=== PATIENT | male | born 1980 | race Caucasian/White ===

== ENCOUNTER 2021-06-01 09:41 | Emergency (ER) | payer OTHER, SELFPAY ==
--- NOTE | ~2021-06-01 | CT_ITS ---
EXAMINATION: CT ABDOMEN AND PELVIS WITH CONTRAST CLINICAL INFORMATION: Right lower quadrant and periumbilical pain. Umbilical hernia. COMPARISON: Previous CT of the abdomen and pelvis September 2011 TECHNIQUE: Multidetector volumetric images were obtained from the superior aspect of the liver through the pubic symphysis following administration 85 mL of Omnipaque 350 intravenous contrast. Sagittal and coronal reformatted images were obtained on the technologist's workstation. Oral contrast: Yes This CT examination was performed using dose optimization techniques as appropriate, variously including the following: *Automated exposure control *Adjustment of mA and/or kV according to patient size (this includes techniques or standardized protocols for targeted exams where dose is matched to indication/reason for exam; i.e. extremities or head) *Use of iterative reconstruction technique DLP: 973 mGy-cm FINDINGS: LUNG BASES: Limited due to artifact from respiratory motion. There are innumerable semisolid nodules seen at both lung bases. Largest measures 1 cm. LIVER, GALLBLADDER, AND BILIARY TREE: The liver is low in attenuation suggestive of fatty infiltration. There is a 5 mm low-attenuation lesion in the medial segment of the right lobe of the liver series 3. This is new from previous exam. Liver is otherwise unremarkable. The gallbladder is unremarkable. PANCREAS: Unremarkable. SPLEEN: Unremarkable. ADRENAL GLANDS: Unremarkable. KIDNEYS AND URETERS: There is abnormal orientation of the right kidney with anteriorly oriented renal pelvis. There is a 5 mm low-attenuation lesion in the right kidney axial image 38 series 3 that is new. The left kidney is unremarkable. BLADDER: Unremarkable. GASTROINTESTINAL TRACT: The small and large bowel are unremarkable. The appendix is is not seen and appears to have been removed. ABDOMINAL WALL: There is a 3.5 x 4 x 6 cm supraumbilical hernia containing fat. There is a smaller 2 x 3 cm umbilical hernia containing fat. There is some stranding of the fat sat this appears increased from September 2011 exam. There is fat in the right inguinal canal. LYMPH NODES: Normal. VASCULAR: Unremarkable. PELVIC VISCERA: Unremarkable. OSSEOUS STRUCTURES: Unremarkable. CT/CT abdomen pelvis w con IMPRESSION: Supra umbilical and umbilical hernias containing fat. These appear increased from September 2011 exam. Fatty liver. New 5 mm low-attenuation lesion in the medial segment of the left lobe of the liver and right kidney. Innumerable small semisolid nodules at both lung bases. Fleischner guidelines were followed.
[2021-06-01 09:48] VITALS: BP 115/80; PULSE 96; RESP 18; TEMP 37.1; O2SAT 96; BMI 41.0
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
[2021-06-01 11:20] LABS: MANUAL DIFF FLAG NO
[2021-06-01 11:23] LABS: Basophils Percent Auto 0.2 % (0-2); Hematocrit 41.7 % (42.0-52.0); Hemoglobin 13.4 g/dl (14.0-18.0); Imm Gran Abs Auto 0.02 X10*3/uL (0.00-0.03); Imm Gran Pct Auto 0.4 % (0.0-0.4); Lymphocytes Absolute Auto 1.2 X10*3/uL (1.2-4.9); Lymphocytes Percent Auto 23.8 % (20-40); Mean Corpuscular HGB Conc 32.1 g/dl (31.0-36.0); Mean Corpuscular Hemoglobin 26.8 pg (27.0-33.0); Mean Corpuscular Volume 83.4 fL (80.0-98.0); Monocytes Absolute Auto 0.4 X10*3/uL (0.1-1.2); Monocytes Percent Auto 7.3 % (2-11); Neutrophils Absolute Auto 3.4 x10*3/uL (2.0-8.3); Neutrophils Percent Auto 68.3 % (45-73); Platelet Count 236 X10*3/uL (160-400); Red Cell Distribution Width 12.7 % (11.0-16.0); White Blood Count 4.9 X10*3/uL (4.8-10.8)
[2021-06-01] MEDS: ondansetron HCL 4 MG/2 ML VIAL IVPUSH (11:32)
[2021-06-01] MEDS: 0.9 % Sodium Chloride 1,000 ML 999 ML IV (11:33)
[2021-06-01 11:39] LABS: Alanine Aminotransferase 35 U/L (0-40); Albumin Level 4.1 g/dL (3.5-5.0); Alkaline Phosphatase 49 U/L (39-117); Anion Gap 13 (12-20); Aspartate Amino Transferase 45 U/L (5-37); Bilirubin Total 0.3 mg/dL (0.0-1.0); Blood Urea Nitrogen 9 mg/dL (9-16); Carbon Dioxide 26 mmol/L (22-29); Chloride 103 mmol/L (96-108); Creatinine Clr Calc Pharmacy 111.2; Estimated Glomerular Filt Rate > 60; Glucose Random 118 mg/dL (60-115); Lipase 11 U/L (8-78); Sodium 138 mmol/L (135-145); Total Protein 7.5 g/dL (6.5-8.0)
[2021-06-01 11:47] LABS: Appearance Urine CLEAR; Color Urine YELLOW; Glucose Urine UA NEG (NEG); Leukocyte Esterase Urine NEG (NEG); Nitrite Urine NEG (NEG); Specific Gravity - Urine >= 1.030 (1.005-1.025); UACC Culture Trigger NO; Urine Blood 2+ (NEG); Urine Ketones NEG (NEG); Urine Protein 2+ MG/DL (NEG-TRACE)
[2021-06-01 12:00] LABS: RBC Urine 0-2 /HPF (0); WBC Urine 0-2 /HPF (0-4)
[2021-06-01 12:01] LABS: Amorphous Sediment Urine TRACE /LPF; Mucus Urine 1+ /LPF
[2021-06-01] MEDS: iohexoL 350 MG/ML 100 ML INFUS..BTL IV (12:11)
[2021-06-01] MEDS: Albuterol Sulfate 90 MCG 8 GM INHALER 2 PUFF INHALE (13:03)
[2021-06-01 13:05] VITALS: RESP 24; O2SAT 96
[2021-06-01] MEDS: dexAMETHasone 6 MG TABLET PO (14:02)
== END 2021-06-01 14:08 | disposition home or self-care (01) ==
PROVIDERS: Physician Assistant; Emergency Provider Emergency Medicine; PCP Internal Medicine
DX: U07.1 COVID-19 (principal); J45.909 Unspecified asthma, uncomplicated; K42.9 Umbilical hernia without obstruction or gangrene; Z79.899 Other long term (current) drug therapy; Z20.822 Contact with and (suspected) exposure to COVID-19
CPT/HCPCS: 36415; 74177; 80053; 81001; 83690; 85025; 94640; 96361; 96374; 99284; J2405; J8540; Q9967

== ENCOUNTER 2023-07-14 10:43 | Emergency (ER) | payer OTHER, SELFPAY ==
--- NOTE | ~2023-07-14 | XR_ITS ---
EXAMINATION: XR CHEST CLINICAL INFORMATION: Palpitations. Shortness of breath. COMPARISON: 08/30/2017 TECHNIQUE: Frontal view of the chest was obtained. FINDINGS: The lungs are well expanded. No focal consolidation. No pleural effusion. Cardiac silhouette is unchanged. XR/XR chest 1V IMPRESSION: No acute abnormality.
--- NOTE | 2023-07-14 10:47 | ECG_ITS ---
Test Reason : palpitations Blood Pressure : / mmHG Vent. Rate : 093 BPM Atrial Rate : 093 BPM P-R Int : 114 ms QRS Dur : 070 ms QT Int : 334 ms P-R-T Axes : 064 -07 015 degrees QTc Int : 415 ms Normal sinus rhythm with sinus arrhythmia Normal ECG No previous ECGs available Referred By: Generic ED Physician Electronically Signed By:ERNA LEWIS MD
[2023-07-14 11:09] VITALS: BP 117/79; PULSE 89; RESP 18; TEMP 36.4; O2SAT 98; BMI 39.2
--- NOTE | 2023-07-14 11:13 | ED_ITS ---
HPI - General Adult General Chief complaint: Arrhythmia/Palpitations Stated complaint: rapid heart beat Time Seen by Provider: 07/14/23 12:20 History of Present Illness HPI narrative: The patient is an ordinarily healthy 43-year-old. He is on no medications. He is somewhat overweight but has no other medical history. He works as a [employer]. The patient says that yesterday evening at around 22:00 he was doing nothing in particular while sitting at a table when he felt that his heart started to pound and race. This lasted somewhere between 5 and 10 minutes. It was quite impressive and he was distinctly aware of his heart beating and his heart beating rapidly and very hard. However the symptoms resolved after 5 or 10 minutes and he decided to not make much of it. He went to bed. At around 04:00 he woke up and went to the bathroom. He then felt his heart pounding again in a similar manner and he felt as if he might pass out. He became sweaty. This occasion lasted about 10-20 minutes. After it subsided he decided to go back to sleep and then come to the hospital in the morning. Later in the morning he woke up and was going about his daily routine when he again felt his heart racing in a manner similar to the previous 2 episodes. This was at around 09:00. He again felt his heart pounding and racing and as if he might pass out. This also lasted between 10 and 20 minutes. He sat down and rested awhile. Eventually his symptoms subsided and ultimately he felt well enough to drive himself to the hospital. The patient has never had anything like this happen to him before. The patient has had no recent illnesses or injury. He says he has been moving from 1 apartment to another and so he has been doing a fair amount of exertion recently. The patient's mother in her late 50s of colon cancer. Patient's younger brother in his late 30s also of colon cancer. The patient's father is alive but he does not know much about his father's health. He suspects his father is in his 60s. His father is an alcoholic. He is not in contact with his father. Related Data Previous Rx's Medication Instructions Recorded albuterol sulfate 90 mcg/actuation 2 puff inhalation Q4-6H PRN 01/28/22 aerosol inhaler shortness of breath or wheezing #8.5 grams benzonatate 200 mg capsule 200 mg PO TID 5 days #15 caps 06/01/21 cyclobenzaprine 5 mg tablet 5 mg PO TID PRN muscle spasm 3 06/01/21 days #9 tabs dexamethasone 6 mg tablet 6 mg PO DAILY 3 days #3 tabs 06/01/21 Allergies Allergy/AdvReac Type Severity Reaction Status Date / Time No Known Allergies Allergy Verified 07/14/23 11:15 Review of Systems 2 Review of Systems: Yes all other systems are reviewed and are negative [facility] Past Medical History Medical History Asthma COVID-19 Obese Social History Social History Advance Directives: No Advance Directives Information Provided: No Physical Exam ED Vital Signs: Vital Signs - 24 hr 07/14/23 11:09 07/14/23 12:22 07/14/23 13:52 Temperature 97.6 F 97.9 F Pulse Rate 89 71 67 Respiratory Rate 18 16 18 Blood Pressure 117/79 111/70 105/64 Pulse Oximetry 98 98 98 Oxygen Delivery Method Room Air Room Air Room Air BMI result Body Mass Index 39.2 Const Other: The patient is a somewhat overweight 43-year-old male who is awake and alert, pleasant and cooperative. He does not appear in distress. HENMT Other: Face is symmetrical, mucous membranes moist, tongue is midline. Eyes Other: Pupils are round equal, conjunctivae clear, extraocular movements intact. Neck Neck: Yes no JVD Resp Effort & Inspection: normal respiratory effort Auscultation: clear to auscultation bilaterally Cardio Rate: regular rate Rhythm: regular rhythm Heart sounds: S1 normal heart sound present and S2 normal heart sound present GI Other: Abdomen is soft and nontender Skin Other: Skin is dry and unremarkable Neuro Other: The patient is awake, alert, pleasant, cooperative. Cranial nerves are grossly intact. He moves all extremities normally and is grossly neurologically intact. Extrem Other: The patient has some mild varicose veins apparent in both lower legs. Otherwise the lower legs are unremarkable. No calf swelling or tenderness. No asymmetry. No edema. Course Course Course Narrative: RME: 43 yold male with no pmh presents to the ED for intermittent palpitations the past two days, near syncope and mild SOB. patient denies any chest pain, recent travel, or recent surgery. EKG, labs, and CHest xray ordered. HpI and Exam and asesment to be done by ED provider. Medical Decision Making Medical Decision Making [facility] Narrative: The patient is an ordinarily healthy 43-year-old who describes having 3 episodes of palpitations with a sense of a racing heartbeat and near-syncope. These episodes occurred within the last 24 hours. The patient is a nonsmoker. There is no family history of early coronary disease at least as far as he is able to determine. His EKG shows a mildly short W[place] but no very strong findings suggestive of WPW. Based on his description of the episodes he may have had episodes of SVT or possibly AFib. I do not have a significant suspicion for more alarming processes such as an acute coronary syndrome or pulmonary embolism. His troponins are flat. His D-dimer is undetectable. His chest x- ray is clear. Other labs are unremarkable. I think he may be discharged to follow up with his regular doctor or Cardiology. It would probably be reasonable for him to have a wearable laboratory monitor for a while. He should return if worse. Lab Data 07/14/23 11:32 07/14/23 11:32 Labs: Lab Results 07/14/23 07/14/23 Range/Units 11:32 13:54 WBC 7.1 (4.8-10.8) X10*3/uL RBC 5.75 (4.60-5.80) X10*6/uL Hgb 14.5 (14.0-18.0) g/dl Hct 45.9 (42.0-52.0) % MCV 79.8 L (80.0-98.0) fL MCH 25.2 L (27.0-33.0) pg MCHC 31.6 (31.0-36.0) g/dl RDW 17.8 H (11.0-16.0) % Plt Count 345 D (160-400) X10*3/uL MPV 10.0 (9.4-12.4) fL Immature Gran % (Auto) 0.3 (0.0-0.4) % Neut % (Auto) 71.6 (45-73) % Lymph % (Auto) 20.8 (20-40) % Mccone % (Auto) 6.2 (2-11) % Eos % (Auto) 0.8 (0-4) % Baso % (Auto) 0.3 (0-2) % Lymph # (Auto) 1.5 (1.2-4.9) X10*3/uL Mccone # (Auto) 0.4 (0.1-1.2) X10*3/uL Eos # (Auto) 0.1 (0.0-0.4) X10*3/uL Baso # (Auto) 0.0 (0.0-0.2) X10*3/uL Abs Immat Gran (auto) 0.02 (0.00-0.03) X10*3/uL Absolute Neuts (auto) 5.1 (2.0-8.3) x10*3/uL Absolute Nucleated RBC 0.000 (0.0-0.012) X10*3/uL Nucleated RBC % (auto) 0.0 (0.0-0.2) /100WBC PT 11.6 (11.1-13.3) SEC INR 1.0 (0.9-1.1) APTT 26.5 (26.0-36.8) SEC D-Dimer High Sensitivty < 150 NG/ML Sodium 142 (135-145) mmol/L Potassium 4.1 (3.3-5.1) mmol/L Chloride 109 H (96-108) mmol/L Carbon Dioxide 27 (22-29) mmol/L Anion Gap 10 L (12-20) BUN 21 H (9-16) mg/dL Creatinine 1.12 (0.5-1.4) mg/dL Estim Creat Clear Calc 100.1 Estimated GFR > 60 Random Glucose 114 (60-115) mg/dL Calcium 9.5 (8.4-10.2) mg/dL Total Bilirubin 0.5 (0.0-1.0) mg/dL AST 33 (5-37) U/L ALT 55 H (0-40) U/L Alkaline Phosphatase 51 (39-117) U/L Troponin I High Sens < 2.7 < 2.7 (<3.5-35.0) ng/L C-Reactive Protein 0.28 (< or = 0.50) mg/dL B-Natriuretic Peptide 94 (<100) pg/mL Total Protein 7.4 (6.5-8.0) g/dL Albumin 4.0 (3.5-5.0) g/dL TSH 2.17 (0.32-4.0) uIU/mL Independent Interpretation I performed an independent interpretation of an: EKG Interpretation: EKG at 10:48 shows normal sinus rhythm with a sinus arrhythmia. The WY interval is 114. There is a very vague suggestion of a delta wave. Otherwise it is an unremarkable EKG. No ischemic changes. Discharge Plan Discharge Clinical Impression: Palpitations, Near syncope Patient Disposition: Home, Self-Care Additional Instructions: Your testing in the emergency room today is reassuring from the point of view of a heart attack or blood clot in your lungs, or other obviously acutely dangerous process. Nevertheless it is possible you are having abnormal rapid heart rates causing your symptoms. I think you will probably need to get a wearable laboratory monitor to try to identify what has been happening with your racing heartbeats. Therefore please contact your regular doctor's office and also the cardiology office (Dr. Landry's office) to arrange for follow-up and possible additional cardiac monitoring. Return to the emergency room if significantly worse. Prescriptions: No Action benzonatate 200 mg capsule 200 mg PO TID 5 Days Qty: 15 0RF dexamethasone 6 mg tablet 6 mg PO DAILY 3 Days Qty: 3 0RF albuterol sulfate 90 mcg/actuation HFA aerosol inhaler 2 puff inhalation Q4-6H PRN (Reason: shortness of breath or wheezing) Qty: 8.5 0RF cyclobenzaprine 5 mg tablet 5 mg PO TID PRN (Reason: muscle spasm) 3 Days Qty: 9 0RF Referrals: Po,Kylie Wilson MD [Primary Care Provider] - (Episodes of palpitations and near- syncope, ER workup is negative. Suspect possible episodes of SVT versus episodes of AFib) Marty Landry MD [Physician] - (Episodes of palpitations and near-syncope, ER workup is negative. Suspect possible episodes of SVT versus episodes of AFib) Interventions: ED Discharge Assessment Last Done: 07/14/23 14:55 Discharge Date/Time: 07/14/23 14:55
[2023-07-14 11:49] LABS: MANUAL DIFF FLAG NO
[2023-07-14 11:50] LABS: Basophils Percent Auto 0.3 % (0-2); Eosinophils Absolute Auto 0.1 X10*3/uL (0.0-0.4); Eosinophils Percent Auto 0.8 % (0-4); Hematocrit 45.9 % (42.0-52.0); Hemoglobin 14.5 g/dl (14.0-18.0); Imm Gran Abs Auto 0.02 X10*3/uL (0.00-0.03); Imm Gran Pct Auto 0.3 % (0.0-0.4); Lymphocytes Absolute Auto 1.5 X10*3/uL (1.2-4.9); Lymphocytes Percent Auto 20.8 % (20-40); Mean Corpuscular HGB Conc 31.6 g/dl (31.0-36.0); Mean Corpuscular Hemoglobin 25.2 pg (27.0-33.0); Mean Corpuscular Volume 79.8 fL (80.0-98.0); Monocytes Absolute Auto 0.4 X10*3/uL (0.1-1.2); Monocytes Percent Auto 6.2 % (2-11); Neutrophils Absolute Auto 5.1 x10*3/uL (2.0-8.3); Neutrophils Percent Auto 71.6 % (45-73); Platelet Count 345 X10*3/uL (160-400); Red Blood Count 5.75 X10*6/uL (4.60-5.80); Red Cell Distribution Width 17.8 % (11.0-16.0); White Blood Count 7.1 X10*3/uL (4.8-10.8)
[2023-07-14 11:57] LABS: Prothrombin Time 11.6 SEC (11.1-13.3)
[2023-07-14 11:59] LABS: Partial Thromboplastin Time 26.5 SEC (26.0-36.8)
[2023-07-14 12:13] LABS: Alanine Aminotransferase 55 U/L (0-40); Alkaline Phosphatase 51 U/L (39-117); Anion Gap 10 (12-20); Aspartate Amino Transferase 33 U/L (5-37); Bilirubin Total 0.5 mg/dL (0.0-1.0); Blood Urea Nitrogen 21 mg/dL (9-16); Calcium 9.5 mg/dL (8.4-10.2); Carbon Dioxide 27 mmol/L (22-29); Chloride 109 mmol/L (96-108); Creatinine Clr Calc Pharmacy 100.1; Estimated Glomerular Filt Rate > 60; Glucose Random 114 mg/dL (60-115); Potassium 4.1 mmol/L (3.3-5.1); Sodium 142 mmol/L (135-145); Total Protein 7.4 g/dL (6.5-8.0)
[2023-07-14 12:17] LABS: B Type Natriuretic Peptide 94 pg/mL (<100)
[2023-07-14 12:21] LABS: Troponin-I High Sensitivity < 2.7 ng/L (<3.5-35.0)
[2023-07-14 12:22] VITALS: BP 111/70; PULSE 71; RESP 16; TEMP 36.6; O2SAT 98
[2023-07-14 12:36] LABS: TSH reflex Free T4 2.17 uIU/mL (0.32-4.0)
[2023-07-14 13:08] LABS: D Dimer High Sensitivity < 150 NG/ML
[2023-07-14 13:10] LABS: C Reactive Protein 0.28 mg/dL (< or = 0.50)
[2023-07-14 13:52] VITALS: BP 105/64; PULSE 67; RESP 18; O2SAT 98
[2023-07-14 14:43] LABS: Troponin-I High Sensitivity < 2.7 ng/L (<3.5-35.0)
== END 2023-07-14 14:55 | disposition home or self-care (01) ==
PROVIDERS: Physician Assistant; Emergency Provider Emergency Medicine; PCP Internal Medicine
DX: R00.2 Palpitations (principal); R55 Syncope and collapse; J45.909 Unspecified asthma, uncomplicated
CPT/HCPCS: 36415; 71045; 80053; 83880; 84443; 84484; 85025; 85379; 85610; 85730; 86140; 93005; 99283

== ENCOUNTER → 2023-07-14 10:47 | Outpatient (BNV) | payer SELFPAY | PROVIDERS: Emergency Provider Emergency Medicine; PCP Internal Medicine; Visit Provider Internal Medicine Cardiovascular Disease | DX: R00.2 Palpitations (principal) | CPT/HCPCS: 93010 ==

== ENCOUNTER 2024-04-03 13:38 | Emergency (ER) | payer SELFPAY ==
--- NOTE | ~2024-04-03 | XR_ITS ---
EXAMINATION: XR CHEST CLINICAL INFORMATION: Difficulty breathing. COMPARISON: Most recent chest radiograph dated 07/14/2023. TECHNIQUE: 2 views of the chest were obtained. FINDINGS: The lungs are clear. The cardiomediastinal silhouette is normal in size. There is no pleural effusion or pneumothorax. No acute osseous abnormality. XR/XR chest 2V IMPRESSION: No acute cardiopulmonary findings. Electronically signed by: Cory Dorado MD 04/03/2024 02:12 PM [facility]
[2024-04-03 13:45] VITALS: BP 126/81; PULSE 99; RESP 18; TEMP 36.7; O2SAT 98; BMI 39.5
--- NOTE | 2024-04-03 13:47 | ED_ITS ---
HPI - General Adult General Chief complaint: Upper Respiratory Symptoms Stated complaint: pneumonia ? Time Seen by Provider: 04/03/24 14:22 Source: patient Mode of arrival: ambulatory Limitations: no limitations History of Present Illness ED Provider: Benita Juárez NP HPI narrative: Patient is a 44-year-old male who presents emergency department for evaluation. He reports 1 month ago he became ill with upper respiratory symptoms cough, congestion, tightness. After about 2 weeks symptoms had resolved for about a week. However, over the past week he started feeling shortness of breath, difficulty breathing while he was running and exercising. He reports having a fever last night of 101, this morning reports a temperature with a digital throughout mother that was ranging between 105 106 F. Took Tylenol cold and flu around 11:30 with resolution of fever. He has been eating and drinking normally. He denies any known sick contacts. He has had increased use of his albuterol inhaler without improvement in breathing and nebulizer with some improvement. Denies headache, dizziness, neck pain, neck stiffness, chest pain, sore throat, nausea, vomiting, abdominal pain, numbness or tingling of the extremities, genitourinary symptoms. Denies lower extremity redness pain or swelling, pedal edema, history of VTE /malignancy Related Data Previous Rx's ?Medication ?Instructions ?Recorded albuterol sulfate 90 mcg/actuation 2 puff inhalation Q4-6H PRN 06/01/21 aerosol inhaler shortness of breath or wheezing #8.5 grams benzonatate 200 mg capsule 200 mg PO TID 5 days #15 caps 06/01/21 cyclobenzaprine 5 mg tablet 5 mg PO TID PRN muscle spasm 3 06/01/21 days #9 tabs dexamethasone 6 mg tablet 6 mg PO DAILY 3 days #3 tabs 06/01/21 amoxicillin 500 mg capsule 1,000 mg (2 x 500 mg) PO TID 5 04/03/24 days #30 caps Allergies Allergy/AdvReac Type Severity Reaction Status Date / Time No Known Allergies Allergy Verified 04/03/24 13:50 Review of Systems Review of Systems: Yes all other systems are reviewed and are negative PMFSH Past Medical History Attestation statement: The following information was validated with the patient. Source: old records reviewed Medical History COVID-19 Obese Asthma Social History Social History Advance Directives: No Advance Directives Information Provided: Yes Physical Exam ED Vital Signs: Vital Signs - 24 hr 04/03/24 13:45 Temperature 98.1 F Pulse Rate 99 Respiratory Rate 18 Blood Pressure 126/81 Pulse Oximetry 98 Oxygen Delivery Method Room Air BMI result Body Mass Index 39.5 Appearance: Alert.?Oriented to person, place and time. No acute distress.?Normal affect. Eyes: Pupils equal, round and reactive to light.? ENT: TM normal bilaterally. Pharynx normal.?? Neck: Normal inspection.? Neck supple.??No cervical adenopathy CVS: Heart sounds normal. Normal heart rate and rhythm.? Pulses normal.?? Respiratory: No respiratory distress.? Lung sounds clear to auscultation bilaterally?? Abdomen: Soft and non-tender. Normoactive bowel sounds. Skin: Skin warm and dry.? Normal skin color.? ? Extremities: No lower extremity edema.? Neuro: Moves all extremities spontaneously. Sensation intact bilaterally. No motor deficits. Ambulates with normal steady gait. Course Course Course Narrative: This is a Rapid Medical Examination (RME) performed by Jignesh Miller PA-C in triage. Full HPI, ROS, assessment and treatment plan per primary provider in the Main ED. 44 yo male hx of asthma here for difficulty breathing x3 days. reports palpitations last night. used his albuterol inhaler which worsened his symptoms and caused chest tightness. then used his nebulizer early this morning which helped however his symptoms have not resolved. reports a temp of 106F this morning. took tylenol cold/flu around 1130 today. admits to exposure to pneumonia 4 wks ago. no other known sick contacts. + lungs clear, diminished to bases. afebrile. Plan: viral swabs, CXR Medical Decision Making Medical Decision Making MDM Narrative: Patient is a 44-year-old male past medical history of asthma, presenting for evaluation of upper respiratory symptoms. COVID-19 /RSV/influenza testing are negative. At this time history and physical exam not consistent with ACS/PE/no chest pain, no high-risk past medical history, wells score with low risk no clinical evidence of DVT. Was ill with upper respiratory symptoms 1 month ago resolution of symptoms for a week before return if symptoms again as per HPI. Currently he is Well-appearing, nontoxic, afebrile, no tachycardia or tachypnea/hypoxia. Speaking clear full sentences, ambulatory with steady gait. Lung sounds are clear to the apices bilaterally. Discussed with patient concern for bronchitis versus early pneumonia that may not be visible on the chest x- ray, given his high-grade fever, I will treat with a course of antibiotics, Discussed conservative treatment including rest, hydration, Tylenol/ibuprofen as needed for fever and body aches, saline nasal spray, humidifier, over-the- counter cold medication. Advised to follow-up with primary care provider as needed, discussed reasons to return back to the emergency department. All questions were answered. Patient discharged home in stable condition. Differential Diagnosis Differential Diagnoses: The differential diagnosis associated with the presentation includes ( See narrative above) Admission/Observation Consideration of admission/observation: Escalation of care including admission/observation considered ( see narrative above) Lab Data MDM Lab Attestation statement: I reviewed the patient's lab results. ( see narrative above) Labs: Lab Results 04/03/24 Range/Units 13:53 Influenza Type A (PCR) NEGATIVE (Negative) Influenza Type B (PCR) NEGATIVE (Negative) RSV RNA Qual (PCR) NEGATIVE (Negative) SARS-CoV-2 RNA (RT-PCR) NEGATIVE (Negative) Independent Interpretation I performed an independent interpretation of an: Plain X-Ray (No consolidation or infiltrate) Radiology Impression Discussion of test interpretation with radiology: I have reviewed the rad iologist's reading. Radiologist Impression: XR/XR chest 2V IMPRESSION: No acute cardiopulmonary findings. External Record Review External record reviewed: Outpatient record Prescription Management I considered prescription management with: Pain Medication ( acetaminophen/ibuprofen) and Antibiotic Discharge Plan Discharge Clinical Impression: Bronchitis Patient Disposition: Home, Self-Care Instructions: Acute Bronchitis (ED) Additional Instructions: Testing today for COVID flu and RSV were negative. As discussed, your chest x-ray does not show any obvious pneumonia at this time, however given your recent illness followed by a period of resolution of symptoms and return of symptoms with high-grade fever you are being treated with a course of antibiotics. Complete the entire course not skipped any doses or stop taking early even if you begin to feel better. Follow-up with your primary care doctor. Return to emergency department any new or worsening symptoms or concerns. You can take ibuprofen 200 mg, 3 tablets (600mg) every 6-8 hours as needed for pain, in addition to Tylenol 500 mg, 2 tablets (1,000mg) every 4-6 hours as needed for pain, but not to exceed 3 doses daily (3,000mg).? Continue use of your albuterol inhaler/nebulizer as needed for shortness of breath or wheezing. Prescriptions: New amoxicillin 500 mg capsule 1,000 mg PO TID 5 Days Qty: 30 0RF No Action benzonatate 200 mg capsule 200 mg PO TID 5 Days Qty: 15 0RF dexamethasone 6 mg tablet 6 mg PO DAILY 3 Days Qty: 3 0RF albuterol sulfate 90 mcg/actuation HFA aerosol inhaler 2 puff inhalation Q4-6H PRN (Reason: shortness of breath or wheezing) Qty: 8.5 0RF cyclobenzaprine 5 mg tablet 5 mg PO TID PRN (Reason: muscle spasm) 3 Days Qty: 9 0RF Referrals: Po,Kylie Wilson MD [Primary Care Provider] - Print Language: Kyrgyz
[2024-04-03 14:42] LABS: Influenza A PCR NEGATIVE (Negative); Influenza B PCR NEGATIVE (Negative); Resp Syncy Virus RNA Qual PCR NEGATIVE (Negative); SARS COV2 PCR INHOUSE NEGATIVE (Negative)
[2024-04-03 15:44] VITALS: BP 126/85; PULSE 92; RESP 16; TEMP 36.4; O2SAT 95
[2024-04-03 15:52] VITALS: BP 126/85; PULSE 92; RESP 16; TEMP 36.4; O2SAT 95
== END 2024-04-03 15:52 | disposition home or self-care (01) ==
PROVIDERS: Physician Assistant Medical; Emergency Provider Emergency Medicine; PCP Internal Medicine
DX: J40 Bronchitis, not specified as acute or chronic (principal); Z03.818 Encounter for observation for suspected exposure to other biological agents ruled out; R50.9 Fever, unspecified; R05.9 Cough, unspecified
CPT/HCPCS: 0241U; 71046; 99282; 99283

== ENCOUNTER 2024-05-21 05:55 | Emergency (ER) | payer SELFPAY ==
[2024-05-21] VITALS (11 sets, daily range): BP systolic 105–121; BP diastolic 66–91; PULSE 70–145; RESP 16–20; TEMP 36.4–37.1; O2SAT 96–100; BMI 38.8
--- NOTE | 2024-05-21 | ECG_ITS ---
Test Reason : chest px Blood Pressure : */* mmHG Vent. Rate : 141 BPM Atrial Rate : * BPM P-R Int : * ms QRS Dur : 72 ms QT Int : 290 ms P-R-T Axes : * -13 38 degrees QTcB Int : 444 ms Atrial fibrillation with rapid ventricular response Abnormal ECG When compared with ECG of 14-Jul-2023 10:48, Atrial fibrillation has replaced Sinus rhythm Vent. rate has increased by 48 bpm Referred By: Generic ED Physician Electronically Signed By: ERNA LEWIS MD
--- NOTE | ~2024-05-21 | XR_ITS ---
CLINICAL HISTORY: shortness of breath 2 view chest x-ray Comparison: CR/NJ/SR - XR CHEST 1V - 07/14/23 11:30 EDT Findings: No consolidation or effusion. Normal size heart. No acute fracture. IMPRESSION: 1. No acute findings. This document has been electronically signed by: Zuleyma Martines MD on 05/21/2024 06:49:40
[2024-05-21 06:58] LABS: MANUAL DIFF FLAG NO
[2024-05-21 06:59] LABS: Basophils Percent Auto 0.2 % (0-2); Eosinophils Percent Auto 0.5 % (0-4); Hematocrit 44.6 % (42.0-52.0); Hemoglobin 14.6 g/dl (14.0-18.0); Imm Gran Abs Auto 0.02 X10*3/uL (0.00-0.03); Imm Gran Pct Auto 0.2 % (0.0-0.4); Lymphocytes Absolute Auto 2.1 X10*3/uL (1.2-4.9); Lymphocytes Percent Auto 25.1 % (20-40); Mean Corpuscular HGB Conc 32.7 g/dl (31.0-36.0); Mean Corpuscular Volume 82.6 fL (80.0-98.0); Monocytes Absolute Auto 0.5 X10*3/uL (0.1-1.2); Neutrophils Absolute Auto 5.7 x10*3/uL (2.0-8.3); Platelet Count 317 X10*3/uL (160-400); Red Cell Distribution Width 13.2 % (11.0-16.0); White Blood Count 8.4 X10*3/uL (4.8-10.8)
[2024-05-21 07:01] LABS: Venous Blood Gas Refer to POC result
[2024-05-21 07:04] LABS: Prothrombin Time 11.7 SEC (10.9-12.4)
[2024-05-21 07:07] LABS: VBG Base Excess 1.5 mmol/L; VBG HCO3 27 mmol/L (22-26); VBG pCO2 49 mmHg; VBG pH 7.35 (7.32-7.43); VBG pO2 49 mmHg
--- NOTE | 2024-05-21 07:09 | ED_ITS ---
HPI - General Adult General Chief complaint: Upper Respiratory Symptoms Stated complaint: asthma attack Time Seen by Provider: 05/21/24 07:09 History of Present Illness ED Provider: Gina ORLANDO narrative: The patient is a 44-year-old male with a history of asthma. He is usually only prescribed an asthma inhaler. He says that he has sometimes used montelukast which he has received from friends who has been prescribed it but he has never been prescribed montelukast. Over the last 3 months the patient has had intermittent episodes of heart palpitations and shortness of breath that he has attributed to asthma. He says that his symptoms have been worse over the last 24-48 hours. This morning he felt sufficiently short of breath that he finally thought he ought to come to the emergency room because of his shortness of breath. On arrival here he was found to be in atrial fibrillation with a rapid ventricular response. He admits that during the episodes of shortness of breath recently he has had a sense of palpitations and a racing heart. He has been unaware that he has any cardiac dysrhythmia and he has no history of atrial fibrillation. He has no pain or swelling in his legs. He does not drink alcohol with any regularity. He thinks he may have a family history of atrial fibrillation. No significant chest pain. No fever, sweats, chills. Related Data Previous Rx's ?Medication ?Instructions ?Recorded albuterol sulfate 90 mcg/actuation 2 puff inhalation Q4-6H PRN 06/01/21 aerosol inhaler shortness of breath or wheezing #8.5 grams benzonatate 200 mg capsule 200 mg PO TID 5 days #15 caps 06/01/21 cyclobenzaprine 5 mg tablet 5 mg PO TID PRN muscle spasm 3 06/01/21 days #9 tabs dexamethasone 6 mg tablet 6 mg PO DAILY 3 days #3 tabs 06/01/21 amoxicillin 500 mg capsule 1,000 mg (2 x 500 mg) PO TID 5 04/03/24 days #30 caps flecainide 50 mg tablet 50 mg PO BID 30 days #60 tabs 05/21/24 metoprolol succinate 25 mg 25 mg PO DAILY #30 tabs 05/21/24 tablet,extended release 24 hr Allergies Allergy/AdvReac Type Severity Reaction Status Date / Time No Known Allergies Allergy Verified 05/21/24 06:11 Review of Systems 2 Review of Systems: Yes all other systems are reviewed and are negative [facility] Past Medical History Medical History COVID-19 Obese Asthma Physical Exam ED Vital Signs: Vital Signs - 24 hr 05/21/24 06:09 05/21/24 06:53 05/21/24 07:00 Temperature 97.6 F 98.2 F Pulse Rate 123 H 145 H Pulse Rate [Left Apical] 128 H Respiratory Rate 20 16 Blood Pressure 111/66 118/80 Pulse Oximetry 99 96 Oxygen Delivery Method Room Air 05/21/24 07:14 05/21/24 07:24 05/21/24 08:16 Temperature 98.7 F Pulse Rate 135 H 93 Pulse Rate [Left Apical] Respiratory Rate 17 Blood Pressure 116/73 110/71 Pulse Oximetry 97 100 Oxygen Delivery Method Room Air Room Air 05/21/24 09:52 05/21/24 09:57 05/21/24 12:52 Temperature 97.9 F Pulse Rate 130 H 104 H 85 Pulse Rate [Left Apical] Respiratory Rate 18 Blood Pressure 121/91 H 121/91 H 105/67 Pulse Oximetry 99 Oxygen Delivery Method 05/21/24 12:59 05/21/24 13:00 Temperature 98.0 F 97.5 F Pulse Rate 85 70 Pulse Rate [Left Apical] Respiratory Rate 18 16 Blood Pressure 105/67 105/67 Pulse Oximetry 96 96 Oxygen Delivery Method Room Air Room Air BMI result Body Mass Index 38.8 Const Other: the patient is a large man who was awake and alert and does not seem in obvious distress. HENOH Other: Face is symmetrical. Mucous membranes moist. Head: Yes normal to inspection, Yes normocephalic and Yes atraumatic Eyes General: appearance normal, both eyes and all related structures Neck Neck: Yes full ROM Resp Effort & Inspection: normal respiratory effort Auscultation: clear to auscultation bilaterally and wheezes (No wheezing) Cardio Other: Irregular rate and rhythm no murmur GI Other: abdomen is soft and nontender Skin Other: skin is dry and unremarkable Neuro Other: the patient is awake and alert with normal mental status. Cranial nerves 2-12 are intact. He moves his extremities symmetrically normally. Extrem Other: No peripheral edema Medications Administered Discontinued Medications Generic Name Dose Route Start Last Admin Trade Name Freq PRN Reason Stop Dose Admin Apixaban 5 mg 05/21/24 11:40 05/21/24 12:20 Apixaban 5 Mg Tablet PO 05/21/24 11:41 Not Given ONCE ONE Diltiazem HCl 20 mg 05/21/24 07:16 05/21/24 07:24 Diltiazem Hcl 50 Mg/10 Ml Vial IVPUSH 05/21/24 07:17 20 mg STAT STA Administration Diltiazem HCl 20 mg 05/21/24 09:25 05/21/24 09:52 Diltiazem Hcl 50 Mg/10 Ml Vial IVPUSH 05/21/24 09:26 20 mg STAT STA Administration Flecainide Acetate 50 mg 05/21/24 12:29 05/21/24 12:52 Flecainide Acetate 50 Mg Tablet PO 05/21/24 12:30 50 mg ONCE ONE Administration Furosemide 20 mg 05/21/24 11:43 05/21/24 12:20 Furosemide 20 Mg/2 Ml Vial IVPUSH 05/21/24 11:44 Not Given ONCE ONE Protocol Lactated Ringer's 1,000 mls @ 999 mls/hr 05/21/24 08:00 05/21/24 10:00 Lr IV 05/21/24 09:00 Infused .Q1H1M SHARMIN Infusion Metoprolol Succinate 50 mg 05/21/24 11:40 05/21/24 12:20 Metoprolol Succinate Er 50 Mg Tab.Er.24h PO Not Given DAILY SHARMIN Protocol Metoprolol Tartrate 25 mg 05/21/24 12:25 05/21/24 12:52 Metoprolol Tartrate 25 Mg Tablet PO 05/21/24 12:26 25 mg ONCE ONE Administration Protocol Medical Decision Making Medical Decision Making [facility] Narrative: the patient is a 44-year-old male who presents with a complaint of shortness of breath and palpitations. He has been having similar episodes many times over the last few months but considerably more intense over the last 24 hours. On exam the patient has findings consistent with atrial fibrillation with ventricular response rate. This was confirmed by 12 lead EKG. His AFib with RVR could be visualized on the monitoring specialist. His chads Vasc is 0. labs were done that were largely unremarkable including an undetectable D-dimer. The patient was given IV metoprolol initially for rate control. I consulted with Dr. Andrew who came to see the patient in the emergency department. Initially I had ordered IV diltiazem for rate control of his atrial fibrillation with rapid ventricular response rate. The patient seemed to have a decent response to this medication. Dr. Andrew requested an echocardiogram which was obtained in the emergency department. The patient's heart rate got somewhat faster and he was given a 2nd dose of IV diltiazem. Initially there was a plan to hospitalize the patient for more of a workup but he converted to a sinus rhythm prior to hospitalization. At that point Dr. Andrew felt the patient could probably be safely discharged. The patient will be started on flecainide and metoprolol. Lab Data 05/21/24 06:52 05/21/24 06:52 Labs: Lab Results 05/21/24 05/21/24 05/21/24 Range/Units 06:20 06:52 07:03 WBC 8.4 (4.8-10.8) X10*3/uL RBC 5.40 (4.60-5.80) X10*6/uL Hgb 14.6 (14.0-18.0) g/dl Hct 44.6 (42.0-52.0) % MCV 82.6 (80.0-98.0) fL MCH 27.0 (27.0-33.0) pg MCHC 32.7 (31.0-36.0) g/dl RDW 13.2 (11.0-16.0) % Plt Count 317 (160-400) X10*3/uL MPV 9.0 L (9.4-12.4) fL Immature Gran % (Auto) 0.2 (0.0-0.4) % Neut % (Auto) 68.0 (45-73) % Lymph % (Auto) 25.1 (20-40) % Crawford % (Auto) 6.0 (2-11) % Eos % (Auto) 0.5 (0-4) % Baso % (Auto) 0.2 (0-2) % Lymph # (Auto) 2.1 (1.2-4.9) X10*3/uL Crawford # (Auto) 0.5 (0.1-1.2) X10*3/uL Eos # (Auto) 0.0 (0.0-0.4) X10*3/uL Baso # (Auto) 0.0 (0.0-0.2) X10*3/uL Abs Immat Gran (auto) 0.02 (0.00-0.03) X10*3/uL Absolute Neuts (auto) 5.7 (2.0-8.3) x10*3/uL Absolute Nucleated RBC 0.000 (0.0-0.012) X10*3/uL Nucleated RBC % (auto) 0.0 (0.0-0.2) /100WBC PT 11.7 (10.9-12.4) SEC INR 1.0 (0.9-1.1) D-Dimer High Sensitivty < 150 NG/ML VBG pH 7.35 (7.32-7.43) VBG pCO2 49 mmHg VBG pO2 49 mmHg VBG HCO3 27 H (22-26) mmol/L VBG O2 Saturation 76.0 % VBG Base Excess 1.5 mmol/L Sodium 142 (135-145) mmol/L Potassium 4.2 (3.3-5.1) mmol/L Chloride 110 H (96-108) mmol/L Carbon Dioxide 27 (22-29) mmol/L Anion Gap 9 L (12-20) BUN 18 H (9-16) mg/dL Creatinine 1.03 (0.5-1.4) mg/dL Estim Creat Clear Calc 110.6 Estimated GFR > 60 Random Glucose 116 H (60-115) mg/dL Calcium 9.4 (8.4-10.2) mg/dL Magnesium 2.1 (1.6-2.6) mg/dL Total Bilirubin 0.4 (0.0-1.0) mg/dL AST 26 (5-37) U/L ALT 38 (0-40) U/L Alkaline Phosphatase 50 (39-117) U/L Troponin I High Sens < 2.7 (<3.5-35.0) ng/L B-Natriuretic Peptide 75 (<100) pg/mL Total Protein 7.9 (6.5-8.0) g/dL Albumin 4.4 (3.5-5.0) g/dL Lipase 18 (8-78) U/L TSH 3.30 (0.32-4.0) uIU/mL Influenza Type A (PCR) NEGATIVE (Negative) Influenza Type B (PCR) NEGATIVE (Negative) RSV RNA Qual (PCR) NEGATIVE (Negative) SARS-CoV-2 RNA (RT-PCR) NEGATIVE (Negative) Discharge Plan Discharge Clinical Impression: Atrial fibrillation with rapid ventricular response Patient Disposition: Home, Self-Care Instructions: A-fib (Atrial Fibrillation) (ED) Additional Instructions: It seems as though a lot of the symptoms that you have had recently are because of a new problem seemed to be having with your heart rate and rhythm. This problem is called atrial fibrillation. Fortunately you converted out of this abnormal rhythm to a normal rhythm once again while you were here in the emergency room. Your being started on 2 new medications. One of these medications is flecainide. This is a medication that helps keep you out of atrial fibrillation. Please take this 2 times a day. Additionally you are being started on medication called metoprolol which you should take once a day. This medication helps to keep your heart rate slow in case you go back into atrial fibrillation. Please pickers material handlers your prescriptions this afternoon and start taking both of them tomorrow morning. Please contact the cardiology office for a follow up appointment. Return to the emergency room if you feel significantly worse at any time. Prescriptions: New flecainide 50 mg tablet 50 mg PO BID 30 Days Qty: 60 0RF metoprolol succinate 25 mg tablet extended release 24 hr 25 mg PO DAILY Qty: 30 0RF No Action benzonatate 200 mg capsule 200 mg PO TID 5 Days Qty: 15 0RF dexamethasone 6 mg tablet 6 mg PO DAILY 3 Days Qty: 3 0RF albuterol sulfate 90 mcg/actuation HFA aerosol inhaler 2 puff inhalation Q4-6H PRN (Reason: shortness of breath or wheezing) Qty: 8.5 0RF cyclobenzaprine 5 mg tablet 5 mg PO TID PRN (Reason: muscle spasm) 3 Days Qty: 9 0RF amoxicillin 500 mg capsule 1,000 mg PO TID 5 Days Qty: 30 0RF Referrals: Ciro Andrew MD [Physician] - (new atrial fibrillation) Po,Kylie Wilson MD [Primary Care Provider] - Interventions: ED Discharge Assessment Last Done: 05/21/24 12:59 Discharge Date/Time: 05/21/24 13:00 Print Language: Arabic
[2024-05-21 07:20] LABS: B Type Natriuretic Peptide 75 pg/mL (<100)
[2024-05-21 07:21] LABS: Influenza A PCR NEGATIVE (Negative); Influenza B PCR NEGATIVE (Negative); Resp Syncy Virus RNA Qual PCR NEGATIVE (Negative); SARS COV2 PCR INHOUSE NEGATIVE (Negative)
[2024-05-21] MEDS: dilTIAZem HCL 50 MG/10 ML VIAL 20 MG IVPUSH ×2 (07:24→09:52)
[2024-05-21 07:31] LABS: Alanine Aminotransferase 38 U/L (0-40); Albumin Level 4.4 g/dL (3.5-5.0); Alkaline Phosphatase 50 U/L (39-117); Anion Gap 9 (12-20); Aspartate Amino Transferase 26 U/L (5-37); Bilirubin Total 0.4 mg/dL (0.0-1.0); Blood Urea Nitrogen 18 mg/dL (9-16); Calcium 9.4 mg/dL (8.4-10.2); Carbon Dioxide 27 mmol/L (22-29); Chloride 110 mmol/L (96-108); Creatinine Clr Calc Pharmacy 110.6; Estimated Glomerular Filt Rate > 60; Glucose Random 116 mg/dL (60-115); Lipase 18 U/L (8-78); Magnesium 2.1 mg/dL (1.6-2.6); Potassium 4.2 mmol/L (3.3-5.1); Sodium 142 mmol/L (135-145); Total Protein 7.9 g/dL (6.5-8.0)
[2024-05-21 07:36] LABS: Troponin-I High Sensitivity < 2.7 ng/L (<3.5-35.0)
[2024-05-21] MEDS: Lactated Ringers 1,000 ML 999 ML IV (08:13)
[2024-05-21 08:30] LABS: D Dimer High Sensitivity < 150 NG/ML
--- NOTE | 2024-05-21 08:50 | PC.NURSE ---
pt a&ox3, rr equal/non labored- lungs clear, ekg performed, classroom monitor applied pt afib on monitor, labs previously drawn, iv inserted- pt given dose of cardizem which slowed the rate some, 1L LR hung per order, pt states he has some generalized muscle discomfort- 2-3/10,
--- NOTE | 2024-05-21 09:24 | CA_ITS ---
Transthoracic Echocardiogram Patient (Last, First, Middle): Livan Buckner, Gender: Male Date of : 1980 Age: 44 Procedure Date: 05/21/2024 Procedure Type: Transthoracic Echocardiogram Location: ER Height: 172.72 cm Weight: 115.67 kg BSA: 2.27 m2 Heart Rate: bpm BP: 127 / 89 mmHg [employer]: Referring MD: Gustavo Fuentes MD Symptoms: new atrial fibrillation Study Quality: Fair Conclusions: - Normal left ventricular cavity size. There is mildly increased left ventricular wall thickness. The left ventricular systolic function is hyperdynamic. The visually estimated ejection fraction is >70%. There is no evidence of regional wall motion abnormalities. Diastolic function is indeterminate on the basis of available data. - Normal right ventricular cavity size and systolic function. - The left atrium is normal in size. Findings Left Ventricle Normal left ventricular cavity size. There is mildly increased left ventricular wall thickness. The left ventricular systolic function is hyperdynamic. The visually estimated ejection fraction is >70%. There is no evidence of regional wall motion abnormalities. Diastolic function is indeterminate on the basis of available data. Right Ventricle Normal right ventricular cavity size and systolic function. Atria The left atrium is normal in size. Aortic Valve The aortic valve structure and function is likely normal. There is no aortic valve stenosis. There is no aortic valve regurgitation. Mitral Valve Normal mitral valve structure and function. There is no mitral valve regurgitation. There is no mitral valve stenosis. Pulmonic Valve The pulmonic valve was not well visualized. Tricuspid Valve Normal tricuspid valve structure. There is no tricuspid valve regurgitation. Tricuspid regurgitation envelope is inadequate for calculation of right ventricular systolic pressure. Normal right atrial pressure. Great Vessels All visible segments of the aorta are normal in size. Venous The inferior vena cava is normal in size and collapses greater than 50% with inspiration. Pericardium/Pleural There is no evidence of pericardial effusion. Measurements 2D Linear Measurements IVSd: 1.05 0.6-0.9/0.6-1.0 cm LVIDd: 4.10 3.9-5.3/4.2-5.9 cm LVIDd Index: 1.81 2.4-3.2/2.2-3.1 cm/m2 LVIDs: 2.46 2.0-3.6 cm LVPWd: 1.13 0.7-1.1 cm Ao Root: 3.10 2.1-3.5 cm LA Diam: 3.90 2.7-3.8/3.0-4.0 cm LAIDs Index: 1.72 1.5-2.3 cm/m2 LV Mass: 185.90 67-162/88-224 g LV Mass Index: 81.90 43-95/49-115 g/m2 LVOT Diam: 2.10 3.0+(-)1.3 cm Mitral Valve MV Pk E: 0.61 MV Decel Time: 166.00 E'Lateral: 15.90 E'Medial: 11.00 E/E' Med: 5.60 E/E' Lat: 3.90 PHT: 49.00 MVA PHT: 4.49 Decel Sharkey: 3.68 Aortic Valve AoV Pk Dennis: 1.13 AoV Mn Dennis: 0.92 AoV VTI: 0.26 AoV Pk Grad: 5.00 Aov Mn Grad: 4.00 LORETO Cont.VTI: 1.93 LVOT LVOT Pk Dennis: 0.78 LVOT Mn Dennis: 0.54 LVOT VTI: 0.14 LVOT Pk Grad: 2.00 LVOT Mn Grad: 1.00 LVOT Diam: 2.10 LVOT Area: 3.46 Diastolic Function MV Pk E: 0.61 E'Medial: 11.00 E/E' Med: 5.60 E' Laterial: 15.90 E/E' Lat: 3.90 Right Ventricle TAPSE (mm): 22.30 Tricuspid Valve TR Pk Dennis: 1.85 TR Pk Grad: 14.00 Great Vessels Aorta Ao Root-2D: 3.10 2.0-3.7 cm Ao Asc: 2.90 2.1-3.4 cm Pulmonary Valve PV Pk Dennis: 1.18 Peak PV Grad: 6.00 Updated in Other Vendor System with Status of Final Ciro Andrew MD electronically signed on 05/21/2024 11:38:49 AM with status of Final
--- NOTE | 2024-05-21 09:56 | PC.NURSE ---
pt medicated with second dose of cardizem
--- NOTE | 2024-05-21 10:00 | PC.NURSE ---
pt continues to be afib on monitor with occasional pvcs
--- NOTE | 2024-05-21 11:40 | P.CONCA_ITS ---
History of Present Illness History of Present Illness Date of Service: 05/21/24 Requesting physician: Gustavo Fuentes Chief complaint: Afib with RVR Narrative: [age] year gentleman presenting with AFib with RVR. He has been experiencing palpitations for few months. He said proximally in February he started having palpitations which will affect him at nighttime. He also started noticing more shortness of breath and he thought that he is getting asthma attacks. He was using his inhalers more frequently with some relief but would get out of breath in the next hour or 2. He has been experiencing some orthopnea. Also experienced some chest tightness off and on. With these symptoms he presented to [facility]. He was noticed to be in AFib with RVR. He was given diltiazem boluses and heart rate is better controlled. No significant family history in the past. He was using energy drinks till February but since February he has not been using red bull. Does not smoke or drink. No other drug abuse. [facility], [facility] Past Medical History Medical History COVID-19 Obese Asthma Social History Social History Smoked in Last 30 Days: No Use of substances other than those prescribed or required for medical reasons: No Advance Directives: No Advance Directives Information Provided: Yes Do you have a plan to hurt others: No Plan Meds Allergies Allergy/AdvReac Type Severity Reaction Status Date / Time No Known Allergies Allergy Verified 05/21/24 06:11 Physical Exam 2 Vital Signs: Vital Signs: Last Vital Signs Temp 97.9 F 05/21/24 09:57 Pulse 104 H 05/21/24 09:57 Resp 18 05/21/24 09:57 BP 121/91 H 05/21/24 09:57 Pulse Ox 99 05/21/24 09:57 O2 Del Method Room Air 05/21/24 08:16 BMI result Body Mass Index 38.8 GENERAL APPEARANCE: in no acute distress, pleasant. NECK: no carotid bruit, + jugular venous distention. SKIN: no suspicious lesions, warm and dry. HEART: no murmurs, irregular rate and rhythm. LUNGS: clear to auscultation bilaterally. ABDOMEN: soft, nontender. EXTREMITIES: no edema. PERIPHERAL PULSES: equal. NEUROLOGIC: No gross deficits, AAO X 3 Objective Labs and Meds 05/21/24 06:52 05/21/24 06:52 Lab results: Laboratory Results - last 24 hr 05/21/24 05/21/24 05/21/24 06:20 06:52 07:03 WBC 8.4 RBC 5.40 Hgb 14.6 Hct 44.6 MCV 82.6 MCH 27.0 MCHC 32.7 RDW 13.2 Plt Count 317 MPV 9.0 L Immature Gran % (Auto) 0.2 Neut % (Auto) 68.0 Lymph % (Auto) 25.1 [place] % (Auto) 6.0 Eos % (Auto) 0.5 Baso % (Auto) 0.2 Lymph # (Auto) 2.1 [place] # (Auto) 0.5 Eos # (Auto) 0.0 Baso # (Auto) 0.0 Abs Immat Gran (auto) 0.02 Absolute Neuts (auto) 5.7 Absolute Nucleated RBC 0.000 Nucleated RBC % (auto) 0.0 PT 11.7 INR 1.0 D-Dimer High Sensitivty < 150 VBG pH 7.35 VBG pCO2 49 VBG pO2 49 VBG HCO3 27 H VBG O2 Saturation 76.0 VBG Base Excess 1.5 Sodium 142 Potassium 4.2 Chloride 110 H Carbon Dioxide 27 Anion Gap 9 L BUN 18 H Creatinine 1.03 Estim Creat Clear Calc 110.6 Estimated GFR > 60 Random Glucose 116 H Calcium 9.4 Magnesium 2.1 Total Bilirubin 0.4 AST 26 ALT 38 Alkaline Phosphatase 50 Troponin I High Sens < 2.7 B-Natriuretic Peptide 75 Total Protein 7.9 Albumin 4.4 Lipase 18 TSH 3.30 Influenza Type A (PCR) NEGATIVE Influenza Type B (PCR) NEGATIVE RSV RNA Qual (PCR) NEGATIVE SARS-CoV-2 RNA (RT-PCR) NEGATIVE Assessment and Plan (1) Atrial fibrillation with rapid ventricular response: Status: Acute Plan AFib with RVR in the 44-year-old gentleman. He has shortness of breath with activities. Clinically appears to be mildly overloaded. Giving 20 mg of Lasix. Adding Toprol-XL 50 mg daily. Start Eliquis 5 mg twice a day. Echocardiography has been reviewed and he has normal LV function. We can try rate control 1st and if he does not improve then can consider MALCOM cardioversion. If heart rates better controlled in his starting to feel better then we can consider doing a cardioversion in 4-6 weeks without MALCOM. Thank you for allowing me to participate in the care of your patient. Please feel free to contact me if you have any questions. Procedures Date of Service Date of Service: 05/21/24
--- NOTE | 2024-05-21 12:19 | ECG_ITS ---
Test Reason : REPEAT EKG Blood Pressure : */* mmHG Vent. Rate : 71 BPM Atrial Rate : 71 BPM P-R Int : 116 ms QRS Dur : 68 ms QT Int : 396 ms P-R-T Axes : 44 5 11 degrees QTcB Int : 430 ms Normal sinus rhythm Normal ECG When compared with ECG of 21-May-2024 06:18, Sinus rhythm has replaced Atrial fibrillation Vent. rate has decreased by 70 bpm Referred By: Gustavo Fuentes Electronically Signed By: ERNA LEWIS MD
--- NOTE | 2024-05-21 12:21 | PC.NURSE ---
this nurse noticed the patient has returned to NSR, provider was notified, greenhouse instructor was walking into pt room and this nurse spoke with cardiology about medications ordered in which he stated to hold off on the medications and he would be talking with the ED provider about what he felt the pt needed. pt to have repeat ekg hr is in the 70s
--- NOTE | 2024-05-21 12:40 | PC.NURSE ---
called pharmacy for missing med
[2024-05-21] MEDS: Flecainide Acetate 50 MG TABLET PO (12:52)
[2024-05-21] MEDS: Metoprolol Tartrate 25 MG TABLET PO (12:52)
== END 2024-05-21 13:00 | disposition home or self-care (01) ==
PROVIDERS: Emergency Medicine Emergency Medical Services; Emergency Provider Emergency Medicine; PCP Internal Medicine
DX: I48.20 Chronic atrial fibrillation, unspecified (principal); R06.02 Shortness of breath; Z03.818 Encounter for observation for suspected exposure to other biological agents ruled out; J45.909 Unspecified asthma, uncomplicated
CPT/HCPCS: 0241U; 36415; 71046; 80053; 82803; 83690; 83735; 83880; 84443; 84484; 85025; 85379; 85610; 93005; 93306; 96361; 96374; 96376; 99285; J7120

== ENCOUNTER → 2024-05-21 06:30 | Outpatient (BNV) | payer SELFPAY | PROVIDERS: PCP Internal Medicine; Visit Provider Radiology Diagnostic Radiology | DX: R06.02 Shortness of breath (principal) | CPT/HCPCS: 71046 ==

== ENCOUNTER → 2024-05-21 06:58 | Outpatient (BNV) | payer SELFPAY | PROVIDERS: Emergency Provider Emergency Medicine; PCP Internal Medicine; Visit Provider Internal Medicine Cardiovascular Disease | DX: I48.91 Unspecified atrial fibrillation (principal) | CPT/HCPCS: 93010; 93306; 99285 ==

== ENCOUNTER 2024-05-23 03:10 | Emergency (ER) | payer SELFPAY ==
--- NOTE | 2024-05-23 | ECG_ITS ---
Test Reason : CHEST PAIN Blood Pressure : */* mmHG Vent. Rate : 77 BPM Atrial Rate : 77 BPM P-R Int : 124 ms QRS Dur : 76 ms QT Int : 386 ms P-R-T Axes : 54 7 15 degrees QTcB Int : 436 ms Normal sinus rhythm with sinus arrhythmia Nonspecific ST abnormality Abnormal ECG When compared with ECG of 21-May-2024 12:43, No significant change was found Referred By: Generic ED Physician Electronically Signed By: Ciro Andrew
--- NOTE | ~2024-05-23 | XR_ITS ---
CLINICAL HISTORY: cp sob 1 view chest x-ray Comparison: CR - XR CHEST 2V - 05/21/24 06:39 EST CR/SR - XR CHEST 2V - 04/03/24 14:06 EST Findings: No consolidation or effusion. Heart size is stable. No acute fracture. IMPRESSION: 1. No acute findings. This document has been electronically signed by: Zuleyma Martines MD on 05/23/2024 04:39:54
[2024-05-23 03:15] VITALS: BP 125/77; PULSE 86; RESP 18; TEMP 36.6; O2SAT 97; BMI 39.0
[2024-05-23 03:45] LABS: Basophils Percent Auto 0.3 % (0-2); Eosinophils Absolute Auto 0.1 X10*3/uL (0.0-0.4); Eosinophils Percent Auto 0.6 % (0-4); Hematocrit 41.1 % (42.0-52.0); Hemoglobin 13.8 g/dl (14.0-18.0); Imm Gran Abs Auto 0.03 X10*3/uL (0.00-0.03); Imm Gran Pct Auto 0.3 % (0.0-0.4); Lymphocytes Percent Auto 20.9 % (20-40); MANUAL DIFF FLAG NO; Mean Corpuscular HGB Conc 33.6 g/dl (31.0-36.0); Mean Corpuscular Hemoglobin 27.7 pg (27.0-33.0); Mean Corpuscular Volume 82.4 fL (80.0-98.0); Mean Platelet Volume 9.1 fL (9.4-12.4); Monocytes Absolute Auto 0.6 X10*3/uL (0.1-1.2); Monocytes Percent Auto 6.3 % (2-11); Neutrophils Absolute Auto 6.8 x10*3/uL (2.0-8.3); Neutrophils Percent Auto 71.6 % (45-73); Platelet Count 309 X10*3/uL (160-400); Red Blood Count 4.99 X10*6/uL (4.60-5.80); Red Cell Distribution Width 13.2 % (11.0-16.0); White Blood Count 9.5 X10*3/uL (4.8-10.8)
[2024-05-23 03:46] LABS: Venous Blood Gas Refer to POC result
[2024-05-23 03:49] LABS: VBG Base Excess 4.9 mmol/L; VBG HCO3 31 mmol/L (22-26); VBG pCO2 52 mmHg; VBG pH 7.37 (7.32-7.43); VBG pO2 37 mmHg
[2024-05-23 04:06] LABS: Alanine Aminotransferase 32 U/L (0-40); Albumin Level 4.1 g/dL (3.5-5.0); Alkaline Phosphatase 50 U/L (39-117); Anion Gap 12 (12-20); Aspartate Amino Transferase 40 U/L (5-37); Bilirubin Total 0.2 mg/dL (0.0-1.0); Blood Urea Nitrogen 20 mg/dL (9-16); Calcium 8.9 mg/dL (8.4-10.2); Carbon Dioxide 26 mmol/L (22-29); Chloride 107 mmol/L (96-108); Creatinine Clr Calc Pharmacy 113.2; Estimated Glomerular Filt Rate > 60; Glucose Random 135 mg/dL (60-115); Potassium 4.1 mmol/L (3.3-5.1); Sodium 141 mmol/L (135-145); Total Protein 7.7 g/dL (6.5-8.0); Troponin-I High Sensitivity < 2.7 ng/L (<3.5-35.0)
--- NOTE | 2024-05-23 04:14 | ED_ITS ---
HPI - Chest Pain General Chief Complaint: Chest Pain Stated Complaint: diff breathing/SOB Time Seen by Provider: 05/23/24 03:58 Source: patient Mode of arrival: ambulatory Limitations: no limitations History of Present Illness ED Provider: Dr. Kim Monaco HPI narrative: Patient comes to the emergency room complaining of chest pressure, difficulty breathing when lying down. Patient states that he has history of asthma but has not been wheezing. Patient states that 2 days ago he was diagnosed with atrial fibrillation for the 1st time, patient is on flecainide and metoprolol. Patient denies chest pain or palpitations. Related Data Previous Rx's ?Medication ?Instructions ?Recorded albuterol sulfate 90 mcg/actuation 2 puff inhalation Q4-6H PRN 06/01/21 aerosol inhaler shortness of breath or wheezing #8.5 grams benzonatate 200 mg capsule 200 mg PO TID 5 days #15 caps 06/01/21 cyclobenzaprine 5 mg tablet 5 mg PO TID PRN muscle spasm 3 06/01/21 days #9 tabs dexamethasone 6 mg tablet 6 mg PO DAILY 3 days #3 tabs 06/01/21 amoxicillin 500 mg capsule 1,000 mg (2 x 500 mg) PO TID 5 04/03/24 days #30 caps flecainide 50 mg tablet 50 mg PO BID 30 days #60 tabs 05/21/24 metoprolol succinate 25 mg 25 mg PO DAILY #30 tabs 05/21/24 tablet,extended release 24 hr ibuprofen 600 mg tablet 600 mg PO TID PRN fever or pain 05/23/24 #20 tabs Allergies Allergy/AdvReac Type Severity Reaction Status Date / Time No Known Allergies Allergy Verified 05/23/24 03:19 Review of Systems 2 Review of Systems: Constitutional : No Weight loss, No Fever, No Chills, No Night Sweats, No Fatigue, No Malaise ENT/Mouth : No Hearing loss, No Ear Pain, No Nasal Congestion, No Sinus Pain, No Hoarseness, No sore throat, No Rhinorrhea, No Swallowing Difficulty Eyes: No Eye Pain, No Swelling, No Redness, No Foreign Body, No Discharge, No Vision Changes Cardiovascular : No Chest Pain, complaining of chest tightness, No SOB, No Dyspnea on Exertion, No Orthopnea, No Edema, No Palpitations Respiratory : No Cough, No Sputum, No Wheezing, No Smoke Exposure, No Dyspnea Gastrointestinal : No Nausea, No Vomiting, No Diarrhea, No Constipation, No abdominal Pain, No Hematochezia, No Melena Genitourinary : no irregular bleeding, No Dysuria, No Urinary Frequency, No Hematuria, No Urinary Incontinence, No Urgency, No Flank Pain, No Urinary Flow Changes, No Hesitancy Musculoskeletal : No joint pain, No Myalgias, No Joint Swelling Skin : No Skin Lesions, No rash Neuro : No Weakness, No Numbness, No Paresthesias, No Loss of Consciousness, No Dizziness, No Headache Psych : No Anxiety/Panic, No Depression, No SI/HI/AH/VH, No Social Issues, Heme/Lymph: No Bruising, No Bleeding,No Lymphadenopathy Endocrine : No Polyuria, No Polydipsia, No Temperature Intolerance [facility] Past Medical History Medical History (Updated 05/23/24 @ 05:42 by Kim Monaco MD) Atrial fibrillation COVID-19 Obese Asthma Social History Social History Smoked in Last 30 Days: No Use of substances other than those prescribed or required for medical reasons: No Advance Directives: No Advance Directives Information Provided: Yes Do you have a plan to hurt others: No Plan Physical Exam 2 Vital Signs: Vital Signs: Last Vital Signs Temp 97.9 F 05/23/24 03:15 Pulse 86 05/23/24 03:15 Resp 18 05/23/24 03:15 BP 125/77 05/23/24 03:15 Pulse Ox 97 05/23/24 03:15 O2 Del Method Room Air 05/23/24 03:15 BMI result Body Mass Index 39.0 Const: Other: Appearance: Alert. Oriented X3. No acute distress. Well-appearing Eyes: Pupils equal, round and reactive to light. ENT: Pharynx normal. Neck: Normal inspection. Neck supple. No lymph nodes noted. No crepitus CVS: Normal heart rate and rhythm. Pulses normal. Normal S1 and S2 Respiratory: No respiratory distress. Breath sounds normal. No Wheezing. No rales Abdomen: Soft and nontender. No rigidity. No distention. Skin: Skin warm and dry. Normal skin color. Normal skin turgor. Extremities: No lower extremity edema. No Lacerations. No Rash Neuro: Oriented X 3. No motor deficit. No sensory deficit. Moving all extremities. No slurred speech. CN 2 through 12 grossly intact Psych: calm, cooperative, normal affect Course Course Course Narrative: All of patient's labs and imaging pending. Depending on patient's labs, we may have to scan the patient's chest, patient agrees with plan. Fall, no chest pain, no chest pressure at this time. Patient states it is only present when he lays down. Medical Decision Making Medical Decision Making [facility] Narrative: My interpretation of EKG: Normal sinus rhythm, heart rate 77, no ST segment depression or elevation, no T-wave inversion, QTC 77 Patient's vitals normal, oxygen saturation 97% on room air, no oxygen desaturations with ambulation around his room. My interpretation of labs, normal hematology and chemistry, normal troponin, normal BNP, D-dimer negative. Chest x-ray does not show any acute abnormality. Patient states that when he walks his symptoms resolved. Patient likely having pleurisy. Differential Diagnosis Differential Diagnoses: The differential diagnosis associated with the presentation includes (Asthma, viral illness, pleurisy, ACS, CHF) Admission/Observation Consideration of admission/observation: Escalation of care including admission/observation considered (Patient has new diagnosis and presentation, observation was considered) Lab Data [facility] Lab Attestation statement: I reviewed the patient's lab results. 05/23/24 03:39 05/23/24 03:39 Labs: Lab Results 05/23/24 05/23/24 05/23/24 Range/Units 03:39 03:43 04:10 WBC 9.5 (4.8-10.8) X10*3/uL RBC 4.99 (4.60-5.80) X10*6/uL Hgb 13.8 L (14.0-18.0) g/dl Hct 41.1 L (42.0-52.0) % MCV 82.4 (80.0-98.0) fL MCH 27.7 (27.0-33.0) pg MCHC 33.6 (31.0-36.0) g/dl RDW 13.2 (11.0-16.0) % Plt Count 309 (160-400) X10*3/uL MPV 9.1 L (9.4-12.4) fL Immature Gran % (Auto) 0.3 (0.0-0.4) % Neut % (Auto) 71.6 (45-73) % Lymph % (Auto) 20.9 (20-40) % [place] % (Auto) 6.3 (2-11) % Eos % (Auto) 0.6 (0-4) % Baso % (Auto) 0.3 (0-2) % Lymph # (Auto) 2.0 (1.2-4.9) X10*3/uL [place] # (Auto) 0.6 (0.1-1.2) X10*3/uL Eos # (Auto) 0.1 (0.0-0.4) X10*3/uL Baso # (Auto) 0.0 (0.0-0.2) X10*3/uL Abs Immat Gran (auto) 0.03 (0.00-0.03) X10*3/uL Absolute Neuts (auto) 6.8 (2.0-8.3) x10*3/uL Absolute Nucleated RBC 0.000 (0.0-0.012) X10*3/uL Nucleated RBC % (auto) 0.0 (0.0-0.2) /100WBC PT 10.7 L (10.9-12.4) SEC INR 0.9 (0.9-1.1) D-Dimer High Sensitivty < 150 NG/ML VBG pH 7.37 (7.32-7.43) VBG pCO2 52 mmHg VBG pO2 37 mmHg VBG HCO3 31 H (22-26) mmol/L VBG O2 Saturation 54.0 % VBG Base Excess 4.9 mmol/L Sodium 141 (135-145) mmol/L Potassium 4.1 (3.3-5.1) mmol/L Chloride 107 (96-108) mmol/L Carbon Dioxide 26 (22-29) mmol/L Anion Gap 12 (12-20) BUN 20 H (9-16) mg/dL Creatinine 1.01 (0.5-1.4) mg/dL Estim Creat Clear Calc 113.2 Estimated GFR > 60 Random Glucose 135 H (60-115) mg/dL Calcium 8.9 (8.4-10.2) mg/dL Total Bilirubin 0.2 (0.0-1.0) mg/dL AST 40 H (5-37) U/L ALT 32 (0-40) U/L Alkaline Phosphatase 50 (39-117) U/L Troponin I High Sens < 2.7 (<3.5-35.0) ng/L B-Natriuretic Peptide 38 (<100) pg/mL Total Protein 7.7 (6.5-8.0) g/dL Albumin 4.1 (3.5-5.0) g/dL Radiology Impression Discussion of test interpretation with radiology: I have reviewed the radiologist's reading. Radiologist Impression: 1 view chest x-ray Comparison: CR - XR CHEST 2V - 05/21/24 06:39 EST CR/SR - XR CHEST 2V - 04/03/24 14:06 EST Findings: No consolidation or effusion. Heart size is stable. No acute fracture. IMPRESSION: 1. No acute findings. Critical Care Time Critical Care Time Critical Care Time: Yes Total Critical Care Time: 35 Attestation: I have personally provided critical care time. Time includes review of lab data, radiology results, discussion with consultants, and monitoring for potential decompensation. Intervention performed as documented. Discharge Plan Discharge Clinical Impression: Atypical chest pain, Pleurisy Patient Disposition: Home, Self-Care Instructions: Chest Pain (DC), Pleurisy (ED) Additional Instructions: Please follow-up with your primary care physician tomorrow. If you have any worsening or new symptoms, please return to the emergency room or call 911 Prescriptions: New ibuprofen 600 mg tablet 600 mg PO TID PRN (Reason: fever or pain) Qty: 20 0RF No Action benzonatate 200 mg capsule 200 mg PO TID 5 Days Qty: 15 0RF dexamethasone 6 mg tablet 6 mg PO DAILY 3 Days Qty: 3 0RF albuterol sulfate 90 mcg/actuation HFA aerosol inhaler 2 puff inhalation Q4-6H PRN (Reason: shortness of breath or wheezing) Qty: 8.5 0RF cyclobenzaprine 5 mg tablet 5 mg PO TID PRN (Reason: muscle spasm) 3 Days Qty: 9 0RF amoxicillin 500 mg capsule 1,000 mg PO TID 5 Days Qty: 30 0RF flecainide 50 mg tablet 50 mg PO BID 30 Days Qty: 60 0RF metoprolol succinate 25 mg tablet extended release 24 hr 25 mg PO DAILY Qty: 30 0RF Stand Alone Forms: Work/School Release Print Language: Malay
[2024-05-23 04:23] LABS: INTERNATIONAL NORM RATIO 0.9 (0.9-1.1); Prothrombin Time 10.7 SEC (10.9-12.4)
[2024-05-23 04:28] LABS: B Type Natriuretic Peptide 38 pg/mL (<100)
[2024-05-23 04:29] LABS: D Dimer High Sensitivity < 150 NG/ML
[2024-05-23 06:09] VITALS: BP 119/86; PULSE 74; RESP 15; TEMP 36.6; O2SAT 97
[2024-05-23 06:10] VITALS: BP 119/86; PULSE 74; RESP 15; TEMP 37; O2SAT 97
== END 2024-05-23 06:11 | disposition home or self-care (01) ==
PROVIDERS: Emergency Provider Emergency Medicine; PCP Internal Medicine
DX: R07.89 Other chest pain (principal); R06.02 Shortness of breath; R09.1 Pleurisy; I48.91 Unspecified atrial fibrillation; Z79.899 Other long term (current) drug therapy
CPT/HCPCS: 36415; 71045; 80053; 82803; 83880; 84484; 85025; 85379; 85610; 93005; 99284; 99285

== ENCOUNTER → 2024-05-23 03:29 | Outpatient (BNV) | payer SELFPAY | PROVIDERS: Emergency Provider Emergency Medicine; PCP Internal Medicine; Visit Provider Internal Medicine Cardiovascular Disease | DX: R94.31 Abnormal electrocardiogram [ECG] [EKG] (principal) | CPT/HCPCS: 93010 ==

== ENCOUNTER → 2024-05-23 03:55 | Outpatient (BNV) | payer SELFPAY | PROVIDERS: Emergency Provider Emergency Medicine; PCP Internal Medicine; Visit Provider Radiology Diagnostic Radiology | DX: R07.9 Chest pain, unspecified (principal); R06.02 Shortness of breath | CPT/HCPCS: 71045 ==

== ENCOUNTER 2024-05-30 00:19 | Emergency (ER) | payer SELFPAY ==
--- NOTE | ~2024-05-30 | XR_ITS ---
CLINICAL HISTORY: chest pain afib 1 view chest x-ray Comparison: CR - XR CHEST 1V - 05/23/24 03:49 EST Findings: No consolidation or effusion. Normal size heart. No acute fracture. IMPRESSION: 1. No acute findings. This document has been electronically signed by: Vince Baugh MD on 05/30/2024 00:52:43
--- NOTE | 2024-05-30 00:21 | ECG_ITS ---
Test Reason : afib Blood Pressure : */* mmHG Vent. Rate : 125 BPM Atrial Rate : * BPM P-R Int : * ms QRS Dur : 70 ms QT Int : 310 ms P-R-T Axes : * -5 26 degrees QTcB Int : 447 ms Atrial fibrillation with rapid ventricular response Abnormal ECG When compared with ECG of 23-May-2024 03:29, Atrial fibrillation has replaced Sinus rhythm Vent. rate has increased by 48 bpm Referred By: Generic ED Physician Electronically Signed By: ERNA LEWIS MD
[2024-05-30 00:28] VITALS: BP 136/93; PULSE 98; RESP 18; TEMP 36.8; O2SAT 98; BMI 38.8
[2024-05-30 00:54] LABS: MANUAL DIFF FLAG NO
[2024-05-30 00:55] LABS: Basophils Percent Auto 0.2 % (0-2); Eosinophils Absolute Auto 0.1 X10*3/uL (0.0-0.4); Eosinophils Percent Auto 1.1 % (0-4); Hematocrit 41.1 % (42.0-52.0); Hemoglobin 13.8 g/dl (14.0-18.0); Imm Gran Abs Auto 0.03 X10*3/uL (0.00-0.03); Imm Gran Pct Auto 0.3 % (0.0-0.4); Lymphocytes Absolute Auto 2.7 X10*3/uL (1.2-4.9); Lymphocytes Percent Auto 27.3 % (20-40); Mean Corpuscular HGB Conc 33.6 g/dl (31.0-36.0); Mean Corpuscular Hemoglobin 27.5 pg (27.0-33.0); Mean Corpuscular Volume 81.9 fL (80.0-98.0); Mean Platelet Volume 9.1 fL (9.4-12.4); Monocytes Absolute Auto 0.7 X10*3/uL (0.1-1.2); Monocytes Percent Auto 7.5 % (2-11); Neutrophils Absolute Auto 6.3 x10*3/uL (2.0-8.3); Neutrophils Percent Auto 63.6 % (45-73); Platelet Count 288 X10*3/uL (160-400); Red Blood Count 5.02 X10*6/uL (4.60-5.80); Red Cell Distribution Width 13.1 % (11.0-16.0); White Blood Count 9.8 X10*3/uL (4.8-10.8)
--- NOTE | 2024-05-30 01:06 | ED.ARRPALP ---
HPI - Arrhythmia/Palpitations General Chief Complaint: Arrhythmia/Palpitations Stated Complaint: afib Time Seen by Provider: 05/30/24 00:40 Source: patient Mode of arrival: ambulatory Limitations: no limitations History of Present Illness ED Provider: Dr. Kim Monaco HPI narrative: Patient comes to the emergency room complaining of palpitations. Patient states that he has been having URI symptoms for about a week including cough. Patient states that he has been taking [id number] medication, last dose couple of days ago, cough syrup. Patient states that today he has been having intermittent palpitations. According to the patient, the palpitations started after drinking an energy drink earlier today. However, over the last few hours it has been constant. Patient states that he has no chest pain. Patient states that it feels that he has something crawling on the inside of his chest, and then he knows that he is in atrial fibrillation. Patient states he gives compliant with his metoprolol and flecainide. Related Data Previous Rx's ?Medication ?Instructions ?Recorded albuterol sulfate 90 mcg/actuation 2 puff inhalation Q4-6H PRN 06/01/21 aerosol inhaler shortness of breath or wheezing #8.5 grams benzonatate 200 mg capsule 200 mg PO TID 5 days #15 caps 06/01/21 cyclobenzaprine 5 mg tablet 5 mg PO TID PRN muscle spasm 3 06/01/21 days #9 tabs dexamethasone 6 mg tablet 6 mg PO DAILY 3 days #3 tabs 06/01/21 amoxicillin 500 mg capsule 1,000 mg (2 x 500 mg) PO TID 5 04/03/24 days #30 caps flecainide 50 mg tablet 50 mg PO BID 30 days #60 tabs 05/21/24 metoprolol succinate 25 mg 25 mg PO DAILY #30 tabs 05/21/24 tablet,extended release 24 hr ibuprofen 600 mg tablet 600 mg PO TID PRN fever or pain 05/23/24 #20 tabs metoprolol succinate 50 mg 50 mg PO DAILY #30 tabs 05/30/24 tablet,extended release 24 hr Allergies Allergy/AdvReac Type Severity Reaction Status Date / Time No Known Allergies Allergy Verified 05/30/24 00:34 Review of Systems Review of Systems: Constitutional : No Weight loss, No Fever, No Chills, No Night Sweats, No Fatigue, No Malaise ENT/Mouth : No Hearing loss, No Ear Pain, No Nasal Congestion, No Sinus Pain, No Hoarseness, No sore throat, No Rhinorrhea, No Swallowing Difficulty Eyes: No Eye Pain, No Swelling, No Redness, No Foreign Body, No Discharge, No Vision Changes Cardiovascular : Patient had chest pain earlier today which self-resolved,, No SOB, No Dyspnea on Exertion, No Orthopnea, No Edema, complaining of Palpitations Respiratory : No Cough, No Sputum, No Wheezing, No Smoke Exposure, No Dyspnea Gastrointestinal : No Nausea, No Vomiting, No Diarrhea, No Constipation, No abdominal Pain, No Hematochezia, No Melena Genitourinary : no irregular bleeding, No Dysuria, No Urinary Frequency, No Hematuria, No Urinary Incontinence, No Urgency, No Flank Pain, No Urinary Flow Changes, No Hesitancy Musculoskeletal : No joint pain, No Myalgias, No Joint Swelling Skin : No Skin Lesions, No rash Neuro : No Weakness, No Numbness, No Paresthesias, No Loss of Consciousness, No Dizziness, No Headache Psych : No Anxiety/Panic, No Depression, No SI/HI/AH/VH, No Social Issues, Heme/Lymph: No Bruising, No Bleeding,No Lymphadenopathy Endocrine : No Polyuria, No Polydipsia, No Temperature Intolerance PMFSH Past Medical History Medical History Atrial fibrillation COVID-19 Obese Asthma Social History Social History Smoked in Last 30 Days: No Use of substances other than those prescribed or required for medical reasons: Yes Substance Use Type: Caffiene Do you have a plan to hurt others: No Plan Physical Exam Vital Signs: Vital Signs: Last Vital Signs Temp 98.3 F 05/30/24 00:28 Pulse 101 H 05/30/24 01:55 Resp 17 05/30/24 01:11 BP 109/69 05/30/24 01:55 Pulse Ox 97 05/30/24 01:11 O2 Del Method Room Air 05/30/24 01:11 BMI result Body Mass Index 38.8 Const: Other: Appearance: Alert. Oriented X3. No acute distress. Eyes: Pupils equal, round and reactive to light. ENT: Pharynx normal. Neck: Normal inspection. Neck supple. No lymph nodes noted. No crepitus CVS: Heart rate irregularly irregular, heart rate in the 140s. Pulses normal. Normal S1 and S2 Respiratory: No respiratory distress. Breath sounds normal. No Wheezing. No rales Abdomen: Soft and nontender. No rigidity. No distention. Skin: Skin warm and dry. Normal skin color. Normal skin turgor. Extremities: No lower extremity edema. No Lacerations. No Rash Neuro: Oriented X 3. No motor deficit. No sensory deficit. Moving all extremities. No slurred speech. CN 2 through 12 grossly intact Psych: calm, cooperative, normal affect Course Course Course Narrative: Patient's blood pressure 136/93, however heart rate is in the 140s. Patient was given 1 dose of IV metoprolol 5 mg Of patient's labs pending Medications Administered Discontinued Medications Generic Name Dose Route Start Last Admin Trade Name Freq PRN Reason Stop Dose Admin Metoprolol Tartrate 5 mg 05/30/24 01:04 05/30/24 01:12 Metoprolol Tartrate 5 Mg/5 Ml Vial IVPUSH 05/30/24 01:05 5 mg ONCE ONE Administration Protocol Medical Decision Making Medical Decision Making [facility] Narrative: My interpretation of labs, normal hematology and chemistry, normal BNP. First EKG: Atrial fibrillation, heart rate 125, no ST segment depression or elevation, no T-wave inversion, QTC 447. On physical exam, patient's heart rate was in the 140s to 150s. Patient received IV metoprolol 5 mg. Patient converted back to sinus rhythm, heart rate in the 80s. Patient states that he knows that he is supposed to take flecainide twice a day. However, patient states that when he takes flecainide in the evening, he gets profuse sweating and does not feel well. Therefore, he has been taking flecainide in the morning after taking his metoprolol 25 mg. Patient requesting that we do not increase flecainide or make him take it twice a day since he is not tolerating the medication well. However, patient agreeable to take metoprolol 50 mg in the morning and continue his current dose of flecainide in the morning. Patient's blood pressure stable Differential Diagnosis Differential Diagnoses: The differential diagnosis associated with the presentation includes (Atrial fibrillation, CHF, SVT) Admission/Observation Consideration of admission/observation: Escalation of care including admission/observation considered (Given patient's symptoms and EKG, observation was considered) Lab Data [facility] Lab Attestation statement: I reviewed the patient's lab results. 05/30/24 00:49 05/30/24 00:49 Labs: Lab Results 05/30/24 05/30/24 Range/Units 00:49 01:06 WBC 9.8 (4.8-10.8) X10*3/uL RBC 5.02 (4.60-5.80) X10*6/uL Hgb 13.8 L (14.0-18.0) g/dl Hct 41.1 L (42.0-52.0) % MCV 81.9 (80.0-98.0) fL MCH 27.5 (27.0-33.0) pg MCHC 33.6 (31.0-36.0) g/dl RDW 13.1 (11.0-16.0) % Plt Count 288 (160-400) X10*3/uL MPV 9.1 L (9.4-12.4) fL Immature Gran % (Auto) 0.3 (0.0-0.4) % Neut % (Auto) 63.6 (45-73) % Lymph % (Auto) 27.3 (20-40) % [place] % (Auto) 7.5 (2-11) % Eos % (Auto) 1.1 (0-4) % Baso % (Auto) 0.2 (0-2) % Lymph # (Auto) 2.7 (1.2-4.9) X10*3/uL [place] # (Auto) 0.7 (0.1-1.2) X10*3/uL Eos # (Auto) 0.1 (0.0-0.4) X10*3/uL Baso # (Auto) 0.0 (0.0-0.2) X10*3/uL Abs Immat Gran (auto) 0.03 (0.00-0.03) X10*3/uL Absolute Neuts (auto) 6.3 (2.0-8.3) x10*3/uL Absolute Nucleated RBC 0.000 (0.0-0.012) X10*3/uL Nucleated RBC % (auto) 0.0 (0.0-0.2) /100WBC Sodium 140 (135-145) mmol/L Potassium 3.9 (3.3-5.1) mmol/L Chloride 107 (96-108) mmol/L Carbon Dioxide 24 (22-29) mmol/L Anion Gap 13 (12-20) BUN 23 H (9-16) mg/dL Creatinine 1.00 (0.5-1.4) mg/dL Estim Creat Clear Calc 114.0 Estimated GFR > 60 Random Glucose 111 (60-115) mg/dL Calcium 9.2 (8.4-10.2) mg/dL Total Bilirubin 0.2 (0.0-1.0) mg/dL AST 24 (5-37) U/L ALT 22 (0-40) U/L Alkaline Phosphatase 47 (39-117) U/L Troponin I High Sens < 2.7 (<3.5-35.0) ng/L B-Natriuretic Peptide 36 (<100) pg/mL Total Protein 7.5 (6.5-8.0) g/dL Albumin 4.1 (3.5-5.0) g/dL Influenza Type A (PCR) NEGATIVE (Negative) Influenza Type B (PCR) NEGATIVE (Negative) RSV RNA Qual (PCR) NEGATIVE (Negative) SARS-CoV-2 RNA (RT-PCR) NEGATIVE (Negative) Independent Interpretation I performed an independent interpretation of an: EKG and Plain X-Ray Radiology Impression Discussion of test interpretation with radiology: I have reviewed the radiologist's reading. Radiologist Impression: Findings: No consolidation or effusion. Normal size heart. No acute fracture. IMPRESSION: 1. No acute findings. Discharge Plan Discharge Clinical Impression: Atrial fibrillation with RVR Patient Disposition: Home, Self-Care Instructions: A-fib (Atrial Fibrillation) (DC) Additional Instructions: Continue taking your current dose of flecainide, increase metoprolol to 50 mg once a day Prescriptions: New metoprolol succinate 50 mg tablet extended release 24 hr 50 mg PO DAILY Qty: 30 2RF No Action benzonatate 200 mg capsule 200 mg PO TID 5 Days Qty: 15 0RF dexamethasone 6 mg tablet 6 mg PO DAILY 3 Days Qty: 3 0RF albuterol sulfate 90 mcg/actuation HFA aerosol inhaler 2 puff inhalation Q4-6H PRN (Reason: shortness of breath or wheezing) Qty: 8.5 0RF cyclobenzaprine 5 mg tablet 5 mg PO TID PRN (Reason: muscle spasm) 3 Days Qty: 9 0RF ibuprofen 600 mg tablet 600 mg PO TID PRN (Reason: fever or pain) Qty: 20 0RF amoxicillin 500 mg capsule 1,000 mg PO TID 5 Days Qty: 30 0RF flecainide 50 mg tablet 50 mg PO BID 30 Days Qty: 60 0RF metoprolol succinate 25 mg tablet extended release 24 hr 25 mg PO DAILY Qty: 30 0RF Print Language: Nepali
[2024-05-30 01:11] VITALS: BP 117/77; PULSE 130; RESP 17; O2SAT 97
[2024-05-30] MEDS: Metoprolol Tartrate 5 MG/5 ML VIAL IVPUSH (01:12)
[2024-05-30 01:15] VITALS: PULSE 102
[2024-05-30 01:16] LABS: B Type Natriuretic Peptide 36 pg/mL (<100)
[2024-05-30 01:17] LABS: Troponin-I High Sensitivity < 2.7 ng/L (<3.5-35.0)
[2024-05-30 01:18] VITALS: BP 106/72; PULSE 102
[2024-05-30 01:25] LABS: Alanine Aminotransferase 22 U/L (0-40); Albumin Level 4.1 g/dL (3.5-5.0); Alkaline Phosphatase 47 U/L (39-117); Anion Gap 13 (12-20); Aspartate Amino Transferase 24 U/L (5-37); Bilirubin Total 0.2 mg/dL (0.0-1.0); Blood Urea Nitrogen 23 mg/dL (9-16); Calcium 9.2 mg/dL (8.4-10.2); Carbon Dioxide 24 mmol/L (22-29); Chloride 107 mmol/L (96-108); Estimated Glomerular Filt Rate > 60; Glucose Random 111 mg/dL (60-115); Potassium 3.9 mmol/L (3.3-5.1); Sodium 140 mmol/L (135-145); Total Protein 7.5 g/dL (6.5-8.0)
[2024-05-30 01:51] LABS: Influenza A PCR NEGATIVE (Negative); Influenza B PCR NEGATIVE (Negative); Resp Syncy Virus RNA Qual PCR NEGATIVE (Negative); SARS COV2 PCR INHOUSE NEGATIVE (Negative)
[2024-05-30 01:55] VITALS: BP 109/69; PULSE 101
[2024-05-30 03:48] VITALS: BP 101/54; PULSE 68; RESP 18; TEMP 36.8; O2SAT 97
== END 2024-05-30 03:57 | disposition home or self-care (01) ==
PROVIDERS: Emergency Provider Emergency Medicine; PCP Internal Medicine
DX: I49.9 Cardiac arrhythmia, unspecified (principal); R00.2 Palpitations; I48.20 Chronic atrial fibrillation, unspecified; R06.02 Shortness of breath; Z03.818 Encounter for observation for suspected exposure to other biological agents ruled out; Z79.899 Other long term (current) drug therapy
CPT/HCPCS: 0241U; 36415; 71045; 80053; 83880; 84484; 85025; 93005; 96374; 99284; 99285

== ENCOUNTER → 2024-05-30 00:36 | Outpatient (BNV) | payer SELFPAY | PROVIDERS: Emergency Provider Emergency Medicine; PCP Internal Medicine; Visit Provider Radiology Diagnostic Radiology | DX: I48.91 Unspecified atrial fibrillation (principal) | CPT/HCPCS: 71045 ==

== ENCOUNTER 2024-06-08 15:16 | Emergency (ER) | payer OTHER, SELFPAY ==
--- NOTE | ~2024-06-08 | XR_ITS ---
EXAMINATION: XR CHEST CLINICAL INFORMATION: cough COMPARISON: Chest x-ray 05/30/2024 TECHNIQUE: 2 views of the chest were obtained. FINDINGS: No significant abnormality is noted involving the heart, lungs, mediastinum, bony thorax or soft tissues. XR/XR chest 2V IMPRESSION: Unremarkable chest examination. Electronically signed by: Bruno Menendez MD 06/08/2024 04:59 PM [facility]
[2024-06-08 16:32] VITALS: BP 121/76; PULSE 70; RESP 16; TEMP 36.8; O2SAT 98; BMI 38.6
--- NOTE | 2024-06-08 16:38 | ED.ABDPAIN ---
HPI - Abdominal Pain General Chief Complaint: Abdominal Pain Stated Complaint: Abd muscle spasm Time Seen by Provider: 06/08/24 22:43 Source: patient Mode of arrival: ambulatory Limitations: no limitations History of Present Illness ED Provider: Dr. Kim Monaco HPI narrative: Patient comes to emergency room complaining of 2 days of a combination of anxiety, epigastric pressure, restlessness. Patient states that sometimes he feels that his AFib is going to act up, starts feeling anxious, starts sweating, has a small panic attack, unsure if he has chest pain or shortness of breath then self resolves. Patient states that in the past he used to take Klonopin, stopped taking it in 2019. At this time, patient states that he feels a bit uneasy, has no chest pain or shortness of breath. Related Data Previous Rx's ?Medication ?Instructions ?Recorded albuterol sulfate 90 mcg/actuation 2 puff inhalation Q4-6H PRN 06/01/21 aerosol inhaler shortness of breath or wheezing #8.5 grams benzonatate 200 mg capsule 200 mg PO TID 5 days #15 caps 06/01/21 cyclobenzaprine 5 mg tablet 5 mg PO TID PRN muscle spasm 3 06/01/21 days #9 tabs dexamethasone 6 mg tablet 6 mg PO DAILY 3 days #3 tabs 06/01/21 amoxicillin 500 mg capsule 1,000 mg (2 x 500 mg) PO TID 5 04/03/24 days #30 caps flecainide 50 mg tablet 50 mg PO BID 30 days #60 tabs 05/21/24 metoprolol succinate 25 mg 25 mg PO DAILY #30 tabs 05/21/24 tablet,extended release 24 hr ibuprofen 600 mg tablet 600 mg PO TID PRN fever or pain 05/23/24 #20 tabs metoprolol succinate 50 mg 50 mg PO DAILY #30 tabs 05/30/24 tablet,extended release 24 hr lorazepam 0.5 mg tablet (Ativan) 0.5 mg PO BID PRN anxiety #10 tabs 06/08/24 Allergies Allergy/AdvReac Type Severity Reaction Status Date / Time No Known Allergies Allergy Verified 06/08/24 16:35 Review of Systems Review of Systems Constitutional : No Weight loss, No Fever, No Chills, No Night Sweats, No Fatigue, No Malaise ENT/Mouth : No Hearing loss, No Ear Pain, No Nasal Congestion, No Sinus Pain, No Hoarseness, No sore throat, No Rhinorrhea, No Swallowing Difficulty Eyes: No Eye Pain, No Swelling, No Redness, No Foreign Body, No Discharge, No Vision Changes Cardiovascular : No Chest Pain, no dyspnea on exertion, no orthopnea, intermittent palpitations Respiratory : No Cough, No Sputum, No Wheezing, No Smoke Exposure, No Dyspnea Gastrointestinal : No Nausea, No Vomiting, No Diarrhea, No Constipation, No abdominal Pain, No Hematochezia, No Melena Genitourinary : no irregular bleeding, No Dysuria, No Urinary Frequency, No Hematuria, No Urinary Incontinence, No Urgency, No Flank Pain, No Urinary Flow Changes, No Hesitancy Musculoskeletal : No joint pain, No Myalgias, No Joint Swelling Skin : No Skin Lesions, No rash Neuro : No Weakness, No Numbness, No Paresthesias, No Loss of Consciousness, No Dizziness, No Headache Psych : Complaining of intermittent anxiety and small panic attacks,, No Depression, No SI/HI/AH/VH, No Social Issues, Heme/Lymph: No Bruising, No Bleeding,No Lymphadenopathy Endocrine : No Polyuria, No Polydipsia, No Temperature Intolerance [facility] Past Medical History Medical History (Updated 06/08/24 @ 23:35 by Kim Monaco MD) Anxiety Atrial fibrillation COVID-19 Obese Asthma Social History Social History Smoked in Last 30 Days: No Use of substances other than those prescribed or required for medical reasons: No Substance Use Type: Caffiene Advance Directives: No Advance Directives Information Provided: Yes Physical Exam ED Vital Signs: Vital Signs - 24 hr 06/08/24 16:32 06/08/24 20:43 06/08/24 22:51 Temperature 98.2 F 97.3 F 97.6 F Pulse Rate 70 65 70 Respiratory Rate 16 18 19 Blood Pressure 121/76 104/62 125/78 Pulse Oximetry 98 97 97 Oxygen Delivery Method Room Air Room Air Room Air BMI result Body Mass Index 38.6 Const Other: Appearance: Alert. Oriented X3. No acute distress. Eyes: Pupils equal, round and reactive to light. ENT: Pharynx normal. Neck: Normal inspection. Neck supple. No lymph nodes noted. No crepitus CVS: Normal heart rate and rhythm. Pulses normal. Normal S1 and S2 Respiratory: No respiratory distress. Breath sounds normal. No Wheezing. No rales Abdomen: Soft and nontender. No rigidity. No distention. Skin: Skin warm and dry. Normal skin color. Normal skin turgor. Extremities: No lower extremity edema. No Lacerations. No Rash Neuro: Oriented X 3. No motor deficit. No sensory deficit. Moving all extremities. No slurred speech. CN 2 through 12 grossly intact Psych: calm, cooperative, normal affect Course Course Course Narrative: This is a Rapid Medical Examination (RME) performed by Jignesh Miller PA-C in triage. Full HPI, ROS, assessment and treatment plan per primary provider in the Main ED. 44 yo male here for eval of burning epigastric pain/ pressure, worse with coughing and lying flat. taking ant acids at home w/o relief. pain radiates to neck and right shoulder. Plan: labs, cxr, ekg, viral swabs Medical Decision Making Medical Decision Making [facility] Narrative: My interpretation of labs: Patient's hematology and chemistry at baseline, troponin negative, serology negative for flu RSV Chest x-ray within normal limit After having a prolonged conversation with the patient, seems that his symptoms are mostly secondary to anxiety. It is possible that he goes in and out of AFib trigger his anxiety and make things worse. Patient does have history of anxiety, stopped treatment approximately 5 years ago. I discussed with the patient that we can try small doses of Ativan p.r.n. panic attacks. Seems that patient uses his anxiety medications appropriately and does not take schedule benzodiazepines, uses them only p.r.n. severe anxiety. Patient was given a dose of 0.5 mg Ativan here in the emergency room. Patient will follow-up with his PCP, discuss this issue, patient may need both a combination of p.o. medications and therapy for anxiety Differential Diagnosis Differential Diagnoses: The differential diagnosis associated with the presentation includes (Atrial fibrillation, pneumonia, costochondritis, pleurisy, anxiety) Lab Data [facility] Lab Attestation statement: I reviewed the patient's lab results. 06/08/24 17:08 06/08/24 17:08 Labs: Lab Results 06/08/24 Range/Units 17:08 WBC 10.4 (4.8-10.8) X10*3/uL RBC 5.16 (4.60-5.80) X10*6/uL Hgb 14.0 (14.0-18.0) g/dl Hct 42.5 (42.0-52.0) % MCV 82.4 (80.0-98.0) fL MCH 27.1 (27.0-33.0) pg MCHC 32.9 (31.0-36.0) g/dl RDW 12.8 (11.0-16.0) % Plt Count 302 (160-400) X10*3/uL MPV 9.2 L (9.4-12.4) fL Immature Gran % (Auto) 0.3 (0.0-0.4) % Neut % (Auto) 73.6 H (45-73) % Lymph % (Auto) 19.4 L (20-40) % [place] % (Auto) 6.0 (2-11) % Eos % (Auto) 0.5 (0-4) % Baso % (Auto) 0.2 (0-2) % Lymph # (Auto) 2.0 (1.2-4.9) X10*3/uL [place] # (Auto) 0.6 (0.1-1.2) X10*3/uL Eos # (Auto) 0.1 (0.0-0.4) X10*3/uL Baso # (Auto) 0.0 (0.0-0.2) X10*3/uL Abs Immat Gran (auto) 0.03 (0.00-0.03) X10*3/uL Absolute Neuts (auto) 7.7 (2.0-8.3) x10*3/uL Absolute Nucleated RBC 0.000 (0.0-0.012) X10*3/uL Nucleated RBC % (auto) 0.0 (0.0-0.2) /100WBC Sodium 143 (135-145) mmol/L Potassium 4.2 (3.3-5.1) mmol/L Chloride 102 (96-108) mmol/L Carbon Dioxide 28 (22-29) mmol/L Anion Gap 17 (12-20) BUN 16 (9-16) mg/dL Creatinine 1.07 (0.5-1.4) mg/dL Estim Creat Clear Calc 106.3 Estimated GFR > 60 Random Glucose 103 (60-115) mg/dL Calcium 9.7 (8.4-10.2) mg/dL Magnesium 2.0 (1.6-2.6) mg/dL Total Bilirubin 0.5 (0.0-1.0) mg/dL AST 20 (5-37) U/L ALT 30 (0-40) U/L Alkaline Phosphatase 52 (39-117) U/L Troponin I High Sens < 2.7 (<3.5-35.0) ng/L Total Protein 7.8 (6.5-8.0) g/dL Albumin 4.3 (3.5-5.0) g/dL Lipase 18 (8-78) U/L Influenza Type A (PCR) NEGATIVE (Negative) Influenza Type B (PCR) NEGATIVE (Negative) RSV RNA Qual (PCR) NEGATIVE (Negative) SARS-CoV-2 RNA (RT-PCR) NEGATIVE (Negative) Independent Interpretation I performed an independent interpretation of an: Plain X-Ray Radiology Impression Discussion of test interpretation with radiology: I have reviewed the radiologist's reading. Radiologist Impression: No significant abnormality is noted involving the heart, lungs, mediastinum, bony thorax or soft tissues. XR/XR chest 2V IMPRESSION: Unremarkable chest examination. Discharge Plan Discharge Clinical Impression: Palpitations, Anxiety Patient Disposition: Home, Self-Care Instructions: Heart Palpitations (ED), Anxiety (ED) Additional Instructions: Please follow-up with your primary care physician tomorrow. If you have any worsening or new symptoms, please return to the emergency room or call 911 Prescriptions: New lorazepam [Ativan] 0.5 mg tablet 0.5 mg PO BID PRN (Reason: anxiety) Qty: 10 0RF No Action benzonatate 200 mg capsule 200 mg PO TID 5 Days Qty: 15 0RF dexamethasone 6 mg tablet 6 mg PO DAILY 3 Days Qty: 3 0RF albuterol sulfate 90 mcg/actuation HFA aerosol inhaler 2 puff inhalation Q4-6H PRN (Reason: shortness of breath or wheezing) Qty: 8.5 0RF cyclobenzaprine 5 mg tablet 5 mg PO TID PRN (Reason: muscle spasm) 3 Days Qty: 9 0RF ibuprofen 600 mg tablet 600 mg PO TID PRN (Reason: fever or pain) Qty: 20 0RF amoxicillin 500 mg capsule 1,000 mg PO TID 5 Days Qty: 30 0RF flecainide 50 mg tablet 50 mg PO BID 30 Days Qty: 60 0RF metoprolol succinate 25 mg tablet extended release 24 hr 25 mg PO DAILY Qty: 30 0RF metoprolol succinate 50 mg tablet extended release 24 hr 50 mg PO DAILY Qty: 30 2RF Print Language: Indonesian
--- NOTE | 2024-06-08 16:41 | ECG_ITS ---
Test Reason : EPIGASTRIC PAIN Blood Pressure : */* mmHG Vent. Rate : 61 BPM Atrial Rate : 61 BPM P-R Int : 128 ms QRS Dur : 80 ms QT Int : 418 ms P-R-T Axes : 40 -1 18 degrees QTcB Int : 420 ms Normal sinus rhythm Normal ECG When compared with ECG of 30-May-2024 00:25, Sinus rhythm has replaced Atrial fibrillation Vent. rate has decreased by 64 bpm Referred By: Mary Miller Electronically Signed By: Ciro Andrew
[2024-06-08 17:13] LABS: MANUAL DIFF FLAG NO
[2024-06-08 17:16] LABS: Basophils Percent Auto 0.2 % (0-2); Eosinophils Absolute Auto 0.1 X10*3/uL (0.0-0.4); Eosinophils Percent Auto 0.5 % (0-4); Hematocrit 42.5 % (42.0-52.0); Imm Gran Abs Auto 0.03 X10*3/uL (0.00-0.03); Imm Gran Pct Auto 0.3 % (0.0-0.4); Lymphocytes Percent Auto 19.4 % (20-40); Mean Corpuscular HGB Conc 32.9 g/dl (31.0-36.0); Mean Corpuscular Hemoglobin 27.1 pg (27.0-33.0); Mean Corpuscular Volume 82.4 fL (80.0-98.0); Mean Platelet Volume 9.2 fL (9.4-12.4); Monocytes Absolute Auto 0.6 X10*3/uL (0.1-1.2); Neutrophils Absolute Auto 7.7 x10*3/uL (2.0-8.3); Neutrophils Percent Auto 73.6 % (45-73); Platelet Count 302 X10*3/uL (160-400); Red Blood Count 5.16 X10*6/uL (4.60-5.80); Red Cell Distribution Width 12.8 % (11.0-16.0); White Blood Count 10.4 X10*3/uL (4.8-10.8)
[2024-06-08 17:30] LABS: Alanine Aminotransferase 30 U/L (0-40); Albumin Level 4.3 g/dL (3.5-5.0); Alkaline Phosphatase 52 U/L (39-117); Anion Gap 17 (12-20); Aspartate Amino Transferase 20 U/L (5-37); Bilirubin Total 0.5 mg/dL (0.0-1.0); Blood Urea Nitrogen 16 mg/dL (9-16); Calcium 9.7 mg/dL (8.4-10.2); Carbon Dioxide 28 mmol/L (22-29); Chloride 102 mmol/L (96-108); Creatinine Clr Calc Pharmacy 106.3; Estimated Glomerular Filt Rate > 60; Glucose Random 103 mg/dL (60-115); Lipase 18 U/L (8-78); Potassium 4.2 mmol/L (3.3-5.1); Sodium 143 mmol/L (135-145); Total Protein 7.8 g/dL (6.5-8.0)
[2024-06-08 17:35] LABS: Troponin-I High Sensitivity < 2.7 ng/L (<3.5-35.0)
[2024-06-08 17:55] LABS: Influenza A PCR NEGATIVE (Negative); Influenza B PCR NEGATIVE (Negative); Resp Syncy Virus RNA Qual PCR NEGATIVE (Negative); SARS COV2 PCR INHOUSE NEGATIVE (Negative)
[2024-06-08 20:43] VITALS: BP 104/62; PULSE 65; RESP 18; TEMP 36.3; O2SAT 97
[2024-06-08 22:51] VITALS: BP 125/78; PULSE 70; RESP 19; TEMP 36.4; O2SAT 97
[2024-06-08] MEDS: LORazepam 0.5 MG TABLET PO (23:56)
[2024-06-09 00:01] VITALS: BP 125/78; PULSE 70; RESP 19; TEMP 36.4; O2SAT 97
== END 2024-06-09 00:02 | disposition home or self-care (01) ==
PROVIDERS: Physician Assistant Medical; Emergency Provider Emergency Medicine; PCP Internal Medicine
DX: R00.2 Palpitations (principal); R10.2 Pelvic and perineal pain; F41.9 Anxiety disorder, unspecified; Z03.818 Encounter for observation for suspected exposure to other biological agents ruled out; Z79.899 Other long term (current) drug therapy
CPT/HCPCS: 0241U; 36415; 71046; 80053; 83690; 83735; 84484; 85025; 93005; 99283; 99284

== ENCOUNTER → 2024-06-08 16:41 | Outpatient (BNV) | payer OTHER, SELFPAY | PROVIDERS: PCP Internal Medicine; Visit Provider Radiology Diagnostic Radiology | DX: R05.9 Cough, unspecified (principal) | CPT/HCPCS: 71046 ==

== ENCOUNTER → 2024-06-10 09:01 | Outpatient (BNVA) | payer OTHER, SELFPAY | PROVIDERS: PCP Internal Medicine; Visit Provider Nurse Practitioner Family | DX: I48.0 Paroxysmal atrial fibrillation (principal); G47.30 Sleep apnea, unspecified; F41.9 Anxiety disorder, unspecified | CPT/HCPCS: 93005 ==

== ENCOUNTER 2024-06-11 17:47 | Emergency (ER) | payer OTHER, SELFPAY ==
--- NOTE | ~2024-06-11 | XR_ITS ---
CLINICAL HISTORY: pain 1 view chest x-ray Comparison: CR/SR - XR CHEST 2V - 06/08/2024 04:58 PM EST 05/30/2024 Findings: No consolidation or effusion. Normal size heart. No acute fracture. IMPRESSION: 1. No acute findings. This document has been electronically signed by: Jad Al MD on 06/11/2024 18:49:24
--- NOTE | 2024-06-11 17:50 | ECG_ITS ---
Test Reason : papitatiom Blood Pressure : */* mmHG Vent. Rate : 72 BPM Atrial Rate : 72 BPM P-R Int : 126 ms QRS Dur : 78 ms QT Int : 376 ms P-R-T Axes : 39 -2 14 degrees QTcB Int : 411 ms Normal sinus rhythm Normal ECG When compared with ECG of 08-Jun-2024 17:04, No significant change was found Referred By: Generic ED Physician Electronically Signed By: Ciro Andrew
[2024-06-11 18:02] VITALS: BP 133/77; PULSE 73; RESP 19; TEMP 36.6; O2SAT 99; BMI 38.8
--- NOTE | 2024-06-11 18:07 | ED.CHESTPAIN ---
HPI - Chest Pain General Chief Complaint: Chest Pain Stated Complaint: afib/chest pains Time Seen by Provider: 06/11/24 20:54 Source: patient Limitations: no limitations History of Present Illness ED Provider: Iwona Licona PA-C HPI narrative: 44-year-old male with a history of AFib, sleep apnea and anxiety who presents with palpitations. Patient states he has had 2 episodes of palpitations today, the 2nd episode lasted longer than usual and he developed chest and back pain. Patient is extremely anxious over these events and self admits that he cried. Patient just saw his research neuropsychologist yesterday, he has a sleep study pending as well as other assessments. Patient denies use of alcohol, cocaine or other stimulants, no caffeine. He has not been sick recently no fevers. Related Data Previous Rx's ?Medication ?Instructions ?Recorded albuterol sulfate 90 mcg/actuation 2 puff inhalation Q4-6H PRN 06/01/21 aerosol inhaler shortness of breath or wheezing #8.5 grams ibuprofen 600 mg tablet 600 mg PO TID PRN fever or pain 05/23/24 #20 tabs lorazepam 0.5 mg tablet (Ativan) 0.5 mg PO BID PRN anxiety #10 tabs 06/08/24 flecainide 50 mg tablet 50 mg PO BID 90 days #180 tabs 06/10/24 metoprolol succinate 25 mg 25 mg PO DAILY #90 tabs 06/10/24 tablet,extended release 24 hr Allergies Allergy/AdvReac Type Severity Reaction Status Date / Time No Known Allergies Allergy Verified 06/11/24 18:04 Review of Systems Review of Systems: Yes all other systems are reviewed and are negative Constitutional: Constitutional: Denies fatigue and Denies fever(s) Cardiovascular: Cardiovascular: Reports chest pain, Reports palpitations and Denies dyspnea Respiratory: Respiratory: Denies cough and Denies dyspnea Gastrointestinal: Gastrointestinal: Denies abdominal pain, Denies diarrhea, Denies nausea and Denies vomiting Endocrine: Endocrine: Denies fatigue and Reports palpitations PMFSH Past Medical History Attestation statement: The following information was validated with the patient. Medical History (Updated 06/11/24 @ 21:11 by EMMETT Michelle) Anxiety Atrial fibrillation COVID-19 Obese Asthma Family History Family History Family/Other Lung cancer Social History Social History Substance Use Type: Caffiene Advance Directives: No Advance Directives Information Provided: Yes Do you have a plan to hurt others: No Plan Physical Exam Vital Signs: Vital Signs: Last Vital Signs Temp 98 F 06/11/24 18:02 Pulse 73 06/11/24 18:02 Resp 19 06/11/24 18:02 BP 133/77 06/11/24 18:02 Pulse Ox 99 06/11/24 18:02 O2 Del Method Room Air 06/11/24 18:02 BMI result Body Mass Index 38.8 Const: Other: Alert Orientation/consciousness: patient oriented x3 Resp: Effort & Inspection: normal respiratory effort Cardio: Other: Normal peripheral perfusion Skin: Other: Warm dry no rash Neuro: General: patient oriented x3, no focal motor deficits and CN's II-XI intact bilaterally Psych: Other: Cooperative yet anxious Course Course Course Narrative: This is a rapid medical exam performed by Iwona Licona PA-C. The patient is a 44-year-old male with a history of AFib, sleep apnea and anxiety who presents with palpitations. Patient states he has had 2 episodes of palpitations today, the 2nd episode lasted longer than usual and he developed chest and back pain. At this time the patient's rate is 74. EKG already obtained. We will add screening labs troponin and chest x-ray. Has not been sick recently no cough or cold symptoms, he does not use excessive stimulants he denies use of alcohol. The patient is stable and can return to the waiting room pending his full medical assessment. Medical Decision Making Medical Decision Making MDM Narrative: 44-year-old male with a history of AFib, sleep apnea and anxiety who presents with palpitations. Patient states he has had 2 episodes of palpitations today, the 2nd episode lasted longer than usual and he developed chest and back pain. Patient is extremely anxious over these events and self admits that he cried. Patient just saw his research neuropsychologist yesterday, he has a sleep study pending as well as other assessments. Patient denies use of alcohol, cocaine or other stimulants, no caffeine. He has not been sick recently no fevers. Problem: AFib, obesity, apnea, anxiety History: Per patient I have considered the following differential diagnoses: AFib RVR, new heart failure, ACS Plan: The patient was not in AFib at this point, he is normal sinus rhythm. He is not exhibiting signs of new heart failure that could have precipitated his episode of AFib, he is not hypoxic, he is not volume overloaded on exam, he is not overtly hypertensive. I also do not think this is ACS, the patient was extremely anxious, he was having chest discomfort with the palpitations. We will be screening basic labs including troponin and a chest x-ray. Labs: No leukocytosis, not anemic, no electrolyte abnormality troponin negative EKG: Normal sinus rhythm, rate of 72, no ischemic changes no ectopy QTC 411 CXR: Findings: No consolidation or effusion. Normal size heart. No acute fracture. IMPRESSION: 1. No acute findings. This document has been electronically signed by: Jad Al MD on 06/11/2024 18:49:24 Lab Data 06/11/24 18:19 06/11/24 18:19 Labs: Lab Results 06/11/24 Range/Units 18:19 WBC 7.6 (4.8-10.8) X10*3/uL RBC 5.01 (4.60-5.80) X10*6/uL Hgb 13.8 L (14.0-18.0) g/dl Hct 41.5 L (42.0-52.0) % MCV 82.8 (80.0-98.0) fL MCH 27.5 (27.0-33.0) pg MCHC 33.3 (31.0-36.0) g/dl RDW 13.0 (11.0-16.0) % Plt Count 313 (160-400) X10*3/uL MPV 9.1 L (9.4-12.4) fL Immature Gran % (Auto) 0.1 (0.0-0.4) % Neut % (Auto) 67.1 (45-73) % Lymph % (Auto) 24.2 (20-40) % [place] % (Auto) 7.2 (2-11) % Eos % (Auto) 0.9 (0-4) % Baso % (Auto) 0.5 (0-2) % Lymph # (Auto) 1.8 (1.2-4.9) X10*3/uL [place] # (Auto) 0.6 (0.1-1.2) X10*3/uL Eos # (Auto) 0.1 (0.0-0.4) X10*3/uL Baso # (Auto) 0.0 (0.0-0.2) X10*3/uL Abs Immat Gran (auto) 0.01 (0.00-0.03) X10*3/uL Absolute Neuts (auto) 5.1 (2.0-8.3) x10*3/uL Absolute Nucleated RBC 0.000 (0.0-0.012) X10*3/uL Nucleated RBC % (auto) 0.0 (0.0-0.2) /100WBC Sodium 142 (135-145) mmol/L Potassium 4.0 (3.3-5.1) mmol/L Chloride 106 (96-108) mmol/L Carbon Dioxide 27 (22-29) mmol/L Anion Gap 13 (12-20) BUN 18 H (9-16) mg/dL Creatinine 1.30 (0.5-1.4) mg/dL Estim Creat Clear Calc 87.6 Estimated GFR 59 Random Glucose 98 (60-115) mg/dL Calcium 9.4 (8.4-10.2) mg/dL Troponin I High Sens < 2.7 (<3.5-35.0) ng/L Discharge Plan Discharge Clinical Impression: Atrial fibrillation, Anxiety Patient Disposition: Home, Self-Care Instructions: Anxiety (ED), A-fib (Atrial Fibrillation) (ED) Additional Instructions: All of your screening labs were normal including a cardiac enzyme, there were no concerning changes on your EKG you were not an AFib here in the ER. The chest x-ray is clear. Keep your follow up appointments with your research neuropsychologist. Prescriptions: No Action flecainide 50 mg tablet 50 mg PO BID 90 Days Qty: 180 3RF metoprolol succinate 25 mg tablet extended release 24 hr 25 mg PO DAILY Qty: 90 3RF albuterol sulfate 90 mcg/actuation HFA aerosol inhaler 2 puff inhalation Q4-6H PRN (Reason: shortness of breath or wheezing) Qty: 8.5 0RF ibuprofen 600 mg tablet 600 mg PO TID PRN (Reason: fever or pain) Qty: 20 0RF lorazepam [Ativan] 0.5 mg tablet 0.5 mg PO BID PRN (Reason: anxiety) Qty: 10 0RF Print Language: Danish
[2024-06-11 18:26] LABS: MANUAL DIFF FLAG NO
[2024-06-11 18:28] LABS: Basophils Percent Auto 0.5 % (0-2); Eosinophils Absolute Auto 0.1 X10*3/uL (0.0-0.4); Eosinophils Percent Auto 0.9 % (0-4); Hematocrit 41.5 % (42.0-52.0); Hemoglobin 13.8 g/dl (14.0-18.0); Imm Gran Abs Auto 0.01 X10*3/uL (0.00-0.03); Imm Gran Pct Auto 0.1 % (0.0-0.4); Lymphocytes Absolute Auto 1.8 X10*3/uL (1.2-4.9); Lymphocytes Percent Auto 24.2 % (20-40); Mean Corpuscular HGB Conc 33.3 g/dl (31.0-36.0); Mean Corpuscular Hemoglobin 27.5 pg (27.0-33.0); Mean Corpuscular Volume 82.8 fL (80.0-98.0); Mean Platelet Volume 9.1 fL (9.4-12.4); Monocytes Absolute Auto 0.6 X10*3/uL (0.1-1.2); Monocytes Percent Auto 7.2 % (2-11); Neutrophils Absolute Auto 5.1 x10*3/uL (2.0-8.3); Neutrophils Percent Auto 67.1 % (45-73); Platelet Count 313 X10*3/uL (160-400); Red Blood Count 5.01 X10*6/uL (4.60-5.80); White Blood Count 7.6 X10*3/uL (4.8-10.8)
[2024-06-11 18:39] LABS: Anion Gap 13 (12-20); Blood Urea Nitrogen 18 mg/dL (9-16); Calcium 9.4 mg/dL (8.4-10.2); Carbon Dioxide 27 mmol/L (22-29); Chloride 106 mmol/L (96-108); Creatinine Clr Calc Pharmacy 87.6; Estimated Glomerular Filt Rate 59; Glucose Random 98 mg/dL (60-115); Sodium 142 mmol/L (135-145)
[2024-06-11 18:47] LABS: Troponin-I High Sensitivity < 2.7 ng/L (<3.5-35.0)
[2024-06-11 21:14] VITALS: BP 133/77; PULSE 73; RESP 19; TEMP 36.6; O2SAT 99
== END 2024-06-11 21:15 | disposition home or self-care (01) ==
PROVIDERS: Physician Assistant Medical; Emergency Provider Emergency Medicine; PCP Internal Medicine
DX: R07.89 Other chest pain (principal); I48.91 Unspecified atrial fibrillation; G47.30 Sleep apnea, unspecified; R00.2 Palpitations; F41.9 Anxiety disorder, unspecified; Z79.899 Other long term (current) drug therapy
CPT/HCPCS: 36415; 71045; 80048; 84484; 85025; 93005; 99283

== ENCOUNTER → 2024-06-11 17:50 | Outpatient (BNV) | payer OTHER, SELFPAY | PROVIDERS: Emergency Provider Emergency Medicine; PCP Internal Medicine; Visit Provider Internal Medicine Cardiovascular Disease | DX: R00.2 Palpitations (principal) | CPT/HCPCS: 93010 ==

== ENCOUNTER → 2024-06-11 18:05 | Outpatient (BNV) | payer OTHER, SELFPAY | PROVIDERS: PCP Internal Medicine; Visit Provider Specialist | DX: R07.9 Chest pain, unspecified (principal) | CPT/HCPCS: 71045 ==

== ENCOUNTER 2024-06-18 19:48 | Emergency (ER) | payer OTHER, SELFPAY ==
--- NOTE | ~2024-06-18 | XR_ITS ---
CLINICAL HISTORY: pain 1 view abdomen Comparison: None Findings: No pneumoperitoneum or pneumatosis. No abnormal calcifications. No acute fractures. Scattered clips in the right lower quadrant. Colonic stool burden. Mild gaseous distended loops of small bowel in the left abdomen measuring 3.4 cm may reflect a component of ileus. IMPRESSION: Suspect mild small bowel ileus. This document has been electronically signed by: Cory Hernandez MD on 06/19/2024 00:29:32
[2024-06-18 20:09] VITALS: BP 113/70; PULSE 58; RESP 16; TEMP 36.3; O2SAT 97; BMI 36.3
--- NOTE | 2024-06-18 20:09 | ED.GENADULT ---
HPI - General Adult General Chief complaint: Abdominal Pain Stated complaint: abdominal pain w bloating Time Seen by Provider: 06/19/24 00:11 Source: patient Limitations: no limitations History of Present Illness ED Provider: Iwona Licona PA-C HPI narrative: 44-year-old male with a history of AFib, sleep apnea and anxiety presents with the abdominal pain times 2-3 days. Pain is diffuse described as cramping, with the associated distention and nausea. Poor p.o. intake. Denies constipation, he sts he has a BM today. Related Data Previous Rx's ?Medication ?Instructions ?Recorded albuterol sulfate 90 mcg/actuation 2 puff inhalation Q4-6H PRN 06/01/21 aerosol inhaler shortness of breath or wheezing #8.5 grams ibuprofen 600 mg tablet 600 mg PO TID PRN fever or pain 05/23/24 #20 tabs lorazepam 0.5 mg tablet (Ativan) 0.5 mg PO BID PRN anxiety #10 tabs 06/08/24 flecainide 50 mg tablet 50 mg PO BID 90 days #180 tabs 06/10/24 metoprolol succinate 25 mg 25 mg PO DAILY #90 tabs 06/10/24 tablet,extended release 24 hr Allergies Allergy/AdvReac Type Severity Reaction Status Date / Time No Known Allergies Allergy Verified 06/18/24 20:10 Review of Systems Review of Systems: Yes all other systems are reviewed and are negative Constitutional: Constitutional: Denies fatigue, Denies fever(s) and Reports poor appetite Cardiovascular: Cardiovascular: Denies chest pain and Denies dyspnea Respiratory: Respiratory: Denies cough and Denies dyspnea Gastrointestinal: Gastrointestinal: Reports abdominal pain, Denies constipation, Denies diarrhea, Reports nausea and Denies vomiting Endocrine: Endocrine: Denies fatigue PMF Past Medical History Attestation statement: The following information was validated with the patient. Medical History (Updated 06/19/24 @ 02:13 by EMMETT Michelle) Anxiety Atrial fibrillation COVID-19 Obese Asthma Family History Family History Family/Other Lung cancer Social History Social History Substance Use Type: Caffiene Advance Directives: No Advance Directives Information Provided: Yes Do you have a plan to hurt others: No Plan Physical Exam ED Vital Signs: Vital Signs - 24 hr 06/18/24 20:09 Temperature 97.4 F Pulse Rate 58 Respiratory Rate 16 Blood Pressure 113/70 Pulse Oximetry 97 Oxygen Delivery Method Room Air BMI result Body Mass Index 36.3 Const Other: Alert well-appearing Orientation/consciousness: patient oriented x3 Resp Effort & Inspection: normal respiratory effort Cardio Other: Normal peripheral perfusion GI Other: Obese abdomen is soft, nondistended, generalized tenderness to palpation without guarding Skin Other: Warm dry no rash Neuro General: patient oriented x3, gait normal, no focal motor deficits and CN's II-XI intact bilaterally Psych Other: Cooperative Course Course Course Narrative: RME, this is a rapid medical exam performed by Srinivas Mario please refer to primary provider for complete H&P- 44-year-old male presents for evaluation of diffuse abdominal pain for last few days. He reports that he feels distended. He had a bowel movement yesterday and today. He reports subjective fevers and chills. He endorses nausea but no vomiting. Plan for labs, urinalysis. Will defer CT scan at this time, low suspicion for obstruction since the patient is continuing to have bowel movements Medical Decision Making Medical Decision Making MDM Narrative: 44-year-old male with a history of AFib, sleep apnea and anxiety presents with the abdominal pain times 2-3 days. Pain is diffuse described as cramping, with the associated distention and nausea. Poor p.o. intake. Denies constipation, he sts he has a BM today. No relevant chronic issues History: Per patient I have considered the following differential diagnoses: Constipation, fecal impaction, bowel obstruction, viral gastroenteritis Plan: Patient here with a vague abdominal symptoms, in the setting with normal labs. I am obtaining a KUB, he is likely constipated despite denying constipation. He does not have symptoms that are consistent with viral gastroenteritis. He does not have an obstructive pattern with the his symptoms. He does not warrant a CT scan at this time. I have independently reviewed the following tests: Labs: No leukocytosis, not anemic, no electrolyte abnormalities, viral panel negative KUB, Findings: No pneumoperitoneum or pneumatosis. No abnormal calcifications. No acute fractures. Scattered clips in the right lower quadrant. Colonic stool burden. Mild gaseous distended loops of small bowel in the left abdomen measuring 3.4 cm may reflect a component of ileus. IMPRESSION: Suspect mild small bowel ileus. This document has been electronically signed by: Cory Hernandez MD on 06/19/2024 00:29:32 Lab Data 06/18/24 20:55 06/18/24 20:55 Labs: Lab Results 06/18/24 Range/Units 20:55 WBC 7.3 (4.8-10.8) X10*3/uL RBC 4.93 (4.60-5.80) X10*6/uL Hgb 13.7 L (14.0-18.0) g/dl Hct 40.8 L (42.0-52.0) % MCV 82.8 (80.0-98.0) fL MCH 27.8 (27.0-33.0) pg MCHC 33.6 (31.0-36.0) g/dl RDW 12.7 (11.0-16.0) % Plt Count 319 (160-400) X10*3/uL MPV 9.1 L (9.4-12.4) fL Immature Gran % (Auto) 0.1 (0.0-0.4) % Neut % (Auto) 62.0 (45-73) % Lymph % (Auto) 30.1 (20-40) % [place] % (Auto) 6.4 (2-11) % Eos % (Auto) 1.0 (0-4) % Baso % (Auto) 0.4 (0-2) % Lymph # (Auto) 2.2 (1.2-4.9) X10*3/uL [place] # (Auto) 0.5 (0.1-1.2) X10*3/uL Eos # (Auto) 0.1 (0.0-0.4) X10*3/uL Baso # (Auto) 0.0 (0.0-0.2) X10*3/uL Abs Immat Gran (auto) 0.01 (0.00-0.03) X10*3/uL Absolute Neuts (auto) 4.5 (2.0-8.3) x10*3/uL Absolute Nucleated RBC 0.000 (0.0-0.012) X10*3/uL Nucleated RBC % (auto) 0.0 (0.0-0.2) /100WBC Sodium 138 (135-145) mmol/L Potassium 4.1 (3.3-5.1) mmol/L Chloride 104 (96-108) mmol/L Carbon Dioxide 27 (22-29) mmol/L Anion Gap 11 L (12-20) BUN 11 (9-16) mg/dL Creatinine 1.11 (0.5-1.4) mg/dL Estim Creat Clear Calc 99.2 Estimated GFR > 60 Random Glucose 94 (60-115) mg/dL Calcium 9.8 (8.4-10.2) mg/dL Total Bilirubin 0.5 (0.0-1.0) mg/dL AST 23 (5-37) U/L ALT 31 (0-40) U/L Alkaline Phosphatase 54 (39-117) U/L Total Protein 7.8 (6.5-8.0) g/dL Albumin 4.4 (3.5-5.0) g/dL Lipase 18 (8-78) U/L Influenza Type A (PCR) NEGATIVE (Negative) Influenza Type B (PCR) NEGATIVE (Negative) RSV RNA Qual (PCR) NEGATIVE (Negative) SARS-CoV-2 RNA (RT-PCR) NEGATIVE (Negative) Discharge Plan Discharge Clinical Impression: Constipation Patient Disposition: Home, Self-Care Instructions: Constipation (ED) Additional Instructions: All of your screening labs were normal, you were found to be considerably constipated. See home care instructions. You need to use [id number] Colace, this is a stool softener twice a day. In addition you need to purchase [id number] MiraLax, use the mixture every hour until you begin having multiple large volume bowel movements. You are essentially doing a bowel prep. Follow up with your primary care provider as needed. Prescriptions: No Action flecainide 50 mg tablet 50 mg PO BID 90 Days Qty: 180 3RF metoprolol succinate 25 mg tablet extended release 24 hr 25 mg PO DAILY Qty: 90 3RF albuterol sulfate 90 mcg/actuation HFA aerosol inhaler 2 puff inhalation Q4-6H PRN (Reason: shortness of breath or wheezing) Qty: 8.5 0RF ibuprofen 600 mg tablet 600 mg PO TID PRN (Reason: fever or pain) Qty: 20 0RF lorazepam [Ativan] 0.5 mg tablet 0.5 mg PO BID PRN (Reason: anxiety) Qty: 10 0RF Print Language: Sammarinese
[2024-06-18 21:00] LABS: MANUAL DIFF FLAG NO
[2024-06-18 21:01] LABS: Basophils Percent Auto 0.4 % (0-2); Eosinophils Absolute Auto 0.1 X10*3/uL (0.0-0.4); Hematocrit 40.8 % (42.0-52.0); Hemoglobin 13.7 g/dl (14.0-18.0); Imm Gran Abs Auto 0.01 X10*3/uL (0.00-0.03); Imm Gran Pct Auto 0.1 % (0.0-0.4); Lymphocytes Absolute Auto 2.2 X10*3/uL (1.2-4.9); Lymphocytes Percent Auto 30.1 % (20-40); Mean Corpuscular HGB Conc 33.6 g/dl (31.0-36.0); Mean Corpuscular Hemoglobin 27.8 pg (27.0-33.0); Mean Corpuscular Volume 82.8 fL (80.0-98.0); Mean Platelet Volume 9.1 fL (9.4-12.4); Monocytes Absolute Auto 0.5 X10*3/uL (0.1-1.2); Monocytes Percent Auto 6.4 % (2-11); Neutrophils Absolute Auto 4.5 x10*3/uL (2.0-8.3); Platelet Count 319 X10*3/uL (160-400); Red Blood Count 4.93 X10*6/uL (4.60-5.80); Red Cell Distribution Width 12.7 % (11.0-16.0); White Blood Count 7.3 X10*3/uL (4.8-10.8)
[2024-06-18 21:22] LABS: Alanine Aminotransferase 31 U/L (0-40); Albumin Level 4.4 g/dL (3.5-5.0); Alkaline Phosphatase 54 U/L (39-117); Anion Gap 11 (12-20); Aspartate Amino Transferase 23 U/L (5-37); Bilirubin Total 0.5 mg/dL (0.0-1.0); Blood Urea Nitrogen 11 mg/dL (9-16); Calcium 9.8 mg/dL (8.4-10.2); Carbon Dioxide 27 mmol/L (22-29); Chloride 104 mmol/L (96-108); Creatinine Clr Calc Pharmacy 99.2; Estimated Glomerular Filt Rate > 60; Glucose Random 94 mg/dL (60-115); Lipase 18 U/L (8-78); Potassium 4.1 mmol/L (3.3-5.1); Sodium 138 mmol/L (135-145); Total Protein 7.8 g/dL (6.5-8.0)
[2024-06-18 21:38] LABS: Influenza A PCR NEGATIVE (Negative); Influenza B PCR NEGATIVE (Negative); Resp Syncy Virus RNA Qual PCR NEGATIVE (Negative); SARS COV2 PCR INHOUSE NEGATIVE (Negative)
[2024-06-19 02:39] VITALS: BP 137/89; PULSE 77; RESP 17; TEMP 36.9; O2SAT 98
[2024-06-19 02:41] VITALS: BP 137/89; PULSE 77; RESP 17; TEMP 36.9; O2SAT 98
== END 2024-06-19 02:41 | disposition home or self-care (01) ==
PROVIDERS: Physician Assistant; Emergency Provider Emergency Medicine; PCP Internal Medicine
DX: K59.00 Constipation, unspecified (principal); R10.2 Pelvic and perineal pain; R14.0 Abdominal distension (gaseous); R11.0 Nausea; Z03.818 Encounter for observation for suspected exposure to other biological agents ruled out; Z79.899 Other long term (current) drug therapy
CPT/HCPCS: 0241U; 74018; 80053; 83690; 85025; 99283; 99284

== ENCOUNTER → 2024-06-19 00:13 | Outpatient (BNV) | payer OTHER, SELFPAY | PROVIDERS: Emergency Provider Emergency Medicine; PCP Internal Medicine; Visit Provider Radiology Diagnostic Radiology | DX: R10.9 Unspecified abdominal pain (principal) | CPT/HCPCS: 74018 ==

== ENCOUNTER 2024-06-20 19:51 | Emergency (ER) | payer OTHER, SELFPAY ==
--- NOTE | 2024-06-20 19:53 | ECG_ITS ---
Test Reason : CP, AFIB Blood Pressure : */* mmHG Vent. Rate : 139 BPM Atrial Rate : 278 BPM P-R Int : * ms QRS Dur : 156 ms QT Int : 350 ms P-R-T Axes : 255 -24 -46 degrees QTcB Int : 532 ms Atrial flutter with 2:1 A-V conduction Abnormal ECG When compared with ECG of 11-Jun-2024 17:54, Atrial flutter has replaced Sinus rhythm Vent. rate has increased by 67 bpm Referred By: Belinda Curry Electronically Signed By: NILAM PAYNE
--- NOTE | 2024-06-20 20:28 | ED_ITS ---
HPI - Arrhythmia/Palpitations General Chief Complaint: Arrhythmia/Palpitations Stated Complaint: AFIB, CP Time Seen by Provider: 06/20/24 20:27 Source: patient Mode of arrival: ambulatory Limitations: no limitations History of Present Illness ED Provider: Dr. Juma Dimas HPI narrative: 44-year-old male with a history of obstructive sleep however, atrial fibrillation, asthma and anxiety who presents emergency department for evaluation of intermittent palpitations, chest pain, lightheadedness, dizziness since 06/18/2024. Patient states he was 1st diagnosed with atrial fibrillation in May of 2024 and has followed up with Dr. Andrew. The patient takes flecainide and metoprolol and he states he has been compliant with his medications. He states that he was had intermittent episodes of chest palpitations that she describes as a pressure-like sensation and points to his sternum when asked to localize the pain. He states that the pain can be 10/10 at times. He states that when he feels the palpitations he feels lightheaded and short of breath. Pain does not radiate to his neck, jaw, or arms. Related Data Previous Rx's ?Medication ?Instructions ?Recorded albuterol sulfate 90 mcg/actuation 2 puff inhalation Q4-6H PRN 06/01/21 aerosol inhaler shortness of breath or wheezing #8.5 grams ibuprofen 600 mg tablet 600 mg PO TID PRN fever or pain 05/23/24 #20 tabs lorazepam 0.5 mg tablet (Ativan) 0.5 mg PO BID PRN anxiety #10 tabs 06/08/24 flecainide 50 mg tablet 50 mg PO BID 90 days #180 tabs 06/10/24 metoprolol succinate 25 mg 25 mg PO DAILY #90 tabs 06/10/24 tablet,extended release 24 hr flecainide 50 mg tablet See Rx Instructions .Route 06/20/24 .COMPLEX #90 tabs Allergies Allergy/AdvReac Type Severity Reaction Status Date / Time No Known Allergies Allergy Verified 06/20/24 20:30 Review of Systems 2 Review of Systems: Yes all other systems are reviewed and are negative PMFSH Past Medical History Medical History (Updated 06/20/24 @ 22:50 by Juma Dimas MD) Anxiety Atrial fibrillation COVID-19 Obese Asthma Family History Family History Family/Other Lung cancer Social History Social History Alcohol intake: former Smoked in Last 30 Days: No Use of substances other than those prescribed or required for medical reasons: No Substance Use Type: Caffiene Advance Directives: No Advance Directives Information Provided: Yes Physical Exam 2 Vital Signs: Vital Signs: Last Vital Signs Temp 98.1 F 06/20/24 20:30 Pulse 152 H 06/20/24 20:30 Resp 20 06/20/24 20:30 BP 128/69 06/20/24 20:30 Pulse Ox 97 06/20/24 20:30 O2 Del Method Room Air 06/20/24 20:30 BMI result Body Mass Index 36.8 Exam: General: Awake, alert in no distress Head: Normocephalic, atraumatic EENT: PERRL, Lids normal, sclera normal, conjunctiva normal, nose normal , ears normal, throat without erythema or exudates Neck: Supple, no adenopathy Lung: breath sounds symmetric, no wheezing, rales or rhonchi Chest: symmetric movement, nontender Heart: regular rate and rhythm, normal S1, S2 no murmurs or rubs Abdomen: soft, non-tender, nondistended, normal bowel sounds Back: no vertebral tenderness, no CVAT Extremities: no deformities, moves all extremities symmetrically Neuro: Awake, alert, oriented, normal speech, cranial nerves intact, moves all extremities symmetrically Psych: Pleasant, cooperative Medical Decision Making Medical Decision Making MDM Narrative: 44-year-old male with a history of obstructive sleep however, atrial fibrillation, asthma and anxiety who presents emergency department for evaluation of intermittent palpitations, chest pain, lightheadedness, dizziness since 06/18/2024. Physical examination was unremarkable Differential diagnosis: ?Includes but is not limited to atrial fibrillation, atrial flutter, palpitations, electrolyte abnormalities, anemia, myocardial infarction, myocardial ischemia Course: 22:54 My interpretation patient's laboratory evaluation is as follows: CBC was normal. CMP was normal. Troponin was below detectable limits. Patient's initial 12 EKG revealed atrial fibrillation with a rapid ventricular rate but then the patient was spontaneously converted to normal sinus rhythm in his remained in normal sinus rhythm. Patient was feeling better now that he no longer has a rapid rate. The patient states that his initial dose of metoprolol ER was 50 mg in his provider decreased from a 25 mg daily. The patient's symptoms and presentation are consistent with paroxysmal atrial fibrillation. The patient's flecainide will be increased from 50 mg b.i.d. to 50 mg in the morning and 100 mg at night to see if this can keep him out of atrial fibrillation. The patient was given printed and verbal instructions and discharged home. 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 Admission/Observation Consideration of admission/observation: Escalation of care including admission/observation considered (Yes) Lab Data MDM Lab Attestation statement: I reviewed the patient's lab results. 06/20/24 20:24 06/20/24 20:24 Labs: Lab Results 06/20/24 Range/Units 20:24 WBC 7.1 (4.8-10.8) X10*3/uL RBC 4.95 (4.60-5.80) X10*6/uL Hgb 13.5 L (14.0-18.0) g/dl Hct 40.6 L (42.0-52.0) % MCV 82.0 (80.0-98.0) fL MCH 27.3 (27.0-33.0) pg MCHC 33.3 (31.0-36.0) g/dl RDW 12.7 (11.0-16.0) % Plt Count 275 (160-400) X10*3/uL MPV 9.2 L (9.4-12.4) fL Immature Gran % (Auto) 0.1 (0.0-0.4) % Neut % (Auto) 62.6 (45-73) % Lymph % (Auto) 28.9 (20-40) % [place] % (Auto) 6.9 (2-11) % Eos % (Auto) 1.1 (0-4) % Baso % (Auto) 0.4 (0-2) % Lymph # (Auto) 2.1 (1.2-4.9) X10*3/uL [place] # (Auto) 0.5 (0.1-1.2) X10*3/uL Eos # (Auto) 0.1 (0.0-0.4) X10*3/uL Baso # (Auto) 0.0 (0.0-0.2) X10*3/uL Abs Immat Gran (auto) 0.01 (0.00-0.03) X10*3/uL Absolute Neuts (auto) 4.5 (2.0-8.3) x10*3/uL Absolute Nucleated RBC 0.000 (0.0-0.012) X10*3/uL Nucleated RBC % (auto) 0.0 (0.0-0.2) /100WBC Sodium 141 (135-145) mmol/L Potassium 3.7 (3.3-5.1) mmol/L Chloride 105 (96-108) mmol/L Carbon Dioxide 24 (22-29) mmol/L Anion Gap 16 (12-20) BUN 12 (9-16) mg/dL Creatinine 1.03 (0.5-1.4) mg/dL Estim Creat Clear Calc 107.6 Estimated GFR > 60 Random Glucose 111 (60-115) mg/dL Calcium 9.4 (8.4-10.2) mg/dL Total Bilirubin 0.4 (0.0-1.0) mg/dL AST 28 (5-37) U/L ALT 33 (0-40) U/L Alkaline Phosphatase 54 (39-117) U/L Troponin I High Sens < 2.7 (<3.5-35.0) ng/L B-Natriuretic Peptide 17 (<100) pg/mL Total Protein 7.8 (6.5-8.0) g/dL Albumin 4.4 (3.5-5.0) g/dL Independent Interpretation I performed an independent interpretation of an: EKG Interpretation: My independent interpretation the patient's EKGs are as follows: EKG 1. Done on 06/20/2024 at 19:58 hours revealed atrial flutter with a 2-1 block with a ventricular rate of 139, prolonged QRS duration of 156 milliseconds prolonged QTC interval of 532 milliseconds. The patient had ST segment depression leads 2, AVF, V2 through V6 less than 1-2 mm. No significant T-wave abnormalities. EKG 2. Done 06/20/2024 at 20:39 hours is as follows: Normal sinus rhythm rate of 83, normal IL interval, QRS duration QTC interval, no ST segment elevation, no ST segment depression, no significant T-waves. External Record Review External record reviewed: Office record Prescription Management I considered prescription management with: Other (Flecainide 50 mg in the morning and 100 mg at night) Chronic Conditions Patient?s care impacted by: Other (Paroxysmal atrial fibrillation) Discharge Plan Discharge Clinical Impression: Paroxysmal atrial fibrillation, Chest pain Patient Disposition: Home, Self-Care Instructions: A-fib (Atrial Fibrillation) (ED) Additional Instructions: Your blood work was normal which is reassuring. Here in the emergency department you were in atrial fibrillation in your rate was ranging from 90-160 beats per minute. You then spontaneously went into a normal rhythm. You keep going in and out of atrial fibrillation and I want to try to prevent this from happening by increasing your flecainide. Take flecainide 50 mg pills, 1 pill in the morning and 2 pills 12 hours later. Continue taking your metoprolol ER 25 mg in the morning. Call Dr. Andrew's office for follow-up appointment within 1-2 weeks to follow- up evaluation Follow-up with your doctor in 2 days. Please return to the emergency department if your symptoms get worse or if you develop any symptoms that are concerning to you. Prescriptions: New flecainide 50 mg tablet See Rx Instructions .ROUTE .COMPLEX Qty: 90 3RF Rx Instructions: Take 1 pill (50 mg) in the morning and 2 pills (100 mg) at night No Action flecainide 50 mg tablet 50 mg PO BID 90 Days Qty: 180 3RF metoprolol succinate 25 mg tablet extended release 24 hr 25 mg PO DAILY Qty: 90 3RF albuterol sulfate 90 mcg/actuation HFA aerosol inhaler 2 puff inhalation Q4-6H PRN (Reason: shortness of breath or wheezing) Qty: 8.5 0RF ibuprofen 600 mg tablet 600 mg PO TID PRN (Reason: fever or pain) Qty: 20 0RF lorazepam [Ativan] 0.5 mg tablet 0.5 mg PO BID PRN (Reason: anxiety) Qty: 10 0RF Referrals: Ciro Andrew MD [Physician] - 1 week (Paroxysmal atrial fibrillation, chest pain, spontaneously converted in the ED. I increased his flecainide from 50 mg b.i.d. to 50 mg in the morning and 100 mg at night.) Print Language: Tajik
[2024-06-20 20:29] LABS: MANUAL DIFF FLAG NO
[2024-06-20 20:30] VITALS: BP 128/69; PULSE 152; RESP 20; TEMP 36.7; O2SAT 97; BMI 36.8
[2024-06-20 20:30] LABS: Basophils Percent Auto 0.4 % (0-2); Eosinophils Absolute Auto 0.1 X10*3/uL (0.0-0.4); Eosinophils Percent Auto 1.1 % (0-4); Hematocrit 40.6 % (42.0-52.0); Hemoglobin 13.5 g/dl (14.0-18.0); Imm Gran Abs Auto 0.01 X10*3/uL (0.00-0.03); Imm Gran Pct Auto 0.1 % (0.0-0.4); Lymphocytes Absolute Auto 2.1 X10*3/uL (1.2-4.9); Lymphocytes Percent Auto 28.9 % (20-40); Mean Corpuscular HGB Conc 33.3 g/dl (31.0-36.0); Mean Corpuscular Hemoglobin 27.3 pg (27.0-33.0); Mean Platelet Volume 9.2 fL (9.4-12.4); Monocytes Absolute Auto 0.5 X10*3/uL (0.1-1.2); Monocytes Percent Auto 6.9 % (2-11); Neutrophils Absolute Auto 4.5 x10*3/uL (2.0-8.3); Neutrophils Percent Auto 62.6 % (45-73); Platelet Count 275 X10*3/uL (160-400); Red Blood Count 4.95 X10*6/uL (4.60-5.80); Red Cell Distribution Width 12.7 % (11.0-16.0); White Blood Count 7.1 X10*3/uL (4.8-10.8)
--- NOTE | 2024-06-20 20:38 | ECG_ITS ---
Test Reason : ARRYTHMIA Blood Pressure : */* mmHG Vent. Rate : 83 BPM Atrial Rate : 83 BPM P-R Int : 132 ms QRS Dur : 74 ms QT Int : 372 ms P-R-T Axes : 45 -1 36 degrees QTcB Int : 437 ms Normal sinus rhythm Normal ECG When compared with ECG of 20-Jun-2024 19:58, Sinus rhythm has replaced Atrial flutter Vent. rate has decreased by 56 bpm Referred By: Juma Dimas Electronically Signed By: NILAM PAYNE
--- NOTE | 2024-06-20 20:40 | PC.NURSE ---
Pt A&Ox3, HR during triage noted to be 140s-160s. Provider at bedside. HR noted to be in the mid 80s, EKG obtained, noted to be in SNR.
[2024-06-20 20:44] LABS: Alanine Aminotransferase 33 U/L (0-40); Albumin Level 4.4 g/dL (3.5-5.0); Alkaline Phosphatase 54 U/L (39-117); Anion Gap 16 (12-20); Aspartate Amino Transferase 28 U/L (5-37); Bilirubin Total 0.4 mg/dL (0.0-1.0); Blood Urea Nitrogen 12 mg/dL (9-16); Calcium 9.4 mg/dL (8.4-10.2); Carbon Dioxide 24 mmol/L (22-29); Chloride 105 mmol/L (96-108); Creatinine Clr Calc Pharmacy 107.6; Estimated Glomerular Filt Rate > 60; Glucose Random 111 mg/dL (60-115); Potassium 3.7 mmol/L (3.3-5.1); Sodium 141 mmol/L (135-145); Total Protein 7.8 g/dL (6.5-8.0)
[2024-06-20 20:52] LABS: Troponin-I High Sensitivity < 2.7 ng/L (<3.5-35.0)
[2024-06-20 20:53] LABS: B Type Natriuretic Peptide 17 pg/mL (<100)
[2024-06-20 22:00] VITALS: BP 133/73; PULSE 62; RESP 20; O2SAT 96
[2024-06-20 23:04] VITALS: BP 133/73; PULSE 62; RESP 20; TEMP 36.7; O2SAT 96
== END 2024-06-20 23:05 | disposition home or self-care (01) ==
PROVIDERS: Emergency Provider Emergency Medicine Emergency Medical Services; PCP Internal Medicine
DX: I48.0 Paroxysmal atrial fibrillation (principal); I49.9 Cardiac arrhythmia, unspecified; R00.2 Palpitations; R07.89 Other chest pain; R42 Dizziness and giddiness; R06.02 Shortness of breath; Z79.899 Other long term (current) drug therapy
CPT/HCPCS: 36415; 80053; 83880; 84484; 85025; 93005; 99283; 99284

== ENCOUNTER → 2024-06-20 19:53 | Outpatient (BNV) | payer OTHER, SELFPAY | PROVIDERS: Emergency Provider Emergency Medicine Emergency Medical Services; PCP Internal Medicine; Visit Provider Internal Medicine | DX: I44.0 Atrioventricular block, first degree (principal); I48.92 Unspecified atrial flutter | CPT/HCPCS: 93010 ==

== ENCOUNTER 2024-06-29 10:11 | Outpatient (AMB) | payer OTHER, SELFPAY ==
--- NOTE | 2024-06-29 10:28 | MHC.PC.OV ---
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: No Accompanied by: Self / Same As Patient Allergies No Known Allergies Allergy (Verified 06/29/24 10:36) Medication List - Last Reconciled 06/29/24 by JOSEFINA Cueva albuterol sulfate 90 mcg/actuation 2 puffs inhalation Q4-6H PRN flecainide Take 1 pill (50 mg) in the morning and 2 pills (100 mg) at night flecainide 50 mg PO BID 90 days ibuprofen 600 mg PO TID PRN lorazepam (Ativan) 0.5 mg PO BID PRN metoprolol succinate ER 25 mg PO DAILY Tobacco use date assessed: 06/29/24 Dental Screening Dental Screen Date: 06/29/24 Did you have a dental visit in the last 12 months?: Yes Did you have a dental problem in the last 6 months where you did not have access to dental care?: No Was dental information given to patient?: Patient has dentist HPI Establish care HPI Details Previous PCP: Dr. Grant Last visit:not in a while Last PE: september be 2015 Specialist: no OBGYN: N/A Past medical history: asthma, libra, bipolar 2-mild, new afib (around may,) Medications: Family HX: Problem: Patient is a 44-year-old male presenting to [facility] Patient reports that he used to see Dr. Grant years ago but has not been to a doctor in a long time His concerns are: libra-cpap at home, reports that his nose keep getting congested. reports nose fx when he was younger, but did not get any surgery and he is not sure if this is affecting him. reports that he has a sleep study coming up in August at home. He would like to see a specialist Asthma-reports that recently that he was diagnosed with Afib and his heart rate would fluctuates into the 120 to 130s after using his inhaler. Patient also reports using his inhaler more often than usual. He reports using the inhaler 4 times a day. The patient is currently only using a rescue inhaler. He reports taking deep breaths and squeezing his nose to get his heart rate down into the 80s. We will prescribe the patient long-acting inhaler to decrease the need for his rescue inhaler bipolar-reports that he used to see a therapist and that he stopped seeing them around 2015 or 2016. Reports that he has been trying to do everything through the natural route [place]ib[place] [facility] [place] that he kept going to the hosp, and they thought it was all anxiety related. Reports that he feel like he could not breathe at times. Patient reports that finally they placed him on EKG and he noticed that he was having AFib intermittently. And he was placed on flecainide. The patient is currently on flecainide 50 mg b.i.d. Insomnia: The patient reports insomnia, reports that his heartburn to fall asleep. Discussed with the patient that this is probably due to his LIBRA, but we will also try the patient on trazodone 50 mg at bedtime p.r.n. and refer the patient to sleep Medicine Blurry vision: The patient reports that he could see okay far distance but his eyes gets blurry when he tries to read close up. We will refer the patient to an digital computer systems analyst REPLACED BY [facility] Medical History (Updated 06/30/24 @ 08:30 by JOSEFINA Cueva) Anxiety Atrial fibrillation COVID-19 Obese Asthma Family History Family/Other Lung cancer Social History Housing: Apartment Alcohol intake: former Patient Tobacco Use Status: Never used Tobacco e-Cigarette/Vaping Use: Never Used Second Hand Smoke Exposure: No Substance Use Type: Caffiene service: No Current occupational status: employed Current occupational exposures/hazards: No Cognitive needs: No Hearing needs: No Vision needs: No Questionnaire PHQ-9 Over the last 2 weeks, how often have you been bothered by any of the following problems? 1. Little interest or pleasure in doing things: more than half the days 2. Feeling down, depressed, or hopeless: more than half the days 3. Trouble falling or staying asleep, or sleeping too much: several days 4. Feeling tired or having little energy: more than half the days 5. Poor appetite or overeating: not at all 6. Feeling bad about yourself - or that you are a failure or have let yourself or your family down: several days 7. Trouble concentrating on things, such as reading the newspaper or watching television: several days 8. Moving or speaking so slowly that other people could have noticed. Or the opposite - being so fidgety or restless that you have been moving around a lot more than usual: several days 9. Thoughts that you would be better off or of hurting yourself in some way: not at all Total score: 10 Depression Screening Interpretation: Positive Depression Screening Done: Yes 05191 - PHQ-9 Billing: Yes Source: Developed by Drs. Kevin Waller, Kathrin Hahn, Neal Morelos and colleagues, with an educational rene from [employer]. Thrive Questionnaire Date Thrive assessed: 06/29/24 I am a: Patient What is your living situation today?: I have a place to live, but I am worried about losing it in the future Within the past 12 months, did the food you bought not last and you didn't have the money to get more?: Sometimes True Within the past 12 months, did you worry whether your food would run out before you got money to buy more?: Sometimes True Do you have trouble paying for medicines?: Yes Do you have trouble getting transportation to medical appointments?: No Do you have trouble paying your heating and electricity bill?: No Do you have trouble taking care of your child, family member or friend?: No Do you have trouble with day-to-day activities such as bathing, preparing meals, shopping, managing finances, etc.?: No Are you currently unemployed and looking for a job?: No Are you interested in more education?: Yes Please select the resources that you would like help with: Housing/Halfway, Daily support and Education Currently or been in a relationship where the following occur: No concerns reported THRIVE Score: 3 AUDIT C Alcohol Use Questionnaire (AUDIT-C) 1. How often do you have a drink containing alcohol?: Never 3. How often do you have six or more drinks on one occasion?: Never Total Score: 0 CAM-7 AMB Questionnaire CAM-7 Date CAM - 7 assessed: 02/25/25 Feeling nervous, anxious, or on edge: 2 = More than half the days Not being able to stop or control worryin = More than half the days Worrying too much about different things: 2 = More than half the days Trouble relaxin = Not at all Being so restless that it is hard to sit still: 3 = Nearly every day Becoming easily annoyed or irritable: 1 = Several days Feeling afraid as if something awful might happen: 3 = Nearly every day Total CAM-7 score (0-4 normal; 5-9 mild; 10-14 moderate; 15-21 severe): 13 Source: Developed by Drs. Kevin Waller, Kathrin Hahn, Neal Morelos and colleagues, with an educational rene from [employer]. CAM-7 Assessment Billing CAM-7 Assessment Tool: CAM-7 Assessment 50095 Review of Systems Const Details: Denies chills, Denies fatigue, Denies fever(s), Denies headache(s) and Denies weakness HEENT Denies change in vision, Denies dizziness, Denies headache(s), Denies hearing loss, Denies nasal congestion, Denies sinus pain, Denies sinus pressure and Denies sore throat Card Denies chest pain, Denies lightheadedness, Denies dyspnea and +palpitations intermittently with increased rescue inhaler use Resp Denies cough, Denies dyspnea and +wheezing on and off GI Denies abdominal pain, Denies melena, Denies hematochezia, Denies change in bowel habits, Denies dyspepsia and Denies nausea Denies hematuria and Denies dysuria Musc Denies abnormal gait, Denies myalgias, Denies arthralgias, Denies numbness and Denies tingling Skin/Breast Denies rash, Denies unusual bruising and Denies wounds Neuro Denies abnormal gait, Denies dizziness, Denies headache(s), Denies memory loss, Denies numbness, Denies Sensory deficit (Neuro), Denies tingling and Denies weakness Psych + anxiety, +depression and Denies memory loss, + insomnia Endo Denies cold intolerance, Denies fatigue, Denies heat intolerance, Denies polydipsia and Denies polyuria Helder/Lymph Denies easy bleeding and Denies easy bruising Aller/Immun Denies wheezing Physical exam (Primary Care) Vital Signs: Last Vital Signs Pulse 63 06/29/24 10:29 BP 110/78 06/29/24 10:29 Pulse Ox 97 06/29/24 10:29 Oxygen Delivery Method Room Air 06/29/24 10:29 BMI result Body Mass Index 37.2 Tobacco/Smoking Status: Tobacco use Status Tobacco use date assessed 06/29/24 06/29/24 10:34 Patient Tobacco Use Status Never used Tobacco 06/29/24 10:34 e-Cigarette/Vaping Use Never Used 06/29/24 10:34 PHQ-9: PHQ-9 Score PHQ-9: Total score 10 06/30/24 08:06 Depression Screening Interpretation: Positive Thrive Assessment: Date of Thrive Assessment Date Thrive assessed 06/29/24 06/29/24 10:34 Currently or been in a relationship where the following occur: No concerns reported Const Other: General: no acute distress, well developed, alert and awake Nutritional Appearance: well nourished Orientation/consciousness: patient oriented x3 HENMT Head: Yes normocephalic and Yes atraumatic Ears: hearing grossly normal bilaterally and TM's normal bilaterally General nose exam: Normal external nose present and Normal nares present Mouth: Normal oral and palatal mucosa present and moist mucous membranes Teeth and gingiva: dentition normal Throat: Yes oropharynx normal Eyes Pupils: Equal, round and reactive pupils present and Pupil accommodation reflex normal EOM: EOMs intact bilaterally Neck Neck: Yes normal visual inspection, Yes no lymphadenopathy and Yes trachea midline Thyroid: Thyroid normal Carotids: no bruits Lymphatic: no lymphadenopathy noted Chest Chest palpation & inspection: normal inspection of the chest Resp Effort & Inspection: normal respiratory effort Auscultation: clear to auscultation bilaterally Cardio Rate: regular rate Rhythm: regular rhythm Heart sounds: S1 normal heart sound present, S2 normal heart sound present, no gallops, no murmurs and no rubs GI Palpation (GI): Abdomen is soft and nontender to palpation Auscultation: normal bowel sounds General: Yes no CVA tenderness Back/Spine/Pelvis Back: no CVA tenderness Cervical Spine: cervical ROM normal and No Cervical spine tenderness Thoracic/Lumbar Spine: No lumbar tenderness Skin General: warm and dry. Normal skin color. Normal skin turgor Lesions: no lesions Wounds: no wounds Nails: normal Neuro General: patient oriented x3, gait normal Cranial nerves: Yes Equal, round and reactive pupils present Cognition (Neuro): normal cognition Gait exam (Neuro): Normal gait present Extrem General: Yes normal to inspection, No edema and No calf tenderness Psych Appearance: grossly normal Affect: normal affect Attitude: cooperative Thought process: Normal thought process present Coding Level of Care Code New Pt Level 4 (30421) Diagnoses Severe persistent asthma, unspecified whether complicated J45.50 Asthma complication type: unspecified Asthma persistence: persistent Asthma severity: severe Blurry vision H53.8 Sleep apnea, unspecified type G47.30 Sleep apnea type: unspecified type Atrial fibrillation, unspecified type I48.91 Atrial fibrillation type: unspecified Anxiety F41.9 Bipolar affective disorder, current episode depressed, current episode severity unspecified F31.30 Current episode severity: unspecified Additional Codes CAM-7 Assessment Billing - CAM-7 Assessment Tool: CAM-7 Assessment 89231 ([id number]) PHQ-9 - 56936 - PHQ-9 Billing: Yes ([id number]) Time Spent (min) 42 Assessment & Plan Assessment & Plan (1) Asthma: Code(s): J45.909 - Unspecified asthma, uncomplicated Category: Medical Qualifiers: Asthma complication type: unspecified Asthma persistence: persistent Asthma severity: severe Qualified Code(s): J45.50 - Severe persistent asthma, uncomplicated Plan: Patient reports using his rescue inhaler more frequent than he did before. Reports that this causing a fluctuation in his heart rate. He is newly diagnosed with AFib. Will start the on Advair Diskus 100-50 mcg/dose 1 inhalation q.12 hours Continue rescue inhaler as needed. We will also refer the patient to pulmonology for further evaluation (2) Blurry vision: Code(s): H53.8 - Other visual disturbances Category: Medical Plan: Ophthalmology referral placed (3) Sleep apnea: Code(s): G47.30 - Sleep apnea, unspecified Category: Medical Qualifiers: Sleep apnea type: unspecified type Qualified Code(s): G47.30 - Sleep apnea, unspecified Plan: Reports a history of LIBRA, reports that he has not been as compliant with CPAP due to nasal congestion Reports that he has a home sleep study scheduled, but he would like to see a specialist Sleep medicine referral placed (4) Atrial fibrillation: Code(s): I48.91 - Unspecified atrial fibrillation Category: Medical Qualifiers: Atrial fibrillation type: unspecified Qualified Code(s): I48.91 - Unspecified atrial fibrillation Plan: New diagnosis of AFib. Reports that he was diagnosed in May 2024. Patient reports that he has been going in and out of the hospital for heart palpitation. Reports that it was deemed anxiety related but after placing him on a heart monitor they noticed that he was in and out of AFib. The patient is currently on metoprolol 25 mg daily and flecainide 50 mg b.i.d.. The patient was is controlled office and he is also in sinus rhythm (5) Anxiety: Code(s): F41.9 - Anxiety disorder, unspecified Category: Medical Plan: The patient reports that he has been dealing with this the natural route and has not seen anyone for his anxiety in a long time. Reports that his lorazepam 0.5 was prescribed to him in the emergency room He denies SI/HI (6) Bipolar affect, depressed: Code(s): F31.30 - Bipolar disorder, current episode depressed, mild or moderate severity, unspecified Category: Medical Qualifiers: Current episode severity: unspecified Qualified Code(s): F31.30 - Bipolar disorder, current episode depressed, mild or moderate severity, unspecified Plan: Stable: Reports that this is very mild and he has not had any issues. Reports that he is not interested in talking to anyone at this time Denies SI/HI Orders: Orders Comprehensive [place]. Panel Fast 06/29/24 F41.9 - Anxiety disorder, unspecified, G47.30 - Sleep apnea, unspecified, I48.91 - Unspecified atrial fibrillation, Z00.00 - Encounter for general adult medical examination without abnormal findings Lipid Panel 06/29/24 F41.9 - Anxiety disorder, unspecified, G47.30 - Sleep apnea, unspecified, I48.91 - Unspecified atrial fibrillation, Z00.00 - Encounter for general adult medical examination without abnormal findings Glucose Fasting 06/29/24 F41.9 - Anxiety disorder, unspecified, G47.30 - Sleep apnea, unspecified, I48.91 - Unspecified atrial fibrillation, Z00.00 - Encounter for general adult medical examination without abnormal findings UA CC w/rflx Micro + Cult 06/29/24 F41.9 - Anxiety disorder, unspecified, G47.30 - Sleep apnea, unspecified, I48.91 - Unspecified atrial fibrillation, Z00.00 - Encounter for general adult medical examination without abnormal findings Complete Blood Count Auto Diff 06/29/24 F41.9 - Anxiety disorder, unspecified, G47.30 - Sleep apnea, unspecified, I48.91 - Unspecified atrial fibrillation, Z00.00 - Encounter for general adult medical examination without abnormal findings Vitamin D 25-OH Total 06/29/24 F41.9 - Anxiety disorder, unspecified, G47.30 - Sleep apnea, unspecified, I48.91 - Unspecified atrial fibrillation, Z00.00 - Encounter for general adult medical examination without abnormal findings TSH reflex Free T4 06/29/24 F41.9 - Anxiety disorder, unspecified, G47.30 - Sleep apnea, unspecified, I48.91 - Unspecified atrial fibrillation, Z00.00 - Encounter for general adult medical examination without abnormal findings Referrals Ophthalmology Referral H53.8 - Other visual disturbances Sleep Medicine Referral G47.30 - Sleep apnea, unspecified Pulmonology Referral J45.909 - Unspecified asthma, uncomplicated Medications: New fluticasone propion-salmeterol 100-50 mcg/dose (Advair Diskus) 1 inh inhalation Q12H 60 ea 3RF trazodone 50 mg PO BEDTIME PRN 30 tabs 1RF sleep
[2024-06-29 10:29] VITALS: BP 110/78; PULSE 63; O2SAT 97; BMI 37.2
== END 2024-06-29 11:13 | disposition home or self-care (01) ==
PROVIDERS: PCP Internal Medicine
DX: I48.91 Unspecified atrial fibrillation (principal); J45.50 Severe persistent asthma, uncomplicated; F31.30 Bipolar disorder, current episode depressed, mild or moderate severity, unspecified; H53.8 Other visual disturbances; G47.30 Sleep apnea, unspecified; F41.9 Anxiety disorder, unspecified

== ENCOUNTER 2024-06-29 10:11 | Outpatient (REF) | payer OTHER, SELFPAY ==
[2024-06-29 11:41] LABS: MANUAL DIFF FLAG NO
[2024-06-29 12:03] LABS: Basophils Percent Auto 0.4 % (0-2); Eosinophils Absolute Auto 0.1 X10*3/uL (0.0-0.4); Eosinophils Percent Auto 1.8 % (0-4); Hematocrit 41.4 % (42.0-52.0); Hemoglobin 13.5 g/dl (14.0-18.0); Imm Gran Abs Auto 0.01 X10*3/uL (0.00-0.03); Imm Gran Pct Auto 0.2 % (0.0-0.4); Lymphocytes Absolute Auto 1.6 X10*3/uL (1.2-4.9); Lymphocytes Percent Auto 29.7 % (20-40); Mean Corpuscular HGB Conc 32.6 g/dl (31.0-36.0); Mean Corpuscular Hemoglobin 27.7 pg (27.0-33.0); Mean Platelet Volume 9.4 fL (9.4-12.4); Monocytes Absolute Auto 0.3 X10*3/uL (0.1-1.2); Neutrophils Absolute Auto 3.4 x10*3/uL (2.0-8.3); Neutrophils Percent Auto 61.9 % (45-73); Platelet Count 285 X10*3/uL (160-400); Red Blood Count 4.87 X10*6/uL (4.60-5.80); Red Cell Distribution Width 13.1 % (11.0-16.0); White Blood Count 5.5 X10*3/uL (4.8-10.8)
[2024-06-29 12:09] LABS: Appearance Urine Clear; Color Urine Yellow; Glucose Urine UA Negative (Negative); Leukocyte Esterase Urine Negative (Negative); Nitrite Urine Negative (Negative); PH 6.5 (5.0-9.0); Urine Blood Negative (Negative); Urine Ketones Negative (Negative); Urine Protein Negative (Neg-Trace)
[2024-06-29 12:46] LABS: Alanine Aminotransferase 23 U/L (0-40); Alkaline Phosphatase 48 U/L (39-117); Anion Gap 9 (12-20); Aspartate Amino Transferase 27 U/L (5-37); Bilirubin Total 0.3 mg/dL (0.0-1.0); Blood Urea Nitrogen 12 mg/dL (9-16); Calcium 9.1 mg/dL (8.4-10.2); Carbon Dioxide 30 mmol/L (22-29); Chloride 108 mmol/L (96-108); Cholesterol 169 mg/dL (<200); Estimated Glomerular Filt Rate > 60; Glucose Fasting 105 mg/dL (60-99); HDL Cholesterol 34 mg/dL (>40); LDL Cholesterol Calculated 108 mg/dL (<100); Potassium 4.3 mmol/L (3.3-5.1); Sodium 143 mmol/L (135-145); Total Protein 7.2 g/dL (6.5-8.0); Triglycerides 138 mg/dL (<150)
[2024-06-29 12:48] LABS: TSH reflex Free T4 1.75 uIU/mL (0.32-4.0); Vitamin D 25-OH Total 55.1 ng/mL (>30)
== END 2024-06-29 10:12 | disposition home or self-care (01) ==
LOC: HO.LAB 10:11
PROVIDERS: PCP Internal Medicine
DX: J45.50 Severe persistent asthma, uncomplicated (principal); H53.8 Other visual disturbances; G47.30 Sleep apnea, unspecified; I48.91 Unspecified atrial fibrillation; F41.9 Anxiety disorder, unspecified; F31.30 Bipolar disorder, current episode depressed, mild or moderate severity, unspecified; Z79.899 Other long term (current) drug therapy; Z00.00 Encounter for general adult medical examination without abnormal findings
CPT/HCPCS: 36415; 80053; 80061; 81003; 82306; 84443; 85025; 96127

== ENCOUNTER → 2024-07-05 10:13 | Outpatient (REF) | payer OTHER, SELFPAY ==
--- NOTE | 2024-07-05 10:16 | CA_ITS ---
Acquisition Time: 2024-07-05 11:00:20 Total Exercise Time: 00:09:00 Test Indications: CP Medications: SEE H&P Protocol: ELVER Max HR: 151 BPM 86% of Pred: 174 BPM Max BP: 150/90 mmHG Max Work Load: 10.1 METS Exercise Stress Test with exercise 9 mins of Elver Protocol, achieving 86% MPHR, with reports of moderate SOB, no chest discomfort, with isolated PVCs, with normotensive response to exercise. Without EKG changes meeting criteria for ischemia. Echo images obtained by tech at rest and post peak exercise. Definity contrast utilized. In recovery, breathing returned to baseline. Test reviewed with Dr. Landry. Referred By: Luba Wang Electronically Signed By: Ramone Cross
== END ==
LOC: HO.CARD 10:13
PROVIDERS: PCP Internal Medicine; Visit Provider Nurse Practitioner Family
DX: I48.91 Unspecified atrial fibrillation (principal)
CPT/HCPCS: 93242; 93350; Q9957

== ENCOUNTER → 2024-07-05 10:16 | Outpatient (BNV) | payer OTHER, SELFPAY | PROVIDERS: PCP Internal Medicine | DX: R94.31 Abnormal electrocardiogram [ECG] [EKG] (principal); R06.02 Shortness of breath | CPT/HCPCS: 93016; 93018; 93350; 93352 ==

== ENCOUNTER 2024-07-09 08:12 | Emergency (ER) | payer OTHER, SELFPAY ==
--- NOTE | 2024-07-09 | ECG_ITS ---
Test Reason : A-FIB Blood Pressure : */* mmHG Vent. Rate : 112 BPM Atrial Rate : * BPM P-R Int : * ms QRS Dur : 76 ms QT Int : 334 ms P-R-T Axes : * -14 6 degrees QTcB Int : 455 ms Atrial fibrillation with rapid ventricular response Abnormal ECG When compared with ECG of 20-Jun-2024 20:39, Atrial fibrillation has replaced Sinus rhythm Referred By: Generic ED Physician Electronically Signed By: ERNA LEWIS MD
[2024-07-09 08:26] VITALS: BP 131/96; PULSE 68; RESP 16; TEMP 36.1; O2SAT 98; BMI 36.6
--- NOTE | 2024-07-09 08:35 | ECG_ITS ---
Test Reason : A-FIB Blood Pressure : */* mmHG Vent. Rate : 66 BPM Atrial Rate : 66 BPM P-R Int : 132 ms QRS Dur : 72 ms QT Int : 402 ms P-R-T Axes : 62 5 22 degrees QTcB Int : 421 ms Normal sinus rhythm Normal ECG When compared with ECG of 09-Jul-2024 08:21, Sinus rhythm has replaced Atrial fibrillation Vent. rate has decreased by 46 bpm Referred By: Nolan Teran Electronically Signed By: ERNA LEWIS MD
--- NOTE | 2024-07-09 09:09 | ED.GENADULT ---
HPI - General Adult General Chief complaint: Arrhythmia/Palpitations Stated complaint: AFIB? Time Seen by Provider: 07/09/24 09:08 Source: patient, RN notes reviewed and old records reviewed Mode of arrival: ambulatory Limitations: no limitations History of Present Illness ED Provider: Janell [facility] narrative: Patient is a 44-year-old male with history of paroxysmal afib on metoprolol and flecainide, sleep apnea, asthma, obesity presenting to the emergency department with complaint chest tightness and palpitations which woke him from sleep at 6:00 a.m. today. States he tried his typical methods to break his AFib such as bearing down, deep breathing techniques, etc.. Recently had a Holter monitor which was discontinued yesterday. Is being followed by Dr. Andrew and Luba Wang for cardiology, had a stress test and echo on Friday which he was told were normal. While in the waiting room, states that his symptoms resolved and he re-presented to triage and had repeat EKG which showed normal sinus rhythm. Was told at last ED visit to increase his flecainide to 50qam, 100qhs, however, patient felt this increased his chest tightness and palpitations, so he went back to 50mg BID. He also felt that taking 50mg of metoprolol succinate was causing adverse symptoms in the morning, so without consulting cardiology, began taking 25mg QAM and 25mg QHS. complaint: palpitations, chest tightness Onset (ago): hour(s) Location: chest Radiation: non-radiation Pain Consistency: now resolved Treatments prior to arrival: other Related Data Previous Rx's ?Medication ?Instructions ?Recorded albuterol sulfate 90 mcg/actuation 2 puff inhalation Q4-6H PRN 06/01/21 aerosol inhaler shortness of breath or wheezing #8.5 grams ibuprofen 600 mg tablet 600 mg PO TID PRN fever or pain 05/23/24 #20 tabs lorazepam 0.5 mg tablet (Ativan) 0.5 mg PO BID PRN anxiety #10 tabs 06/08/24 flecainide 50 mg tablet 50 mg PO BID 90 days #180 tabs 06/10/24 metoprolol succinate 25 mg 25 mg PO DAILY #90 tabs 06/10/24 tablet,extended release 24 hr flecainide 50 mg tablet See Rx Instructions .Route 06/20/24 .COMPLEX #90 tabs fluticasone 100 mcg-salmeterol 50 1 inh inhalation Q12H #60 ea 06/29/24 mcg/dose blistr powdr for inhalation (Advair Diskus) trazodone 50 mg tablet 50 mg PO BEDTIME PRN sleep #30 tabs 06/29/24 Allergies Allergy/AdvReac Type Severity Reaction Status Date / Time No Known Allergies Allergy Verified 07/09/24 08:26 Review of Systems Review of Systems: As per HPI Yes all other systems are reviewed and are negative [facility] Past Medical History Medical History (Updated 07/09/24 @ 12:52 by Carlie Maciel NP) Anxiety Atrial fibrillation COVID-19 Obese Asthma Family History Family History Family/Other Lung cancer Social History Social History Housing: Apartment Alcohol intake: former Patient Tobacco Use Status: Never used Tobacco e-Cigarette/Vaping Use: Never Used Second Hand Smoke Exposure: No Substance Use Type: Caffiene Advance Directives: No Advance Directives Information Provided: Yes Do you have a plan to hurt others: No Plan service: No Current occupational status: employed Current occupational exposures/hazards: No Cognitive needs: No Hearing needs: No Vision needs: No Physical Exam ED Vital Signs: Vital Signs - 24 hr 07/09/24 08:26 07/09/24 11:40 07/09/24 11:41 Temperature 97.0 F Pulse Rate 68 54 54 Respiratory Rate 16 18 Blood Pressure 131/96 H 107/61 107/61 Pulse Oximetry 98 100 Oxygen Delivery Method Room Air Room Air 07/09/24 11:42 07/09/24 11:43 Temperature Pulse Rate 53 59 Respiratory Rate Blood Pressure 133/71 122/80 Pulse Oximetry Oxygen Delivery Method BMI result Body Mass Index 36.6 Vital signs have been reviewed and appear to be correct. Blood pressure normal. Heart rate normal. Respiratory rate normal. Temperature normal. Oxygen saturation normal. Const General: cooperative, healthy appearing and no acute distress Orientation/consciousness: oriented to person, oriented to place, oriented to time and patient oriented x3 Limitations: no limitations HENMT Head: Yes normocephalic and Yes atraumatic Ears: external ears normal General nose exam: Normal external nose present Face and sinus: Yes face symmetric Mouth: oropharynx normal and moist mucous membranes Throat: Yes uvula midline Eyes Pupils: Equal, round and reactive pupils present Neck Neck: Yes normal visual inspection and Yes supple Resp Effort & Inspection: normal respiratory effort and able to speak in complete sentences Auscultation: clear to auscultation bilaterally Cardio Rate: regular rate Rhythm: regular rhythm Heart sounds: S1 normal heart sound present and S2 normal heart sound present GI Palpation (GI): Soft to palpation and nontender Auscultation: normoactive bowel sounds General: Yes no CVA tenderness Back/Spine/Pelvis Back: no CVA tenderness Skin General skin exam: elasticity normal and turgor normal Neuro General: oriented to person, oriented to place, oriented to time, patient oriented x3, moves all extremities, no focal motor deficits and CN's II-XI intact bilaterally Cranial nerves: Yes Equal, round and reactive pupils present Cognition (Neuro): normal cognition Extrem General: Yes full ROM, Yes no pedal edema and Yes no calf tenderness Psych Mental Status: mental status grossly normal Affect: normal affect Thought process: Normal thought process present Medical Decision Making Medical Decision Making [facility] Narrative: Patient is a 44-year-old male with history of paroxysmal afib on metoprolol and flecainide, sleep apnea, asthma, obesity presenting to the emergency department with complaint chest tightness and palpitations which woke him from sleep at 6:00 a.m. today. On exam patient is awake, A+Ox3, VS WNL, afebrile, normal neurological exam without focal deficits, physical exam findings as above. Given reported symptoms and physical exam findings, initial differential includes but is not limited to cardiac arrhythmia, electrolyte abnormality, viral illness, dehydration. Labs notable for negative troponin x2, otherwise unremarkable. Patient has remained in NSR throughout ED stay. No orthostatic intolerance. Case discussed with Dr. Landry, cardiology, who recommends that patient increase his flecainide to 100mg BID. Results and plan discussed with patient and all questions answered. Instructed patient to follow-up with Dr. Andrew. Return precautions discussed. Patient verbalized understanding of and agreement with plan. Differential Diagnosis Differential Diagnoses: The differential diagnosis associated with the presentation includes as per [facility] Admission/Observation Consideration of admission/observation: Escalation of care including admission/observation considered Patient would have been admitted to the hospital had their work up had any findings where hospital admission was appropriate and their clinical presentation warranted hospital admission. Consult Healthcare Provider Management of the patient was discussed with: Information Architect (Dr. Landry) Lab Data [facility] Lab Attestation statement: I reviewed the patient's lab results. As per [facility] 07/09/24 09:45 07/09/24 09:45 Labs: Lab Results 07/09/24 07/09/24 Range/Units 09:45 11:48 WBC 5.2 (4.8-10.8) X10*3/uL RBC 4.56 L (4.60-5.80) X10*6/uL Hgb 12.6 L (14.0-18.0) g/dl Hct 38.8 L (42.0-52.0) % MCV 85.1 (80.0-98.0) fL MCH 27.6 (27.0-33.0) pg MCHC 32.5 (31.0-36.0) g/dl RDW 13.3 (11.0-16.0) % Plt Count 236 (160-400) X10*3/uL MPV 9.4 (9.4-12.4) fL Immature Gran % (Auto) 0.4 (0.0-0.4) % Neut % (Auto) 64.7 (45-73) % Lymph % (Auto) 26.5 (20-40) % [place] % (Auto) 6.8 (2-11) % Eos % (Auto) 1.2 (0-4) % Baso % (Auto) 0.4 (0-2) % Lymph # (Auto) 1.4 (1.2-4.9) X10*3/uL [place] # (Auto) 0.4 (0.1-1.2) X10*3/uL Eos # (Auto) 0.1 (0.0-0.4) X10*3/uL Baso # (Auto) 0.0 (0.0-0.2) X10*3/uL Abs Immat Gran (auto) 0.02 (0.00-0.03) X10*3/uL Absolute Neuts (auto) 3.4 (2.0-8.3) x10*3/uL Absolute Nucleated RBC 0.000 (0.0-0.012) X10*3/uL Nucleated RBC % (auto) 0.0 (0.0-0.2) /100WBC Sodium 140 (135-145) mmol/L Potassium 4.3 (3.3-5.1) mmol/L Chloride 110 H (96-108) mmol/L Carbon Dioxide 28 (22-29) mmol/L Anion Gap 6 L (12-20) BUN 13 (9-16) mg/dL Creatinine 0.94 (0.5-1.4) mg/dL Estim Creat Clear Calc 117.6 Estimated GFR > 60 Random Glucose 107 (60-115) mg/dL Calcium 8.6 (8.4-10.2) mg/dL Magnesium 1.9 (1.6-2.6) mg/dL Total Bilirubin 0.4 (0.0-1.0) mg/dL AST 16 (5-37) U/L ALT 24 (0-40) U/L Alkaline Phosphatase 46 (39-117) U/L Troponin I High Sens < 2.7 < 2.7 (<3.5-35.0) ng/L Total Protein 6.6 (6.5-8.0) g/dL Albumin 3.7 (3.5-5.0) g/dL Independent Interpretation I performed an independent interpretation of an: EKG ( First EKG shows AFib with RVR, rate 112 beats per minute, normal QTC; repeat EKG shows normal sinus rhythm, rate 66 beats per minute, normal AK interval and QTC) External Record Review External record reviewed: Inpatient record, Office record and Outpatient record Discharge Plan Discharge Clinical Impression: Paroxysmal A-fib Patient Disposition: Home, Self-Care Instructions: A-fib (Atrial Fibrillation) (DC) Additional Instructions: You were evaluated in the emergency department today for chest pain and palpitations due to atrial fibrillation. Your cardiac rhythm spontaneously returned back to normal sinus rhythm while here. Cardiology is recommending that you increase your flecainide dose to 100mg twice daily and follow up with the cardiology office this week. Continue all other medications as previously prescribed. Return to the emergency department if you develop worsening chest pain, difficulty breathing, dizziness, lightheadedness, fainting, or any other new or concerning symptoms. Prescriptions: No Action flecainide 50 mg tablet 50 mg PO BID 90 Days Qty: 180 3RF metoprolol succinate 25 mg tablet extended release 24 hr 25 mg PO DAILY Qty: 90 3RF albuterol sulfate 90 mcg/actuation HFA aerosol inhaler 2 puff inhalation Q4-6H PRN (Reason: shortness of breath or wheezing) Qty: 8.5 0RF ibuprofen 600 mg tablet 600 mg PO TID PRN (Reason: fever or pain) Qty: 20 0RF lorazepam [Ativan] 0.5 mg tablet 0.5 mg PO BID PRN (Reason: anxiety) Qty: 10 0RF flecainide 50 mg tablet See Rx Instructions .ROUTE .COMPLEX Qty: 90 3RF Rx Instructions: Take 1 pill (50 mg) in the morning and 2 pills (100 mg) at night fluticasone propion-salmeterol [Advair Diskus] 100-50 mcg/dose blister with device 1 inh inhalation Q12H Qty: 60 3RF trazodone 50 mg tablet 50 mg PO BEDTIME PRN (Reason: sleep) Qty: 30 1RF Stand Alone Forms: Work/School Release Print Language: Kinyarwanda
[2024-07-09 09:49] LABS: MANUAL DIFF FLAG NO
[2024-07-09 09:54] LABS: Basophils Percent Auto 0.4 % (0-2); Eosinophils Absolute Auto 0.1 X10*3/uL (0.0-0.4); Eosinophils Percent Auto 1.2 % (0-4); Hematocrit 38.8 % (42.0-52.0); Hemoglobin 12.6 g/dl (14.0-18.0); Imm Gran Abs Auto 0.02 X10*3/uL (0.00-0.03); Imm Gran Pct Auto 0.4 % (0.0-0.4); Lymphocytes Absolute Auto 1.4 X10*3/uL (1.2-4.9); Lymphocytes Percent Auto 26.5 % (20-40); Mean Corpuscular HGB Conc 32.5 g/dl (31.0-36.0); Mean Corpuscular Hemoglobin 27.6 pg (27.0-33.0); Mean Corpuscular Volume 85.1 fL (80.0-98.0); Mean Platelet Volume 9.4 fL (9.4-12.4); Monocytes Absolute Auto 0.4 X10*3/uL (0.1-1.2); Monocytes Percent Auto 6.8 % (2-11); Neutrophils Absolute Auto 3.4 x10*3/uL (2.0-8.3); Neutrophils Percent Auto 64.7 % (45-73); Platelet Count 236 X10*3/uL (160-400); Red Blood Count 4.56 X10*6/uL (4.60-5.80); Red Cell Distribution Width 13.3 % (11.0-16.0); White Blood Count 5.2 X10*3/uL (4.8-10.8)
[2024-07-09 10:07] LABS: Alanine Aminotransferase 24 U/L (0-40); Albumin Level 3.7 g/dL (3.5-5.0); Alkaline Phosphatase 46 U/L (39-117); Anion Gap 6 (12-20); Aspartate Amino Transferase 16 U/L (5-37); Bilirubin Total 0.4 mg/dL (0.0-1.0); Blood Urea Nitrogen 13 mg/dL (9-16); Calcium 8.6 mg/dL (8.4-10.2); Carbon Dioxide 28 mmol/L (22-29); Chloride 110 mmol/L (96-108); Creatinine Clr Calc Pharmacy 117.6; Estimated Glomerular Filt Rate > 60; Glucose Random 107 mg/dL (60-115); Magnesium 1.9 mg/dL (1.6-2.6); Potassium 4.3 mmol/L (3.3-5.1); Sodium 140 mmol/L (135-145); Total Protein 6.6 g/dL (6.5-8.0)
[2024-07-09 10:15] LABS: Troponin-I High Sensitivity < 2.7 ng/L (<3.5-35.0)
[2024-07-09 11:40] VITALS: BP 107/61; PULSE 54; RESP 18; O2SAT 100
[2024-07-09 11:41] VITALS: BP 107/61; PULSE 54
[2024-07-09 11:42] VITALS: BP 133/71; PULSE 53
[2024-07-09 11:43] VITALS: BP 122/80; PULSE 59
[2024-07-09 12:41] LABS: Troponin-I High Sensitivity < 2.7 ng/L (<3.5-35.0)
[2024-07-09 13:10] VITALS: BP 122/80; PULSE 59; RESP 16; TEMP 36.9; O2SAT 96
== END 2024-07-09 13:10 | disposition home or self-care (01) ==
PROVIDERS: Registered Nurse Emergency; Emergency Provider Emergency Medicine; PCP Internal Medicine
DX: I48.0 Paroxysmal atrial fibrillation (principal); J45.909 Unspecified asthma, uncomplicated; Z79.899 Other long term (current) drug therapy
CPT/HCPCS: 36415; 80053; 83735; 84484; 85025; 93005; 99283; 99284

== ENCOUNTER → 2024-07-09 08:21 | Outpatient (BNV) | payer OTHER, SELFPAY | PROVIDERS: Emergency Provider Emergency Medicine; PCP Internal Medicine; Visit Provider Internal Medicine Cardiovascular Disease | DX: I48.91 Unspecified atrial fibrillation (principal) | CPT/HCPCS: 93010 ==

== ENCOUNTER 2024-07-20 09:38 | Outpatient (AMB) | payer OTHER, SELFPAY ==
--- NOTE | 2024-07-20 09:44 | MHC.PC.OV ---
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 Required: No Accompanied by: Self / Same As Patient Allergies No Known Allergies Allergy (Verified 07/20/24 10:30) Medication List - Last Reconciled 07/20/24 by JOSEFINA Cueva albuterol sulfate 90 mcg/actuation 2 puffs inhalation Q4-6H PRN flecainide Take 2 pills (100 mg) in the morning and 2 pills (100 mg) at night fluticasone propion-salmeterol 100-50 mcg/dose (Advair Diskus) 1 inh inhalation Q12H ibuprofen 600 mg PO TID PRN lorazepam (Ativan) 0.5 mg PO BID PRN metoprolol succinate ER 25 mg PO DAILY trazodone 50 mg PO BEDTIME PRN Tobacco use date assessed: 07/20/24 Dental Screening Dental Screen Date: 07/20/24 Did you have a dental visit in the last 12 months?: No Did you have a dental problem in the last 6 months where you did not have access to dental care?: No HPI annual/lab review HPI Details Dentist: no-will be making appt Eye: up coming appt Snellen: Right: Left: Corrected vision: no STI screening:n/a Colonoscopy: Pap Smer:n/a PHQ-9: Flu:declines COVID:decline Tdap: will give in office Diet:regular Exercise: none Nausea and epigastric -GERD WILL start omeprazole 40 mg constipation: already taking colace otc, add metamucil and increase fluids intake Iroin panel done as soon as possible Will be interested in seeing therapist-will send him some more lorazepam 0.5 mg PFSH Medical History (Updated 07/20/24 @ 10:48 by JOSEFINA Cueva) Anemia Anxiety Atrial fibrillation COVID-19 Obese Asthma Surgical History Hx of appendectomy Family History Family/Other Lung cancer Social History Housing: Apartment Alcohol intake: former Patient Tobacco Use Status: Never used Tobacco e-Cigarette/Vaping Use: Never Used Second Hand Smoke Exposure: No Substance Use Type: Caffiene service: No Current occupational status: employed Current occupational exposures/hazards: No Cognitive needs: No Hearing needs: No Vision needs: No Questionnaire PHQ-9 Over the last 2 weeks, how often have you been bothered by any of the following problems? 1. Little interest or pleasure in doing things: several days 2. Feeling down, depressed, or hopeless: several days 3. Trouble falling or staying asleep, or sleeping too much: more than half the days 4. Feeling tired or having little energy: several days 5. Poor appetite or overeating: several days 6. Feeling bad about yourself - or that you are a failure or have let yourself or your family down: not at all 7. Trouble concentrating on things, such as reading the newspaper or watching television: not at all 8. Moving or speaking so slowly that other people could have noticed. Or the opposite - being so fidgety or restless that you have been moving around a lot more than usual: several days 9. Thoughts that you would be better off or of hurting yourself in some way: not at all Total score: 7 Depression Screening Interpretation: Positive Depression Screening Done: Yes 56169 - PHQ-9 Billing: Yes Source: Developed by Drs. Kevin Waller, Kathrin Hahn, Neal Morelos and colleagues, with an educational rene from [employer]. Thrive Questionnaire Date Thrive assessed: 07/20/24 I am a: Patient What is your living situation today?: I have a place to live, but I am worried about losing it in the future Within the past 12 months, did the food you bought not last and you didn't have the money to get more?: Sometimes True Within the past 12 months, did you worry whether your food would run out before you got money to buy more?: Sometimes True Do you have trouble paying for medicines?: Yes Do you have trouble getting transportation to medical appointments?: No Do you have trouble paying your heating and electricity bill?: No Do you have trouble taking care of your child, family member or friend?: No Do you have trouble with day-to-day activities such as bathing, preparing meals, shopping, managing finances, etc.?: No Are you currently unemployed and looking for a job?: No Are you interested in more education?: Yes Please select the resources that you would like help with: Housing/[facility], Daily support and Education Currently or been in a relationship where the following occur: No concerns reported THRIVE Score: 3 AUDIT C Alcohol Use Questionnaire (AUDIT-C) 1. How often do you have a drink containing alcohol?: Never 3. How often do you have six or more drinks on one occasion?: Never Total Score: 0 CAM-7 AMB Questionnaire CAM-7 Date CAM - 7 assessed: 07/20/24 Feeling nervous, anxious, or on edge: 1 = Several days Not being able to stop or control worryin = More than half the days Worrying too much about different things: 1 = Several days Trouble relaxin = More than half the days Being so restless that it is hard to sit still: 2 = More than half the days Becoming easily annoyed or irritable: 0 = Not at all Feeling afraid as if something awful might happen: 0 = Not at all Total CAM-7 score (0-4 normal; 5-9 mild; 10-14 moderate; 15-21 severe): 8 Source: Developed by Drs. Kevin Waller, Kathrin Hahn, Neal Morelos and colleagues, with an educational rene from [employer]. CAM-7 Assessment Billing CAM-7 Assessment Tool: CAM-7 Assessment 51506 Review of Systems Const Denies headache(s) Eyes Denies loss of vision ENT Denies vertigo, Denies dizziness, Denies headache(s) and Denies sore throat Card Denies chest pain, Denies leg edema and Denies lightheadedness Resp Denies cough, Denies hemoptysis and Denies wheezing GI Denies abdominal pain, Denies melena, Denies constipation, Denies diarrhea and Denies vomiting Denies dysuria, Denies urinary frequency and Denies urinary urgency Musc Denies arthralgias, Denies joint swelling, Denies numbness and Denies tingling Neuro Denies Abnormal speech present, Denies behavioral changes, Denies vertigo, Denies dizziness, Denies headache(s), Denies loss of vision, Denies memory loss, Denies numbness and Denies tingling Psych Denies anxiety, Denies behavioral changes, Denies depression, Denies memory loss and Denies panic attacks Helder/Lymph Denies easy bleeding and Denies easy bruising Aller/Immun Denies wheezing Physical exam (Primary Care) Vital Signs: Last Vital Signs Temp 98.8 F 07/20/24 09:45 Pulse 67 07/20/24 09:45 Resp 20 07/20/24 09:45 BP 114/70 07/20/24 09:45 Pulse Ox 97 07/20/24 09:45 Oxygen Delivery Method Room Air 07/20/24 09:45 BMI result Body Mass Index 36.4 Tobacco/Smoking Status: Tobacco use Status Tobacco use date assessed 07/20/24 07/20/24 10:09 Patient Tobacco Use Status Never used Tobacco 07/20/24 10:09 e-Cigarette/Vaping Use Never Used 07/20/24 10:09 PHQ-9: PHQ-9 Score PHQ-9: Total score 7 07/20/24 10:56 Depression Screening Interpretation: Positive Thrive Assessment: Date of Thrive Assessment Date Thrive assessed 07/20/24 07/20/24 10:09 Currently or been in a relationship where the following occur: No concerns reported Const General: healthy appearing, no acute distress, alert and awake Nutritional Appearance: well nourished Orientation/consciousness: oriented to person, oriented to place and oriented to time HENMT Ears: TM's normal bilaterally General nose exam: Normal nasal mucous membranes and turbinates present Eyes Conjunctivae: conjunctivae normal Sclerae: sclerae normal Pupils: Equal, round and reactive pupils present Neck Neck: Yes no lymphadenopathy and Yes no JVD Thyroid: Thyroid normal Carotids: no bruits Resp Effort & Inspection: normal respiratory effort and not tachypneic Auscultation: no crackles, no rales, no rhonchi and no wheezes Cardio Rate: regular rate Rhythm: regular rhythm Heart sounds: no murmurs and normal S1 and S2 GI Palpation (GI): Soft to palpation, nontender, no hepatomegaly and no splenomegaly Auscultation: normal bowel sounds Skin General skin exam: no rashes or lesions noted and dry skin Neuro General: oriented to person, oriented to place and oriented to time Cranial nerves: Yes Equal, round and reactive pupils present Speech: No Abnormal speech present Gait exam (Neuro): Normal gait present Motor exam (neuro): no tremor noted Extrem Right upper extremity: full ROM Left upper extremity: full ROM Right lower extremity: full ROM; no edema Left lower extremity: full ROM; no edema Psych Mental Status: mental status grossly normal Speech and movement: Normal speech and movement present Affect: normal affect Attitude: cooperative Thought process: Normal thought process present Immunizations Boostrix Tdap 2.5 Lf unit-8 mcg-5 Lf/0.5 mL intramuscular syringe Performing Provider: JOSEFINA Cueva [facility] Administered by: Ina Becerra CMA on 07/20/24 10:57 Dose Route Admin Location Dispensed Lot Number Expiration Date NDC Lidar Technician 0.5 mL IM Left Deltoid 0.5 mL [id number] 10/16/26 06113-892-43 [employer] VIS Given Date VIS Provided VIS Publication Date 07/20/24 Single Vaccine 24 Eligibility Eligibility Date Funding Source Not [facility] Eligible 07/20/24 Private Coding Diagnoses Annual physical exam Z00.00 Sleep apnea, unspecified type G47.30 Sleep apnea type: unspecified type Atrial fibrillation, unspecified type I48.91 Atrial fibrillation type: unspecified Anxiety F41.9 Blurry vision H53.8 Severe persistent asthma, unspecified whether complicated J45.50 Asthma complication type: unspecified Asthma persistence: persistent Asthma severity: severe Bipolar affective disorder, current episode depressed, current episode severity unspecified F31.30 Current episode severity: unspecified Anemia D64.9 Heart burn R12 Elevated LDL cholesterol level E78.00 Additional Codes CAM-7 Assessment Billing - CAM-7 Assessment Tool: CAM-7 Assessment 28359 ([id number]) PHQ-9 - 99166 - PHQ-9 Billing: Yes ([id number]) Assessment & Plan Assessment & Plan (1) Annual physical exam: Code(s): Z00.00 - Encounter for general adult medical examination without abnormal findings Category: Medical (2) Sleep apnea: Code(s): G47.30 - Sleep apnea, unspecified Category: Medical Qualifiers: Sleep apnea type: unspecified type Qualified Code(s): G47.30 - Sleep apnea, unspecified (3) Atrial fibrillation: Code(s): I48.91 - Unspecified atrial fibrillation Category: Medical Qualifiers: Atrial fibrillation type: unspecified Qualified Code(s): I48.91 - Unspecified atrial fibrillation (4) Anxiety: Code(s): F41.9 - Anxiety disorder, unspecified Category: Medical (5) Blurry vision: Code(s): H53.8 - Other visual disturbances Category: Medical (6) Asthma: Code(s): J45.909 - Unspecified asthma, uncomplicated Category: Medical Qualifiers: Asthma complication type: unspecified Asthma persistence: persistent Asthma severity: severe Qualified Code(s): J45.50 - Severe persistent asthma, uncomplicated (7) Bipolar affect, depressed: Code(s): F31.30 - Bipolar disorder, current episode depressed, mild or moderate severity, unspecified Category: Medical Qualifiers: Current episode severity: unspecified Qualified Code(s): F31.30 - Bipolar disorder, current episode depressed, mild or moderate severity, unspecified (8) Anemia: Code(s): D64.9 - Anemia, unspecified Category: Medical (9) Heart burn: Code(s): R12 - Heartburn Category: Medical (10) Elevated LDL cholesterol level: Code(s): E78.00 - Pure hypercholesterolemia, unspecified Category: Medical Orders: Orders IRON PROFILE Today D64.9 - Anemia, unspecified Comprehensive [place]. Panel Fast 3 Months D64.9 - Anemia, unspecified, E78.00 - Pure hypercholesterolemia, unspecified, F31.30 - Bipolar disorder, current episode depressed, mild or moderate severity, unspecified, F41.9 - Anxiety disorder, unspecified, G47.30 - Sleep apnea, unspecified, I48.91 - Unspecified atrial fibrillation UA CC w/rflx Micro + Cult 3 Months D64.9 - Anemia, unspecified, E78.00 - Pure hypercholesterolemia, unspecified, F31.30 - Bipolar disorder, current episode depressed, mild or moderate severity, unspecified, F41.9 - Anxiety disorder, unspecified, G47.30 - Sleep apnea, unspecified, I48.91 - Unspecified atrial fibrillation TDaP Immunization Today Z23 - Encounter for immunization Complete Blood Count Auto Diff 3 Months D64.9 - Anemia, unspecified, E78.00 - Pure hypercholesterolemia, unspecified, F31.30 - Bipolar disorder, current episode depressed, mild or moderate severity, unspecified, F41.9 - Anxiety disorder, unspecified, G47.30 - Sleep apnea, unspecified, I48.91 - Unspecified atrial fibrillation Lipid Panel 3 Months D64.9 - Anemia, unspecified, E78.00 - Pure hypercholesterolemia, unspecified, F31.30 - Bipolar disorder, current episode depressed, mild or moderate severity, unspecified, F41.9 - Anxiety disorder, unspecified, G47.30 - Sleep apnea, unspecified, I48.91 - Unspecified atrial fibrillation Vitamin D 25-OH Total 3 Months D64.9 - Anemia, unspecified, E78.00 - Pure hypercholesterolemia, unspecified, F31.30 - Bipolar disorder, current episode depressed, mild or moderate severity, unspecified, F41.9 - Anxiety disorder, unspecified, G47.30 - Sleep apnea, unspecified, I48.91 - Unspecified atrial fibrillation TSH reflex Free T4 3 Months D64.9 - Anemia, unspecified, E78.00 - Pure hypercholesterolemia, unspecified, F31.30 - Bipolar disorder, current episode depressed, mild or moderate severity, unspecified, F41.9 - Anxiety disorder, unspecified, G47.30 - Sleep apnea, unspecified, I48.91 - Unspecified atrial fibrillation Medications: New omeprazole 40 mg PO DAILY 60 caps 3RF R12 - Heartburn Boostrix Tdap (diphth,pertus(acell),tetanus) 0.5 mL IM ONCE 0.5 mL 0RF NS Z23 - Encounter for immunization Changed From flecainide Take 1 pill (50 mg) in the morning and 2 pills (100 mg) at night 90 tabs 3RF To flecainide Take 2 pills (100 mg) in the morning and 2 pills (100 mg) at night
[2024-07-20 09:45] VITALS: BP 114/70; PULSE 67; RESP 20; TEMP 37.1; O2SAT 97; BMI 36.4
== END 2024-07-20 11:06 | disposition home or self-care (01) ==
LOC: HO.HMCH 09:39
PROVIDERS: PCP Internal Medicine
DX: Z23 Encounter for immunization (principal)

== ENCOUNTER → 2024-07-20 09:38 | Outpatient (BNVA) | payer OTHER, SELFPAY | PROVIDERS: PCP Internal Medicine | DX: Z00.00 Encounter for general adult medical examination without abnormal findings (principal); Z23 Encounter for immunization; G47.30 Sleep apnea, unspecified; I48.91 Unspecified atrial fibrillation; F41.9 Anxiety disorder, unspecified; H53.8 Other visual disturbances; J45.50 Severe persistent asthma, uncomplicated; F31.30 Bipolar disorder, current episode depressed, mild or moderate severity, unspecified; D50.9 Iron deficiency anemia, unspecified; R12 Heartburn; E78.00 Pure hypercholesterolemia, unspecified; K59.00 Constipation, unspecified; Z79.899 Other long term (current) drug therapy | CPT/HCPCS: 90471; 90715; 96127 ==

== ENCOUNTER 2024-07-26 08:44 | Outpatient (AMB) | payer OTHER, SELFPAY ==
[2024-07-26 08:54] VITALS: BP 114/70; PULSE 68; BMI 36.3
--- NOTE | 2024-07-26 08:54 | A.OFFVIS_ITS ---
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 Allergies No Known Allergies Allergy (Verified 07/26/24 08:55) Medication List - Last Reconciled 07/26/24 by Luba Wang, MARCO-C albuterol sulfate 90 mcg/actuation 2 puffs inhalation Q4-6H PRN flecainide Take 2 pills (100 mg) in the morning and 2 pills (100 mg) at night fluticasone propion-salmeterol 100-50 mcg/dose (Advair Diskus) 1 inh inhalation Q12H ibuprofen 600 mg PO TID PRN lorazepam (Ativan) 0.5 mg PO BID PRN metoprolol succinate ER 25 mg PO DAILY omeprazole 40 mg PO DAILY trazodone 50 mg PO BEDTIME PRN HPI HPI [facility] [place] ER- Follow up/AFIB: Details: Livan is a 44-year-old male with past medical history of asthma, sleep apnea, obesity, newer paroxysmal atrial fibrillation who had break through afib on Metoprolol and Flecanide 50mg bid. His dose was recently increased to 100mg bid and he now presents for follow up. Today he reports he had recurrent episodes of PAF in the first few days following the medication increase. Since then he hasnt noticed the afib. He tracks his pulse using an O2 sat monitor. He did have some chest discomfort with the PAF but none when he is not in afib. His asthma has been controlled. No lightheadedness, presyncope, syncope. No leg edema. Describes himself as active throughout the day. Taking meds as directed. PFSH Medical History Anemia Anxiety Atrial fibrillation COVID-19 Obese Asthma Surgical History Hx of appendectomy Family History Family/Other Lung cancer Social History Housing: Apartment Alcohol intake: former Patient Tobacco Use Status: Never used Tobacco e-Cigarette/Vaping Use: Never Used Second Hand Smoke Exposure: No Substance Use Type: Caffiene service: No Current occupational status: employed Current occupational exposures/hazards: No Cognitive needs: No Hearing needs: No Vision needs: No Review of Systems Const All systems reviewed & are unremarkable except as noted in HPI and below ENT Denies dizziness Card Details: palpitations at times Denies chest pain, Denies chest pain at rest, Denies chest pain with activity, Denies rapid heart rate, Denies pedal edema, Denies edema, Denies leg edema, Denies lightheadedness, Denies palpitations, Denies dyspnea, Denies dyspnea on exertion and Denies orthopnea Resp Denies cough, Denies dyspnea and Denies dyspnea on exertion GI Denies hematochezia and Denies change in stool character Musc Denies abnormal gait, Denies muscle cramps, Denies muscle weakness, Denies numbness, Denies radiating pain into limb, Denies stiffness and Denies tingling Neuro Denies abnormal gait, Denies dizziness, Denies numbness and Denies tingling Endo Denies palpitations Physical Exam Vital Signs: Last Vital Signs Pulse 68 07/26/24 08:54 BP 114/70 07/26/24 08:54 BMI result Body Mass Index 36.3 Const General: cooperative, healthy appearing, comfortable and no acute distress Orientation/consciousness: patient oriented x3 Neck Neck: Yes normal visual inspection and Yes no JVD Resp Effort & Inspection: normal respiratory effort Auscultation: clear to auscultation bilaterally, no crackles, no rales, no rhonchi and no wheezes Cardio Rate: regular rate Rhythm: regular rhythm Heart sounds: S1 normal heart sound present, S2 normal heart sound present, no gallops, no murmurs and no rubs Peripheral pulses: Peripheral pulses 2+ throughout Neuro General: patient oriented x3 Extrem General: Yes normal to inspection, No no pedal edema and No calf tenderness Psych Appearance: grossly normal Mental Status: mental status grossly normal Speech and movement: Normal speech and movement present Office Procedures EKG Details: Today, read by me normal sinsu rhythm, rate 68, Qtc 431ms [id number], Complete Assessment & Plan Assessment & Plan (1) Paroxysmal A-fib: Code(s): I48.0 - Paroxysmal atrial fibrillation Category: Medical Plan: New finding of paroxysmal atrial fibrillation on ER visit 05/21/2024. For his AFib he was put on metoprolol for rate control and flecainide for rhythm control. Chads Vasc score of 0. He was not started on anticoagulation. Echo done on 05/21/2024 showed EF greater than 70%, no regional wall motion abnormalities, no significant valve issues, left atrium normal size. Stress echocardiogram done 07/05/2024 with exercise 9 minutes, moderate shortness of breath, no EKG changes and no echo evidence of ischemia. Holter monitor 07/05/2024 for 3 days shows sinus rhythm with average heart rate 59, 2 minute episode of PAF, rate 133, rare VE. He had recurrent AF with ED 07/09 evaluation and his Flecanide dose was increased to 100mg bid. EKG done today showing normal sinus rhythm, rate 68, QTC 437 milliseconds. AFib currently suppressed. He is interested in ablation. Will refer him to electrophysiology to further discuss atrial fibrillation ablation. At this time continue metoprolol and flecainide. Cardiology follow-up 3 months, sooner if needed. (2) Sleep apnea: Code(s): G47.30 - Sleep apnea, unspecified Category: Medical Qualifiers: Sleep apnea type: unspecified type Qualified Code(s): G47.30 - Sleep apnea, unspecified Plan: Home sleep study scheduled. He does have sleep apnea then he will be referred to pulmonology for his CPAP. Plan Time spent on chart review, documentation, interview and assessment Orders: Referrals Cardiac Electrophysiology Referral I48.0 - Paroxysmal atrial fibrillation Coding Level of Care Code Est Pt Level 4 (89507) Complex EM visit Add On G2211 Diagnoses Paroxysmal A-fib I48.0 Sleep apnea, unspecified type G47.30 Sleep apnea type: unspecified type CPT Codes EKG - CPT: 18756-[id number], Complete ([id number]) Time Spent (min) 30
== END 2024-07-26 09:21 | disposition home or self-care (01) ==
PROVIDERS: PCP Internal Medicine; Visit Provider Nurse Practitioner Family
DX: I48.0 Paroxysmal atrial fibrillation (principal); G47.30 Sleep apnea, unspecified
CPT/HCPCS: 93010; 99214

== ENCOUNTER → 2024-07-26 08:44 | Outpatient (BNVA) | payer OTHER, SELFPAY | PROVIDERS: PCP Internal Medicine; Visit Provider Nurse Practitioner Family | DX: I48.0 Paroxysmal atrial fibrillation (principal); E66.9 Obesity, unspecified; G47.30 Sleep apnea, unspecified; Z68.36 Body mass index [BMI] 36.0-36.9, adult; Z79.899 Other long term (current) drug therapy | CPT/HCPCS: 93005 ==

== ENCOUNTER 2024-07-30 08:44 | Outpatient (AMB) | payer OTHER, SELFPAY ==
[2024-07-30 08:48] VITALS: BP 118/80; PULSE 71; O2SAT 96; BMI 36.3
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
== END 2024-07-30 10:01 | disposition home or self-care (01) ==
LOC: HO.HSMS 08:45
PROVIDERS: PCP Internal Medicine; Visit Provider Physician Assistant Medical
DX: G25.81 Restless legs syndrome (principal); R12 Heartburn; I48.91 Unspecified atrial fibrillation; G47.30 Sleep apnea, unspecified; F41.9 Anxiety disorder, unspecified; R53.83 Other fatigue; G47.9 Sleep disorder, unspecified
CPT/HCPCS: 99214

== ENCOUNTER → 2024-08-04 10:55 | Outpatient (REF) | payer OTHER, SELFPAY | LOC: HO.SL 10:55 | PROVIDERS: Visit Provider Nurse Practitioner Family | DX: G47.19 Other hypersomnia (principal); G47.30 Sleep apnea, unspecified | CPT/HCPCS: 95806 ==

== ENCOUNTER → 2024-08-04 11:14 | Outpatient (BNV) | payer OTHER, SELFPAY | PROVIDERS: Visit Provider Psychiatry & Neurology Neurology | DX: G47.33 Obstructive sleep apnea (adult) (pediatric) (principal) | CPT/HCPCS: 95806 ==

== ENCOUNTER 2024-09-01 10:11 | Outpatient (AMB) | payer OTHER, SELFPAY ==
--- NOTE | 2024-09-01 10:48 | A.OFFVIS_ITS ---
Vital Signs 09/01/24 10:49 Height 5 ft 8 in Weight 235 lb BMI 35.7 BP 116/80 Blood Pressure Location Lt brachial Position Sitting Pulse 78 Pulse Source Pulse Oximeter Pulse Oximetry (%) 96 Oxygen Delivery Method Room Air Intake Visit Reasons: Asthma Intake Note: pt is here as a new patient for asthma, patient stated he has Sleep apnea, currently has a CPAP machine but unable to tolerate it Allergies No Known Allergies Allergy (Verified 09/01/24 11:36) Medication List - Last Reconciled 09/01/24 by Rose Obando MD albuterol sulfate 90 mcg/actuation 2 puffs inhalation Q4-6H PRN ferrous sulfate 325 mg PO DAILY flecainide 100 mg PO Q12H fluticasone propion-salmeterol 100-50 mcg/dose (Advair Diskus) 1 inh inhalation Q12H ibuprofen 600 mg PO TID PRN lorazepam (Ativan) 0.5 mg PO BID PRN metoprolol succinate ER 25 mg PO DAILY omeprazole 40 mg PO DAILY trazodone 50 mg PO BEDTIME PRN Do you need a note to return to daycare/school/sports/work: No HPI HPI Asthma: Details: Livan is a very pleasant 44-year-old here today as a new patient for a follow- up on his at home sleep study. He is referred by Cardiology to discuss about the treatment of sleep apnea. Has a history of mild intermittent bronchial asthma since childhood . he is currentlt on Wixela 100-50 one inh bid and occasionally uses albuterol rescue inhaler. Was diagnosed in June of 2024 with AFib and was started on Flecainide and metoprolol by Cardiology Has has had history of obstructive sleep apnea for about 10 years. Initially diagnosed with a home-based sleep study. Had a CPAP machine for about 10 years that he has been unable to use due to nasal congestion, feeling uncomfortable with the nasal or fullface mask. Has tried multiple nasal decongestants along with different CPAP mask with no improvement in symptoms. Has not used CPAP in many years but is now willing to try it again using a new mask due to diagnosis of AFib PFSH Medical History Anemia Anxiety Atrial fibrillation COVID-19 Obese Asthma Surgical History Hx of appendectomy Family History Family/Other Lung cancer Social History Housing: Apartment Alcohol intake: former Patient Tobacco Use Status: Never used Tobacco e-Cigarette/Vaping Use: Never Used Second Hand Smoke Exposure: No Substance Use Type: Caffiene service: No Current occupational status: employed Current occupational exposures/hazards: No Cognitive needs: No Hearing needs: No Vision needs: No Review of Systems Const All systems reviewed & are unremarkable except as noted in HPI and below Eyes Reports no additional complaints ENT Reports nasal congestion (Frequently especially if he tries to use the CPAP) Card Reports irregular heart rhythm (Recent history of paroxysmal atrial fib.) and Denies leg edema Resp Reports as per HPI GI Reports no additional complaints Reports no additional complaints Musc Reports no additional complaints Skin/Breast Reports system reviewed and no additional complaints, except as documented Neuro Reports no additional complaints Psych Reports no additional complaints Endo Reports no additional complaints Helder/Lymph Reports no additional complaints Physical Exam Vital Signs: Last Vital Signs Pulse 78 09/01/24 10:49 BP 116/80 09/01/24 10:49 Pulse Ox 96 09/01/24 10:49 Oxygen Delivery Method Room Air 09/01/24 10:49 BMI result Body Mass Index 35.7 Const General: healthy appearing (Except for being overweight), comfortable, no acute distress, alert and awake Orientation/consciousness: patient oriented x3 HEENT Head: Yes normal to inspection General nose exam: No nasal polyps present and No nasal discharge present Face and sinus: Yes sinuses nontender Mouth: oropharynx abnormals (Narrow and crowded, Mallampati scale 3) Throat: Yes posterior oropharynx normal Eyes General: appearance normal, both eyes and all related structures Neck Neck: Yes normal visual inspection, Yes no lymphadenopathy, Yes trachea midline and Yes no JVD Thyroid: Thyroid normal Resp Other: Lungs clear bilaterally, no wheezing or crepitations heard Effort & Inspection: normal respiratory effort Cardio Palpation: normal PMI Rate: regular rate Rhythm: regular rhythm Heart sounds: no gallops and no murmurs Peripheral pulses: Peripheral pulses 2+ throughout GI Palpation (GI): Soft to palpation, nontender, No hepatosplenomegaly present and no masses Auscultation: normal bowel sounds Back/Spine/Pelvis Thoracic/Lumbar Spine: thoracic and lumbar spine normal to inspection Skin General skin exam: no rashes or lesions noted Neuro General: patient oriented x3 and no focal motor deficits Cranial nerves: Yes CN's II-XII intact bilaterally Extrem General: Yes normal to inspection, Yes no clubbing, cyanosis or edema and Yes no calf tenderness Psych Appearance: grossly normal and well kempt Speech and movement: Normal speech and movement present Results Reviewed Results Reviewed: Results of home-based sleep studyreviewed .AHI 6.8, with % of snoring only 2.9% c/w mild obstructive sleep apnea. Assessment & Plan Assessment & Plan (1) Asthma: Comment: Mild intermittent bronchial asthma since childhood , seems to be controlled Code(s): J45.909 - Unspecified asthma, uncomplicated Category: Medical Qualifiers: Asthma severity: severe Asthma persistence: persistent Asthma complication type: unspecified Qualified Code(s): J45.50 - Severe persistent asthma, uncomplicated Plan: Continue using Advair 100-50 1 inhalation b.i.d. Continue use of albuterol sulfate 90 mcg 2 puffs every 4-6 hours as needed for shortness of breath (2) Sleep apnea: Comment: Diagnosed about 10 years ago on a previous sleep study with obstructive sleep apnea and was provided with a CPAP Has not use the CPAP due to complaints of nasal congestion, uncomfortable with the masks. Has tried multiple nasal decongestants and different CPAP masks with no improvement in symptoms. So practically he has not use the CPAP all this time. Current home-based sleep study is consistent with mild obstructive sleep apnea, as noted above. Code(s): G47.30 - Sleep apnea, unspecified Category: Medical Qualifiers: Sleep apnea type: unspecified type Qualified Code(s): G47.30 - Sleep apnea, unspecified Plan: Normally with mild obstructive sleep apnea , he will be instructed to lose weight and sleep in lateral position , and not use CPAP as the 1st line of treatment. However in view of his paroxysmal atrial fibrillation which is now being treated with meds, it is the better for him to use the CPAP. He is educated about this. He is willing to try using the CPAP as long as he can get a better fitting mask. We will order the CPAP with auto PAP mode and pressure setting of 6-16 cm. We will advise that he should be on a fullface mask, and may be Dream wear mask will be more comfortable. Also will prescribe Atrovent nasal spray to use 1 or 2 sprays in each nostril before putting on the CPAP mask. He will be followed up very closely to monitor his compliance and benefits. He is also instructed to seriously lose weight. (3) Atrial fibrillation: Comment: Patient with PAF, being treated with flecainide 100mg BID and Metoprolol 25mg daily by Cardiology Code(s): I48.91 - Unspecified atrial fibrillation Category: Medical Qualifiers: Atrial fibrillation type: unspecified Qualified Code(s): I48.91 - Unspecified atrial fibrillation Plan: Due to cardiac arrhythmias patient should use CPAP machine Coding Level of Care Code New Pt Level 3 (70169) Diagnoses Severe persistent asthma, unspecified whether complicated J45.50 Asthma severity: severe Asthma persistence: persistent Asthma complication type: unspecified Sleep apnea, unspecified type G47.30 Sleep apnea type: unspecified type Atrial fibrillation, unspecified type I48.91 Atrial fibrillation type: unspecified
[2024-09-01 10:49] VITALS: BP 116/80; PULSE 78; O2SAT 96; BMI 35.7
== END 2024-09-01 11:14 | disposition home or self-care (01) ==
LOC: HO.HPS 10:12
PROVIDERS: PCP Internal Medicine; Referring Provider Internal Medicine; Visit Provider Internal Medicine
DX: J45.50 Severe persistent asthma, uncomplicated (principal); G47.30 Sleep apnea, unspecified; I48.91 Unspecified atrial fibrillation
CPT/HCPCS: 99203

== ENCOUNTER 2024-10-12 09:51 | Outpatient (AMB) | payer OTHER, SELFPAY ==
[2024-10-12 09:54] VITALS: BP 124/72; PULSE 69; RESP 16; TEMP 36.8; O2SAT 97; BMI 37.0
--- NOTE | 2024-10-12 09:54 | MHC.PC.OV ---
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 Accompanied by: Self / Same As Patient Allergies No Known Allergies Allergy (Verified 10/12/24 10:23) Medication List - Last Reconciled 10/12/24 by JOSEFINA Cueva albuterol sulfate 90 mcg/actuation 2 puffs inhalation Q4-6H PRN flecainide 100 mg PO Q12H fluticasone propion-salmeterol 100-50 mcg/dose (Advair Diskus) 1 inh inhalation Q12H ibuprofen 600 mg PO TID PRN lorazepam (Ativan) 0.5 mg PO BID PRN metoprolol succinate ER 25 mg PO DAILY omeprazole 40 mg PO DAILY trazodone 50 mg PO BEDTIME PRN Tobacco use date assessed: 10/12/24 Dental Screening Dental Screen Date: 10/12/24 Did you have a dental visit in the last 12 months?: No Did you have a dental problem in the last 6 months where you did not have access to dental care?: No Was dental information given to patient?: No HPI HLD/Anemia/constipaition HPI Details The patient is a 44-year-old male presenting for follow up appointment He did not get his blood work done-will be going after this appt to get these done Reports battling with constipation-reports taking 2-3 days to have a bowel movement He is taking a one senna tab qod or twice a week combined with one stool softener Has been adding more vegetables and cutting out breads/carbohydrates Reports eating rice 1-2 weeks only, he has been increasing his water intake as well states that 2-3 times a week he gets blight red blood from rectum after forcing to have bowel movement Reports checking rectum but he does not feel any hemorrhoids, denies any hx of hemorrhoids reports that some days, it is very hard for him to have a bowel movement Reports that his mother, brother and aunt had colon cancer, and all passed from colon cancer Sleep apnea: reports that he was ordered a new machine and supposed to pick this up today Dr. Obando, his body work auto trimmer told him that he is going to give him a decongestant to help him tolerate the new CPAP machine Asthma is doing well, recently he was started on advair Diskus 100-50 mcg/dose 1 inh Q12H along with his rescue inahler Afib-reports that this has been under control at this time on current treatment flecainide 100mg Q12H GERD: was stable on omeprazole 40mg, reports stopping this med about 2.5 weeks ago, but he still has been good and will continue monitor. He is hoping to be fine due to all his dietary changes Anxiety: still coming and going, feels better when he stays busy reports that he works a lot remains adamant about not needing to speak to a therapist/psychiatrist Denies SI/HI PFSH Medical History Anemia Anxiety Atrial fibrillation COVID-19 Obese Asthma Surgical History Hx of appendectomy Family History Family/Other Lung cancer Social History Housing: Apartment Alcohol intake: former Patient Tobacco Use Status: Never used Tobacco e-Cigarette/Vaping Use: Never Used Second Hand Smoke Exposure: No Substance Use Type: Caffiene service: No Current occupational status: employed Current occupational exposures/hazards: No Cognitive needs: No Hearing needs: No Vision needs: No Questionnaire PHQ-9 Over the last 2 weeks, how often have you been bothered by any of the following problems? 1. Little interest or pleasure in doing things: several days 2. Feeling down, depressed, or hopeless: several days 3. Trouble falling or staying asleep, or sleeping too much: nearly every day 4. Feeling tired or having little energy: more than half the days 5. Poor appetite or overeating: not at all 6. Feeling bad about yourself - or that you are a failure or have let yourself or your family down: not at all 7. Trouble concentrating on things, such as reading the newspaper or watching television: more than half the days 8. Moving or speaking so slowly that other people could have noticed. Or the opposite - being so fidgety or restless that you have been moving around a lot more than usual: more than half the days 9. Thoughts that you would be better off or of hurting yourself in some way: not at all Total score: 11 Depression Screening Interpretation: Positive Depression Screening Done: Yes Source: Developed by Drs. Kevin Waller, Kathrin Hahn, Neal Morelos and colleagues, with an educational rene from [employer]. Thrive Questionnaire Date Thrive assessed: 10/12/24 I am a: Patient What is your living situation today?: I have a place to live, but I am worried about losing it in the future Within the past 12 months, did the food you bought not last and you didn't have the money to get more?: Sometimes True Within the past 12 months, did you worry whether your food would run out before you got money to buy more?: Sometimes True Do you have trouble paying for medicines?: Yes Do you have trouble getting transportation to medical appointments?: No Do you have trouble paying your heating and electricity bill?: No Do you have trouble taking care of your child, family member or friend?: No Do you have trouble with day-to-day activities such as bathing, preparing meals, shopping, managing finances, etc.?: No Are you currently unemployed and looking for a job?: No Are you interested in more education?: Yes Currently or been in a relationship where the following occur: No concerns reported THRIVE Score: 3 AUDIT C Alcohol Use Questionnaire (AUDIT-C) 1. How often do you have a drink containing alcohol?: Never Total Score: 0 Score Reviewed/Action Taken: No CAM-7 AMB Questionnaire CAM-7 Date CAM - 7 assessed: 10/12/24 Feeling nervous, anxious, or on edge: 2 = More than half the days Not being able to stop or control worryin = Several days Worrying too much about different things: 1 = Several days Trouble relaxin = Nearly every day Being so restless that it is hard to sit still: 2 = More than half the days Becoming easily annoyed or irritable: 0 = Not at all Feeling afraid as if something awful might happen: 0 = Not at all Total CAM-7 score (0-4 normal; 5-9 mild; 10-14 moderate; 15-21 severe): 9 Source: Developed by Drs. Kevin Waller, Kathrin Hahn, Neal Morelos and colleagues, with an educational rene from [employer]. Review of Systems Const Denies headache(s) Eyes Denies loss of vision ENT Denies vertigo, Denies dizziness, Denies headache(s) and Denies sore throat Card Denies chest pain, Reports irregular heart rhythm (Intermittent-has been controlled), Denies leg edema and Denies lightheadedness Resp Denies cough, Denies hemoptysis and Denies wheezing GI Denies abdominal pain, Denies melena, Reports hematochezia (With hard stools), Reports constipation, Denies diarrhea and Denies vomiting Denies dysuria, Denies urinary frequency and Denies urinary urgency Musc Denies arthralgias, Denies joint swelling, Denies numbness and Denies tingling Neuro Denies Abnormal speech present, Denies behavioral changes, Denies vertigo, Denies dizziness, Denies headache(s), Denies loss of vision, Denies memory loss, Denies numbness and Denies tingling Psych Reports anxiety (On and off), Denies behavioral changes, Reports depression (On and off), Denies memory loss and Denies panic attacks Helder/Lymph Denies easy bleeding and Denies easy bruising Aller/Immun Denies wheezing Physical exam (Primary Care) Vital Signs: Last Vital Signs Temp 98.2 F 10/12/24 09:54 Pulse 69 10/12/24 09:54 Resp 16 10/12/24 09:54 BP 124/72 10/12/24 09:54 Pulse Ox 97 10/12/24 09:54 Oxygen Delivery Method Room Air 10/12/24 09:54 BMI result Body Mass Index 37.0 Tobacco/Smoking Status: Tobacco use Status Tobacco use date assessed 10/12/24 10/12/24 10:13 Patient Tobacco Use Status Never used Tobacco 10/12/24 10:13 e-Cigarette/Vaping Use Never Used 10/12/24 10:13 PHQ-9: PHQ-9 Score PHQ-9: Total score 11 10/12/24 10:13 Depression Screening Interpretation: Positive Thrive Assessment: Date of Thrive Assessment Date Thrive assessed 10/12/24 10/12/24 10:13 Currently or been in a relationship where the following occur: No concerns reported Const General: healthy appearing, no acute distress, alert and awake Nutritional Appearance: well nourished Orientation/consciousness: oriented to person, oriented to place and oriented to time HENMT Ears: TM's normal bilaterally General nose exam: Normal nasal mucous membranes and turbinates present Eyes Conjunctivae: conjunctivae normal Sclerae: sclerae normal Pupils: Equal, round and reactive pupils present Neck Neck: Yes no lymphadenopathy and Yes no JVD Thyroid: Thyroid normal Carotids: no bruits Resp Effort & Inspection: normal respiratory effort and not tachypneic Auscultation: no crackles, no rales, no rhonchi and no wheezes Cardio Rate: regular rate Rhythm: regular rhythm Heart sounds: no murmurs and normal S1 and S2 GI Palpation (GI): Soft to palpation, nontender, no hepatomegaly and no splenomegaly Auscultation: normal bowel sounds Rectal Exam - Male: Yes deferred Skin General skin exam: no rashes or lesions noted and dry skin Neuro General: oriented to person, oriented to place and oriented to time Cranial nerves: Yes Equal, round and reactive pupils present Speech: No Abnormal speech present Gait exam (Neuro): Normal gait present Motor exam (neuro): no tremor noted Extrem Right upper extremity: full ROM Left upper extremity: full ROM Right lower extremity: full ROM; no edema Left lower extremity: full ROM; no edema Psych Mental Status: mental status grossly normal Speech and movement: Normal speech and movement present Affect: normal affect Attitude: cooperative Thought process: Normal thought process present Coding Level of Care Code Est Pt Level 4 (94218) Diagnoses Bleeding from anus K62.5 Family history of malignant neoplasm of digestive organs Z80.0 Sleep apnea, unspecified type G47.30 Sleep apnea type: unspecified type Severe persistent asthma, unspecified whether complicated J45.50 Asthma severity: severe Asthma persistence: persistent Asthma complication type: unspecified Heart burn R12 Atrial fibrillation, unspecified type I48.91 Atrial fibrillation type: unspecified Anxiety F41.9 Elevated LDL cholesterol level E78.00 Iron deficiency anemia, unspecified iron deficiency anemia type D50.9 Anemia type: iron deficiency Iron deficiency anemia type: unspecified iron deficiency Time Spent (min) 41 Assessment & Plan Assessment & Plan (1) Bleeding from anus: Code(s): K62.5 - Hemorrhage of anus and rectum Category: Medical Plan: Recurrent with constipation and forced him to go Referred to GI urgently due to strong family history of colon cancer (2) Family history of malignant neoplasm of digestive organs: Code(s): Z80.0 - Family history of malignant neoplasm of digestive organs Category: Medical Plan: GI referral (3) Sleep apnea: Comment: Diagnosed about 10 years ago on a previous sleep study with obstructive sleep apnea and was provided with a CPAP Has not use the CPAP due to complaints of nasal congestion, uncomfortable with the masks. Has tried multiple nasal decongestants and different CPAP masks with no improvement in symptoms. So practically he has not use the CPAP all this time. Current home-based sleep study is consistent with mild obstructive sleep apnea, as noted above. Pulmonary advise August with auto PAP mode and pressure setting of 6-16 cm. Code(s): G47.30 - Sleep apnea, unspecified Category: Medical Qualifiers: Sleep apnea type: unspecified type Qualified Code(s): G47.30 - Sleep apnea, unspecified Plan: He is picking up his new CPAP machine today Encouraged compliance with this Follow up with pulmonology as scheduled (4) Asthma: Comment: Mild intermittent bronchial asthma since childhood , seems to be controlled Code(s): J45.909 - Unspecified asthma, uncomplicated Category: Medical Qualifiers: Asthma severity: severe Asthma persistence: persistent Asthma complication type: unspecified Qualified Code(s): J45.50 - Severe persistent asthma, uncomplicated Plan: Stable,recently he was started on advair Diskus 100-50 mcg/dose 1 inh Q12H along with his rescue inahler Follow up with pulmonology as scheduled (5) Heart burn: Code(s): R12 - Heartburn Category: Medical Plan: Reinforced dietary restrictions Recently paused his PPI therapy; he is still doing well, denies heartburn We will continue to monitor (6) Atrial fibrillation: Comment: Patient with PAF, being treated with flecainide 100mg BID and Metoprolol 25mg daily by Cardiology Code(s): I48.91 - Unspecified atrial fibrillation Category: Medical Qualifiers: Atrial fibrillation type: unspecified Qualified Code(s): I48.91 - Unspecified atrial fibrillation Plan: Intermittent though less frequent than before Regular heart rhythm in office Continue metoprolol succinate ER 25 mg daily, flecainide 100 mg q.12 hours (7) Anxiety: Code(s): F41.9 - Anxiety disorder, unspecified Category: Medical Plan: Encouraged CBT, still remains adamant about not wanting to speak to a therapist/psychiatrist The patient also has a history of bipolar 1, we will continue to encourage professional evaluation Reports staying busy is his strategies Continue lorazepam 0.5 mg b.i.d. p.r.n. (8) Elevated LDL cholesterol level: Code(s): E78.00 - Pure hypercholesterolemia, unspecified Category: Medical Plan: No recent labs completed. Reports that he has not eaten anything all day and we will go after this appointment to complete this Discussed lifestyle modifications including dietary changes and physical activity (9) Anemia: Code(s): D64.9 - Anemia, unspecified Category: Medical Qualifiers: Anemia type: iron deficiency Iron deficiency anemia type: unspecified iron deficiency Qualified Code(s): D50.9 - Iron deficiency anemia, unspecified Plan: History of anemia stable on last blood work Patient to get new labs done, we will evaluate and advise We will continue to monitor CBC Orders: Orders [facility] [place]. Panel Fast 3 Months D50.9 - Iron deficiency anemia, unspecified, E78.00 - Pure hypercholesterolemia, unspecified, F31.30 - Bipolar disorder, current episode depressed, mild or moderate severity, unspecified, F41.9 - Anxiety disorder, unspecified, G47.30 - Sleep apnea, unspecified, I48.91 - Unspecified atrial fibrillation, J45.50 - Severe persistent asthma, uncomplicated, R12 - Heartburn Lipid Panel 3 Months D50.9 - Iron deficiency anemia, unspecified, E78.00 - Pure hypercholesterolemia, unspecified, F31.30 - Bipolar disorder, current episode depressed, mild or moderate severity, unspecified, F41.9 - Anxiety disorder, unspecified, G47.30 - Sleep apnea, unspecified, I48.91 - Unspecified atrial fibrillation, J45.50 - Severe persistent asthma, uncomplicated, R12 - Heartburn Vitamin D 25-OH Total 3 Months D50.9 - Iron deficiency anemia, unspecified, E78.00 - Pure hypercholesterolemia, unspecified, F31.30 - Bipolar disorder, current episode depressed, mild or moderate severity, unspecified, F41.9 - Anxiety disorder, unspecified, G47.30 - Sleep apnea, unspecified, I48.91 - Unspecified atrial fibrillation, J45.50 - Severe persistent asthma, uncomplicated, R12 - Heartburn Complete Blood Count Auto Diff 3 Months D50.9 - Iron deficiency anemia, unspecified, E78.00 - Pure hypercholesterolemia, unspecified, F31.30 - Bipolar disorder, current episode depressed, mild or moderate severity, unspecified, F41.9 - Anxiety disorder, unspecified, G47.30 - Sleep apnea, unspecified, I48.91 - Unspecified atrial fibrillation, J45.50 - Severe persistent asthma, uncomplicated, R12 - Heartburn TSH reflex Free T4 3 Months D50.9 - Iron deficiency anemia, unspecified, E78.00 - Pure hypercholesterolemia, unspecified, F31.30 - Bipolar disorder, current episode depressed, mild or moderate severity, unspecified, F41.9 - Anxiety disorder, unspecified, G47.30 - Sleep apnea, unspecified, I48.91 - Unspecified atrial fibrillation, J45.50 - Severe persistent asthma, uncomplicated, R12 - Heartburn UA CC w/rflx Micro + Cult 3 Months D50.9 - Iron deficiency anemia, unspecified, E78.00 - Pure hypercholesterolemia, unspecified, F31.30 - Bipolar disorder, current episode depressed, mild or moderate severity, unspecified, F41.9 - Anxiety disorder, unspecified, G47.30 - Sleep apnea, unspecified, I48.91 - Unspecified atrial fibrillation, J45.50 - Severe persistent asthma, uncomplicated, R12 - Heartburn Referrals Gastroenterology Referral K59.00 - Constipation, unspecified, K62.5 - Hemorrhage of anus and rectum, Z80.0 - Family history of malignant neoplasm of digestive organs
== END 2024-10-12 10:51 | disposition home or self-care (01) ==
LOC: HO.HMCH 09:51
PROVIDERS: PCP Internal Medicine
DX: K62.5 Hemorrhage of anus and rectum (principal); J45.50 Severe persistent asthma, uncomplicated; I48.91 Unspecified atrial fibrillation; Z80.0 Family history of malignant neoplasm of digestive organs; G47.30 Sleep apnea, unspecified; R12 Heartburn; F41.9 Anxiety disorder, unspecified; E78.00 Pure hypercholesterolemia, unspecified; D50.9 Iron deficiency anemia, unspecified

== ENCOUNTER 2024-10-12 09:51 | Outpatient (REF) | payer OTHER, SELFPAY ==
[2024-10-12 11:20] LABS: MANUAL DIFF FLAG NO
[2024-10-12 11:47] LABS: Basophils Percent Auto 0.3 % (0-2); Eosinophils Absolute Auto 0.1 X10*3/uL (0.0-0.4); Eosinophils Percent Auto 1.2 % (0-4); Hematocrit 41.4 % (42.0-52.0); Hemoglobin 13.2 g/dl (14.0-18.0); Imm Gran Abs Auto 0.01 X10*3/uL (0.00-0.03); Imm Gran Pct Auto 0.2 % (0.0-0.4); Lymphocytes Absolute Auto 1.7 X10*3/uL (1.2-4.9); Lymphocytes Percent Auto 28.9 % (20-40); Mean Corpuscular HGB Conc 31.9 g/dl (31.0-36.0); Mean Corpuscular Hemoglobin 27.4 pg (27.0-33.0); Mean Corpuscular Volume 86.1 fL (80.0-98.0); Mean Platelet Volume 9.4 fL (9.4-12.4); Monocytes Absolute Auto 0.4 X10*3/uL (0.1-1.2); Monocytes Percent Auto 7.3 % (2-11); Neutrophils Absolute Auto 3.7 x10*3/uL (2.0-8.3); Neutrophils Percent Auto 62.1 % (45-73); Platelet Count 304 X10*3/uL (160-400); Red Blood Count 4.81 X10*6/uL (4.60-5.80); Red Cell Distribution Width 13.2 % (11.0-16.0); White Blood Count 5.9 X10*3/uL (4.8-10.8)
[2024-10-12 12:01] LABS: Appearance Urine Clear; Color Urine Yellow; Glucose Urine UA Negative (Negative); Leukocyte Esterase Urine Negative (Negative); Nitrite Urine Negative (Negative); PH 5.5 (5.0-9.0); Urine Blood Negative (Negative); Urine Ketones Negative (Negative); Urine Protein Negative (Neg-Trace)
[2024-10-12 12:14] LABS: Alanine Aminotransferase 28 U/L (0-40); Albumin Level 4.4 g/dL (3.5-5.0); Alkaline Phosphatase 52 U/L (39-117); Anion Gap 9 (12-20); Aspartate Amino Transferase 28 U/L (5-37); Bilirubin Total 0.4 mg/dL (0.0-1.0); Blood Urea Nitrogen 18 mg/dL (9-16); Calcium 9.2 mg/dL (8.4-10.2); Carbon Dioxide 28 mmol/L (22-29); Chloride 108 mmol/L (96-108); Cholesterol 207 mg/dL (<200); Estimated Glomerular Filt Rate > 60; Glucose Fasting 98 mg/dL (60-99); HDL Cholesterol 42 mg/dL (>40); Iron 96 mcg/dL (45-160); LDL Cholesterol Calculated 147 mg/dL (<100); Percent Iron Saturation 31 % (15-50); Potassium 4.4 mmol/L (3.3-5.1); Sodium 141 mmol/L (135-145); Total Iron Binding Capacity 313 mcg/dL (228-428); Total Protein 7.1 g/dL (6.5-8.0); Triglycerides 94 mg/dL (<150); Unsaturated Iron Binding 217 ug/dL
[2024-10-12 12:35] LABS: TSH reflex Free T4 2.33 uIU/mL (0.32-4.0); Vitamin D 25-OH Total 59.5 ng/mL (>30)
[2024-10-12 12:47] LABS: Vitamin B12 695 pg/mL (200-900)
== END 2024-10-12 09:52 | disposition home or self-care (01) ==
LOC: HO.LAB 09:51
PROVIDERS: Physician Assistant Medical; PCP Internal Medicine
DX: I48.91 Unspecified atrial fibrillation (principal); R53.83 Other fatigue; G25.81 Restless legs syndrome; G47.30 Sleep apnea, unspecified; F41.9 Anxiety disorder, unspecified; F31.30 Bipolar disorder, current episode depressed, mild or moderate severity, unspecified; E78.00 Pure hypercholesterolemia, unspecified; K62.5 Hemorrhage of anus and rectum; J45.50 Severe persistent asthma, uncomplicated; R12 Heartburn; D50.9 Iron deficiency anemia, unspecified; Z80.0 Family history of malignant neoplasm of digestive organs
CPT/HCPCS: 36415; 80053; 80061; 81003; 82306; 82607; 82746; 83540; 84443; 85025

== ENCOUNTER 2024-10-19 08:21 | Outpatient (AMB) | payer OTHER, SELFPAY ==
[2024-10-19 08:26] VITALS: BP 108/62; PULSE 73; BMI 37.3
--- NOTE | 2024-10-19 08:26 | A.OFFVIS_ITS ---
Vital Signs 10/19/24 08:26 Height 5 ft 8 in Weight 245 lb 2.464 oz BMI 37.3 BP 108/62 Blood Pressure Location Lt brachial Position Sitting Pulse 73 Pulse Source Monitor Intake Visit Reasons: 3m follow up - pre op Vice Admiral Required: No Allergies No Known Allergies Allergy (Verified 10/19/24 08:28) Medication List - Last Reconciled 10/19/24 by Luba Wang, PREPARED [employer] TEAM LEADER-C albuterol sulfate 90 mcg/actuation 2 puffs inhalation Q4-6H PRN ferrous sulfate 324 mg PO DAILY 90 days MDD 324 mg flecainide 100 mg PO Q12H fluticasone propion-salmeterol 100-50 mcg/dose (Advair Diskus) 1 inh inhalation Q12H ibuprofen 600 mg PO TID PRN lorazepam (Ativan) 0.5 mg PO BID PRN metoprolol succinate ER 25 mg PO DAILY trazodone 50 mg PO BEDTIME HPI HPI 3m follow up - pre op: Details: Livan is a 44-year-old male with past medical history of asthma, sleep apnea, obesity, newer paroxysmal atrial fibrillation treated with rhythm control using Metoprolol and Flecanide 100mg bid who was referred to electrophysiology for ablation and now presents for follow-up. Today he reports he is working on scheduling his ablation for December 2024. He has not been feeling heart palpitations since last visit. His asthma has been controlled. No chest discomfort, shortness of breath, lightheadedness, presynco pe, syncope. No leg edema. Describes himself as active throughout the day. Has been doing cardio for exercise. Wearing CPAP the last 4 nights. Has colonoscopy scheduled for 11/25/2024. Taking meds as directed. [facility] Medical History Anemia Anxiety Atrial fibrillation COVID-19 Obese Asthma Surgical History Hx of appendectomy Family History Family/Other Lung cancer Social History Housing: Apartment Alcohol intake: former Patient Tobacco Use Status: Never used Tobacco e-Cigarette/Vaping Use: Never Used Second Hand Smoke Exposure: No Substance Use Type: Caffiene service: No Current occupational status: employed Current occupational exposures/hazards: No Cognitive needs: No Hearing needs: No Vision needs: No Review of Systems Const All systems reviewed & are unremarkable except as noted in HPI and below ENT Denies dizziness Card Denies chest pain, Denies chest pain at rest, Denies chest pain with activity, Denies rapid heart rate, Denies pedal edema, Denies edema, Denies leg edema, Denies lightheadedness, Denies palpitations, Denies dyspnea, Denies dyspnea on exertion and Denies orthopnea Resp Denies cough, Denies dyspnea and Denies dyspnea on exertion GI Denies hematochezia and Denies change in stool character Musc Denies abnormal gait, Denies limited range of motion, Denies muscle cramps, Denies muscle weakness, Denies numbness, Denies radiating pain into limb, Denies stiffness and Denies tingling Neuro Denies abnormal gait, Denies dizziness, Denies numbness and Denies tingling Endo Denies palpitations Physical Exam Vital Signs: BMI result Body Mass Index 37.3 Const General: cooperative, healthy appearing, comfortable and no acute distress Orientation/consciousness: patient oriented x3 Neck Neck: Yes normal visual inspection and Yes no JVD Resp Effort & Inspection: normal respiratory effort Auscultation: clear to auscultation bilaterally, no crackles, no rales, no rhonchi and no wheezes Cardio Rate: regular rate Rhythm: regular rhythm Heart sounds: S1 normal heart sound present, S2 normal heart sound present, no gallops, no murmurs and no rubs Peripheral pulses: Peripheral pulses 2+ throughout Neuro General: patient oriented x3 Extrem General: Yes normal to inspection, No no pedal edema and No calf tenderness Psych Appearance: grossly normal Mental Status: mental status grossly normal Speech and movement: Normal speech and movement present Office Procedures EKG Details: Today, read by me, normal sinus rhythm, rate 73, QTC 451 milliseconds [id number], Complete Assessment & Plan Assessment & Plan (1) Paroxysmal A-fib: Code(s): I48.0 - Paroxysmal atrial fibrillation Category: Medical Plan: New finding of paroxysmal atrial fibrillation, May 2024. He was initially on metoprolol and flecainide 50 mg b.i.d. and had breakthrough PAF requiring ER visit. His flecainide was increased to 100 mg b.i.d. and he has done well with that dose. Chads Vasc score of 0. He was not started on anticoagulation. Echo done on 05/21/2024 showed EF greater than 70%, no regional wall motion abnormalities, no significant valve issues, left atrium normal size. Stress echocardiogram done 07/05/2024 with exercise 9 minutes, moderate shortness of breath, no EKG changes and no echo evidence of ischemia. Holter monitor 07/05/2024 for 3 days shows sinus rhythm with average heart rate 59, 2 minute episode of PAF, rate 133, rare VE. Home sleep study done 08/16/2024 shows mild sleep apnea. He was referred to pulmonology and has since started on CPAP. Who was referred to electrophysiology and plans to undergo ablation in the near future. EP note indicates he will be on anticoagulation 3 weeks prior to the procedure. EKG today sinus rhythm, rate 73. No med changes made at this time. Continue metoprolol and flecainide. Cardiology follow-up 4-5 months, sooner if needed. (2) Sleep apnea: Code(s): G47.30 - Sleep apnea, unspecified Category: Medical Qualifiers: Sleep apnea type: unspecified type Qualified Code(s): G47.30 - Sleep apnea, unspecified Plan: Mild sleep apnea, following with pulmonology. Started on CPAP for nights ago. (3) Preop cardiovascular exam: Code(s): Z01.810 - Encounter for preprocedural cardiovascular examination Category: Medical Plan: Preop for colonoscopy, witbh Dr Andrews, planned for 11/25/2024. He is low cardiac risk. His AF is currently suppressed and ablation is anticipated in later December. At present he is not on anticoagulation but plans to start 3 weeks prior to ablation. Continue the flecanide and metoprolol. Cardiac monitoring. Call/ consult cardiology if needed Plan I have discussed with the patient the management strategies for atrial fibrillation, including the ongoing use of flecainide and metoprolol. We reviewed the plan for a catheter ablation, and emphasized the importance of scheduling the procedure promptly due to the current logistical delay. I instructed that calling or going to the EP scheduling office may expedite the process. Regarding mild obstructive sleep apnea, I emphasized the importance of adhering to CPAP therapy for optimal respiratory and cardiovascular health. The patient indicated efforts to mitigate mask irritation to ensure compliance. Patient Instructions: - Continue taking flecainide, metoprolol, and eventual anticoagulation as prescribed. - Persist in contacting the electrophysiology office to finalize your ablation appointment. - Keep using CPAP as directed; manage any mask issues as you have done successfully. - Be aware of the scheduling for your colonoscopy and discuss any necessary changes with your healthcare provider. Patient was informed and verbally consented to the use of an ambient scribe for clinic note documentation during this visit. Visit time spent on chart review, interview, assessment, orders, documentation. Coding Level of Care Code Est Pt Level 4 (41068) Complex EM visit Add On G2211 Diagnoses Paroxysmal A-fib I48.0 Sleep apnea, unspecified type G47.30 Sleep apnea type: unspecified type Preop cardiovascular exam Z01.810 CPT Codes EKG - CPT: 48566-[id number], Complete ([id number]) Time Spent (min) 28
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
== END 2024-10-19 08:58 | disposition home or self-care (01) ==
PROVIDERS: PCP Internal Medicine; Visit Provider Nurse Practitioner Family
DX: I48.0 Paroxysmal atrial fibrillation (principal); G47.30 Sleep apnea, unspecified; Z01.810 Encounter for preprocedural cardiovascular examination
CPT/HCPCS: 93010; 99214; G2211

== ENCOUNTER → 2024-10-19 08:21 | Outpatient (BNVA) | payer OTHER, SELFPAY | PROVIDERS: PCP Internal Medicine; Visit Provider Nurse Practitioner Family | DX: Z01.810 Encounter for preprocedural cardiovascular examination (principal); G47.30 Sleep apnea, unspecified | CPT/HCPCS: 93005 ==

== ENCOUNTER 2024-10-21 10:01 | Outpatient (AMB) | payer OTHER, SELFPAY ==
--- OUTSIDE RECORDS SUMMARY | 2024-10-14 06:00 | XMS_ITS ---
Author Organization [facility] Address [address] [place] [address] Care Team Providers Care Contractor Field Hauling Name Role Phone Kylie Grant MD Primary Care Provider Kevin iGll [phone] Allergies No Known Allergies REASON FOR VISIT [...] Family History of Cancer of Colon (Situation) (348866229) Family history of colon cancer (Z80.0) Active confirmed Problem Rectal bleeding (24643094) Rectal bleeding (K62.5) Active confirmed Vital Signs Blood pressure systolic 111 mm Hg 10/15/19 25 Blood pressure diastolic 77 mm Hg 025 Height 68 in 10/14/2024 Weight 243 lbs 10/14/2024 BMI 36.94 kg/m2 10/14/2024 Procedures Procedure Date Ordered Date Performed Result Body Sit e COLONOSCOPY 10/14/2024 N/A Encounters Encounter Location Date Provider Diagnosis [facility] [address] [place] [address] 10/14/2024 Kevin Andrews Family history of colon [...] bleeding (ICD-10 - K62.5) Cardiology clearance from [facility]--seeing them on 10/19/2024 Overall, Livan appears quite [...] Assessment Notes Rectal bleeding Cardiology clearance from [facility]--seeing them on 10/19/2024 Pending Test Test Name Order Date COLONOSCOPY 10/14/2024 Next Appt Details Provider Name:Kevin Bates Andrews , 11/25/2024 01:30:00 PM, [address] [place] [address], [id number], Progress Notes * LIVAN DUMONTDOB:[birth year] (44 yo M)Acc No.[id number]:10/14/2024 Progress Notes Patient: LIVAN BOLES Provider: Sergio Andrews MD :1980 A ge:44 Y S ex:Male Date:10/14/2024 Address:[address] [place], [place] [id number] Pcp:Kylie Grant MD Subjective: * Chief Complaints: [...] significant diarrhea. He has been using some rhge-qxl-ivcoaba medication such as senna to help with [...] of 31%. * Medical History: A trial fibrillation-[facility] Cardiology--ablation may be done in 12/2024, Borderline chronic anemia--normal Iron studies in 2024, Asthma - mild intermittent, Sleep apnea--not using CPAP as of the 10/2024 OV, Denies ME,DM,CVA,renal disease, Negative colonoscopy with me in 2010.. [...] M iscellaneous: M arital status: single. 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 D rug/Alcohol: A GRANT-C (Standard) D id [...] at 1:30 pmmiralax Notes: Cardiology clearance from [facility]--seeing them on 10/19/2024?? * Procedure Codes: 4 5378 DIAGNOSTIC COLONOSCOPY * Preventive Medicine: Counseling: C are goal follow-up plan: A sally Normal BMI Follow-up G iving encouragement to exercise, B ME management provided Y es. * * The named appointment provid er may or may not be the originator of this progress note, and it is not deemed complete until electronically signed by the appointment provider. Sign off status: Pending * Provider: Sergio Andrews MD Date: 0 10/14/2024 Generated for Arely flower/William/Daviditting on: 0 10/21/2024 11:14 AM EDT History and Physical Notes * [...] significant diarrhea. He has been using some uueu-img-gnvgatx medication such as senna to help with [...]
[2024-10-21 10:26] VITALS: BP 122/70; PULSE 72; O2SAT 95; BMI 37.2
--- NOTE | 2024-10-21 10:26 | A.OFFVIS_ITS ---
Vital Signs 10/21/24 10:26 Height 5 ft 8 in Weight 244 lb 11.41 oz BMI 37.2 BP 122/70 Blood Pressure Location Lt brachial Position Sitting Pulse 72 Pulse Source Pulse Oximeter Pulse Oximetry (%) 95 Oxygen Delivery Method Room Air Intake Visit Reasons: Asthma Intake Note: pt is here for follow up and just received his cpap, but needs a nasal spray to help with usage of cpap, saline not much help. Chair Trimmer Required: No Allergies No Known Allergies Allergy (Verified 10/21/24 11:04) Medication List - Last Reconciled 10/21/24 by Rose Obando MD albuterol sulfate 90 mcg/actuation 2 puffs inhalation Q4-6H PRN ferrous sulfate 324 mg PO DAILY 90 days MDD 324 mg flecainide 100 mg PO Q12H fluticasone propion-salmeterol 100-50 mcg/dose (Advair Diskus) 1 inh inhalation Q12H ibuprofen 600 mg PO TID PRN lorazepam (Ativan) 0.5 mg PO BID PRN metoprolol succinate ER 25 mg PO DAILY trazodone 50 mg PO BEDTIME Do you need a note to return to daycare/school/sports/work: No HPI HPI Asthma: Details: THIS 44 YEARS OLD MODERATELY OBESE GENTLEMAN IS A CASE OF OBSTRUCTIVE SLEEP APNEA AND BRONCHIAL ASTHMA. HE GOT HIS CPAP DEVICE ONLY ABOUT A WEEK AGO. AND SO FAR HE HAS USE FOR 6 NIGHTS. AVERAGE USE IT PER NIGHT 8 HOURS 24 MINUTES. 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 HE DOES THIS TO ACCLIMATIZE HIMSELF THE USE OF CPAP. MAIN ISSUE IS THAT HE STILL HAS NASAL CONGESTION AND NEEDS A DECONGESTANT SPRAY. HE DOES USE HUMIDIFICATION AT HIGH LEVEL WHICH IS MORE COMFORTABLE. BREATHING BONILLA HAS BEEN VERY STABLE WHILE HE IS USING HIS ADVAIR DISKUS 100-50 , HE DOES NOT NEED TO USE THE RESCUE INHALER MUCH. [facility] Medical History Anemia Anxiety Atrial fibrillation COVID-19 Obese Asthma Surgical History Hx of appendectomy Family History Family/Other Lung cancer Social History Housing: Apartment Alcohol intake: former Patient Tobacco Use Status: Never used Tobacco e-Cigarette/Vaping Use: Never Used Second Hand Smoke Exposure: No Substance Use Type: Caffiene service: No Current occupational status: employed Current occupational exposures/hazards: No Cognitive needs: No Hearing needs: No Vision needs: No Review of Systems Const All systems reviewed & are unremarkable except as noted in HPI and below Eyes Reports no additional complaints ENT Reports nasal congestion (Frequently especially if he tries to use the CPAP) Card Reports irregular heart rhythm (Recent history of paroxysmal atrial fib.) and Denies leg edema Resp Reports as per HPI GI Reports no additional complaints Reports no additional complaints Musc Reports no additional complaints Skin/Breast Reports system reviewed and no additional complaints, except as documented Neuro Reports no additional complaints Psych Reports no additional complaints Endo Reports no additional complaints Helder/Lymph Reports no additional complaints Physical Exam Vital Signs: Last Vital Signs Pulse 72 10/21/24 10:26 BP 122/70 10/21/24 10:26 Pulse Ox 95 10/21/24 10:26 Oxygen Delivery Method Room Air 10/21/24 10:26 BMI result Body Mass Index 37.2 Const General: healthy appearing (Except for being overweight), comfortable, no acute distress, alert and awake Orientation/consciousness: patient oriented x3 HEENT Head: Yes normal to inspection General nose exam: No nasal polyps present and No nasal discharge present Face and sinus: Yes sinuses nontender Mouth: oropharynx abnormals (Narrow and crowded, Mallampati scale 3) Throat: Yes posterior oropharynx normal Eyes General: appearance normal, both eyes and all related structures Neck Neck: Yes normal visual inspection, Yes no lymphadenopathy, Yes trachea midline and Yes no JVD Thyroid: Thyroid normal Chest Chest palpation & inspection: normal inspection of the chest, normal palpation of entire chest wall and no tenderness Resp Other: Lungs clear bilaterally, no wheezing or crepitations heard Effort & Inspection: normal respiratory effort Cardio Palpation: normal PMI Rate: regular rate Rhythm: regular rhythm Heart sounds: no gallops and no murmurs Peripheral pulses: Peripheral pulses 2+ throughout GI Palpation (GI): Soft to palpation, nontender, No hepatosplenomegaly present and no masses Auscultation: normal bowel sounds Back/Spine/Pelvis Thoracic/Lumbar Spine: thoracic and lumbar spine normal to inspection Skin General skin exam: no rashes or lesions noted Neuro General: patient oriented x3 and no focal motor deficits Cranial nerves: Yes CN's II-XII intact bilaterally Extrem General: Yes normal to inspection, Yes no clubbing, cyanosis or edema and Yes no calf tenderness Psych Appearance: grossly normal and well kempt Speech and movement: Normal speech and movement present Results Reviewed Results Reviewed: WE REVIEWED THE DATA OF HER HIS THE CPAP USAGE WHICH HE HAS DOWN ONLY FOR ABOUT 6 NIGHTS. HE IS USING EVERY NIGHT THE AVERAGE USE IT PER NIGHT 8 HOURS 24 MINUTES. NOTED THAT HE DOES HAVE MODERATE DEGREE OF AIR LEAKAGE. THE RESIDUAL AHI 1.6 Assessment & Plan Assessment & Plan (1) Asthma: Comment: Mild intermittent bronchial asthma since childhood , seems to be controlled Code(s): J45.909 - Unspecified asthma, uncomplicated Category: Medical Qualifiers: Asthma complication type: unspecified Asthma persistence: persistent Asthma severity: severe Qualified Code(s): J45.50 - Severe persistent asthma, uncomplicated Plan: CONTINUE ADVAIR 100-50 1 INHALATION B.I.D. USE ALBUTEROL HFA 2 PUFFS Q 4-6 HOURS ONLY P.R.N. (2) Sleep apnea: Comment: HE HAS STARTED USING CPAP REGULARLY, SOMETIME HE USES CPAP EVEN WHEN HE IS AWAKE, JUST TO ACCLIMATIZE HIMSELF WITH THE CPAP. HE DOES COMPLAIN OF NASAL CONGESTION AND HE NEEDS A DECONGESTANT SPRAY. Code(s): G47.30 - Sleep apnea, unspecified Category: Medical Qualifiers: Sleep apnea type: unspecified type Qualified Code(s): G47.30 - Sleep apnea, unspecified Plan: USE IPRATROPIUM NASAL SPRAY 1 SQUIRT IN EACH NOSTRIL BEFORE PUTTING ON THE CPAP MASK. CONTINUE TO USE CPAP EVERY NIGHT UP TO AT LEAST 6 HOURS PER NIGHT. Medications: New ipratropium bromide Administer into each nostril BEFORE PUTTING ON THE CPAP MASK 2 sprays intranasal BID 30 mL 3RF NASAL CONGESTION 30 days Coding Level of Care Code Est Pt Level 3 (15341) Diagnoses Severe persistent asthma, unspecified whether complicated J45.50 Asthma complication type: unspecified Asthma persistence: persistent Asthma severity: severe Sleep apnea, unspecified type G47.30 Sleep apnea type: unspecified type
== END 2024-10-21 11:05 | disposition home or self-care (01) ==
LOC: HO.HPS 10:02
PROVIDERS: PCP Internal Medicine; Visit Provider Internal Medicine
DX: J45.50 Severe persistent asthma, uncomplicated (principal); G47.30 Sleep apnea, unspecified
CPT/HCPCS: 99213

== ENCOUNTER → 2024-10-21 10:01 | Outpatient (BNVA) | payer OTHER, SELFPAY | PROVIDERS: PCP Internal Medicine; Visit Provider Internal Medicine ==

== ENCOUNTER 2024-10-29 09:41 | Outpatient (AMB) | payer OTHER, SELFPAY ==
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
--- NOTE | 2024-10-29 09:44 | A.OFFVIS_ITS ---
Vital Signs 10/29/24 09:45 Height 5 ft 8 in Weight 244 lb BMI 37.1 Intake Visit Reasons: 3 mnts f/u Intake Note: Patient presents follow up RLS/Sleep. Labs/HST in chart(AHI-7, FABBY-79%. Trial APAP 5-20cm) Allergies No Known Allergies Allergy (Verified 10/29/24 09:47) HPI Comments Details: 44 y/o r. handed man with PAF/SVT comes for f/u of sleep apnea. 07/2024 Headaches are improved since 12.5mg po metropolol was started and recently diagnosed with SVTs. Will f/u with cardiology for ablation at [facility]. LIBRA compliance, October 15 cpap use started. Pressures were adjusted and now he feels much better they were 6cmH20- changed to 8cmH20, no on ramp EPR. His AHI has improved to 0.1 they used to be 5.5cmH20. He is training himself to become a nose breather, and he uses a travel pillow. Uses himalayan salt with mint oil nasal stick, once in a while for congestion, denies rhinorrhea. He goes to bed earlier and wakes up 2x a night for the bathroom, and once to get up and work. He takes trazadone 50mg and melatonin 3mg. He eats very clean, nutrient dense diet. RLS symptoms: He has RLS bilaterally in his feet which keeps him up all hours of night, with tingling, numbness, and uncomfortable sensations. He had one episode of palpitations where his HR increased to 122, and he started to have panic attacks. He did hav a coffee that day which helped him to be more productive and energetic, however he understands stimulants can trigger PAFs. He uses a pulse oximetery, and notices O2 continues to de-sats at night. He sleeps on the couch now because he needs to be more upright. He has heart burn, and is being followed by GI for a possible hiatal hernia 8/9 pain with meals. He has a f/u with Pulmonology for PFT, due to h/o asthma, will complete once ablation is resolved. He denies alcohol, nicotine, or MJ use. Mood is anxious, memory is stable. [facility] Medical History Anemia Anxiety Atrial fibrillation COVID-19 Obese Asthma Surgical History Hx of appendectomy Family History Family/Other Lung cancer Social History Housing: Apartment Alcohol intake: former Patient Tobacco Use Status: Never used Tobacco e-Cigarette/Vaping Use: Never Used Second Hand Smoke Exposure: No Substance Use Type: Caffiene service: No Current occupational status: employed Current occupational exposures/hazards: No Cognitive needs: No Hearing needs: No Vision needs: No Physical Exam Vital Signs: BMI result Body Mass Index 37.1 Const General: cooperative, comfortable and no acute distress Nutritional Appearance: obese (BMI is 36.8) Orientation/consciousness: patient oriented x3 HEENT Face and sinus: Yes normal facial exam and Yes face symmetric Throat: Yes other ([place] score 4) Eyes Pupils: Equal, round and reactive pupils present Neck Neck: Yes full ROM and Yes supple Resp Effort & Inspection: normal respiratory effort and able to speak in complete sentences Neuro General: patient oriented x3 and moves all extremities Cranial nerves: Yes CN's II-XII intact bilaterally, Yes Facial sensation intact/muscles of mastication intact, Yes Equal, round and reactive pupils present, Yes Normal accommodation reflex present, Yes Normal facial strength present, Yes Midline tongue present, Yes Ability to bilaterally rotate head present and Yes Ability to bilaterally elevate shoulders present Gait exam (Neuro): Normal gait present Motor exam (neuro): 5/5 motor strength present throughout and Normal motor muscle tone present throughout Psych Appearance: grossly normal Attitude: cooperative Insight: Good insight present (Psych) Judgement: Good judgement present (Psych) Results Reviewed Results Reviewed: Holter Monitor testing: SVT * Total monitoring time 3 days. * Underlying rhythm is sinus with an average rate of 59/Min. * Rare supraventricular ectopy. * Atrial flutter with rapid ventricular response noted. Overall burden 0.1%. Longest episode 2 minutes. Fastest 133/Min. * Rare ventricular ectopy. * Shortness of breath, irregular heartbeat, chest tightness, cough, nausea, heartburn in patient diary correlates with sinus rhythm, sinus bradycardia, supraventricular ectopy. Assessment & Plan Assessment & Plan (1) Sleep apnea: Comment: He is using cpap more consistently. Code(s): G47.30 - Sleep apnea, unspecified Category: Medical Qualifiers: Sleep apnea type: unspecified type Qualified Code(s): G47.30 - Sleep apnea, unspecified (2) RLS (restless legs syndrome): Code(s): G25.81 - Restless legs syndrome Category: Medical (3) Atrial fibrillation: Comment: Patient with PAF, being treated with flecainide 100mg BID and Metoprolol 25mg daily by Cardiology Code(s): I48.91 - Unspecified atrial fibrillation Category: Medical Qualifiers: Atrial fibrillation type: unspecified Qualified Code(s): I48.91 - Unspecified atrial fibrillation Plan: svt? PAF (4) Anxiety: Comment: on metoprolol? with svt? PAF? Code(s): F41.9 - Anxiety disorder, unspecified Category: Medical (5) Fatigue due to sleep pattern disturbance: Code(s): R53.83 - Other fatigue; G47.9 - Sleep disorder, unspecified Category: Medical Plan LIBRA Sleep disturbance with fatigue - HST Anemia start ferrous sulfate 325mg PO after the labs for Iron profile are completed RLS Check Ferittin level B12/ Iron / Folate , magnalife otc, and weighted blanket, will assess after ablation to administer supplement or dopamine agonist. Ventral Hernia wear your truss Panic Attacks, lorazepam as needed, f/u with cardiology for ablation sree. Patient Instructions: Sleep Hygiene provided: set a scheduled bedtime and wake time to help regulate the circadian rhythm and balance the release of pituitary hormones. Sleep in a dark room, temperatures below 68 degrees, and no devices n bed. Limit caffeinated products 6 hours prior to bed, and limit fluids 2-4 hours prior to bed. Gentle night yoga, diffusing essential oils, and playing soft music can be relaxing. Wash mask, hoses, change filters and fill reservoir with water daily. Coding Level of Care Code Est Pt Level 4 (28934) Diagnoses Sleep apnea, unspecified type G47.30 Sleep apnea type: unspecified type RLS (restless legs syndrome) G25.81 Atrial fibrillation, unspecified type I48.91 Atrial fibrillation type: unspecified Anxiety F41.9 Fatigue due to sleep pattern disturbance R53.83; G47.9 Time Spent (min) 30
[2024-10-29 09:45] VITALS: BMI 37.1
== END 2024-10-29 11:00 | disposition home or self-care (01) ==
LOC: HO.HSMS 09:42
PROVIDERS: PCP Internal Medicine; Visit Provider Physician Assistant Medical
DX: G47.30 Sleep apnea, unspecified (principal); G25.81 Restless legs syndrome; I48.91 Unspecified atrial fibrillation; F41.9 Anxiety disorder, unspecified; R53.83 Other fatigue; G47.9 Sleep disorder, unspecified
CPT/HCPCS: 99214

== ENCOUNTER 2025-01-10 09:46 | Outpatient (REF) | payer OTHER, SELFPAY ==
--- OUTSIDE RECORDS SUMMARY | 2024-11-25 09:30 | XMS_ITS ---
Author Organization [facility] Address [address] [place] [address] Care Team Providers Care Silk Conditioner Name Role Phone Kylie Grant MD Primary Care Provider Kevin Gill [phone] REASON FOR VISIT rectal bleeding,fam hx colon ca Encounters Encounter Location Date Provider Diagnosis [facility] [place] Outpatient [address] [place], [place] [phone] 11/25/2024 Kevin Andrews Plan Of Treatment No Information Progress Notes * PEDRO LUIS DUMONTDOB:[birth year] (44 yo M)Acc No.[id number]:11/25/2024 COLON WITH MAC Patient: PEDRO LUIS BOLES Provider: Sergio Andrews MD :1980 A ge:44 Y S ex:Male Date:11/25/2024 Address:[address] [place], [place] [phone] Pcp:Kylie Grant MD Subjective: * Chief Complaints: [...] 11/25/2024 Generated for Arely flower/William/Daviditting on: 0 01/10/2025 11:19 AM EDT
[2025-01-10 09:57] LABS: MANUAL DIFF FLAG NO
[2025-01-10 10:05] LABS: Hematocrit 38.3 % (42.0-52.0); Hemoglobin 12.3 g/dl (14.0-18.0); Imm Gran Abs Auto 0.02 X10*3/uL (0.00-0.03); Imm Gran Pct Auto 0.4 % (0.0-0.4); Lymphocytes Absolute Auto 1.6 X10*3/uL (1.2-4.9); Mean Corpuscular HGB Conc 32.1 g/dl (31.0-36.0); Mean Corpuscular Hemoglobin 27.3 pg (27.0-33.0); Mean Corpuscular Volume 85.1 fL (80.0-98.0); NRBC Abs Auto 0.000 X10*3/uL (0.0-0.012); NRBC Pct Auto 0.0 /100WBC (0.0-0.2); Platelet Count 234 X10*3/uL (160-400); Red Blood Count 4.50 X10*6/uL (4.60-5.80); White Blood Count 5.3 X10*3/uL (4.8-10.8)
[2025-01-10 10:47] LABS: Alanine Aminotransferase 21 U/L (0-40); Albumin Level 4.1 g/dL (3.5-5.0); Alkaline Phosphatase 53 U/L (39-117); Anion Gap 10 (12-20); Aspartate Amino Transferase 17 U/L (5-37); Blood Urea Nitrogen 19 mg/dL (9-16); Calcium 8.7 mg/dL (8.4-10.2); Carbon Dioxide 28 mmol/L (22-29); Chloride 110 mmol/L (96-108); Cholesterol 188 mg/dL (<200); Estimated Glomerular Filt Rate > 60; HDL Cholesterol 38 mg/dL (>40); Iron 92 mcg/dL (45-160); Percent Iron Saturation 32 % (15-50); Potassium 3.9 mmol/L (3.3-5.1); Sodium 144 mmol/L (135-145); Total Iron Binding Capacity 291 mcg/dL (228-428); Total Protein 6.9 g/dL (6.5-8.0); Triglycerides 95 mg/dL (<150); Unsaturated Iron Binding 199 ug/dL
[2025-01-10 11:12] LABS: Appearance Urine Clear; Glucose Urine UA Negative (Negative); PH 5.5 (5.0-9.0); Specific Gravity - Urine >= 1.030 (1.005-1.025)
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
== END 2025-01-10 09:47 | disposition home or self-care (01) ==
LOC: HO.LAB 09:46
DX: J45.50 Severe persistent asthma, uncomplicated (principal); I48.91 Unspecified atrial fibrillation; E78.00 Pure hypercholesterolemia, unspecified; F31.30 Bipolar disorder, current episode depressed, mild or moderate severity, unspecified; F41.9 Anxiety disorder, unspecified; D50.9 Iron deficiency anemia, unspecified; G47.30 Sleep apnea, unspecified; R12 Heartburn
CPT/HCPCS: 36415; 80053; 80061; 81003; 82306; 83540; 84443; 85025

== ENCOUNTER 2025-01-12 09:22 | Outpatient (AMB) | payer OTHER, SELFPAY ==
--- OUTSIDE RECORDS SUMMARY | 2024-11-25 09:30 | XMS_ITS ---
Author Organization [facility] Address [address] [place] [address] Care Team Providers Care Insurance Processor Name Role Phone Kylie Grant MD Primary Care Provider Kevin Gill [phone] REASON FOR VISIT rectal bleeding,fam hx colon ca Encounters Encounter Location Date Provider [place] [facility] [place] [address], [place] [phone] 11/25/2024 Kevin Andrews Plan Of Treatment No Information Progress Notes * PEDRO LUIS DUMONTDOB:[birth year] (44 yo M)Acc No.[id number]:11/25/2024 COLON WITH MAC Patient: PEDRO LUIS BOLES Provider: Sergio Andrews MD :1980 A ge:44 Y S ex:Male Date:11/25/2024 Address:[address] [place], [place] [phone] Pcp:Kylie Grant MD Subjective: * Chief Complaints: [...] 0 11/25/2024 Generated for Arely flower/William/Daviditting on: 0 01/12/2025 11:11 AM EDT
[2025-01-12 09:28] VITALS: BP 102/58; PULSE 67; RESP 18; TEMP 36.2; O2SAT 96; BMI 37.1
--- NOTE | 2025-01-12 09:28 | MHC.PC.OV ---
Vital Signs 01/12/25 09:28 Height 5 ft 8 in Weight 244 lb BMI 37.1 BP 102/58 L Blood Pressure Location Lt brachial Position Sitting Respiration 18 Pulse 67 Pulse Source Pulse Oximeter Temp 97.1 F Temp Source Temporal Artery Scan Pulse Oximetry (%) 96 Oxygen Delivery Method Room Air Intake Visit Reasons: Afib/sleep apnea/asthma/anxiety Acute Dialysis Nurse Required: No Accompanied by: Self / Same As Patient Allergies No Known Allergies Allergy (Verified 01/12/25 09:46) Medication List - Last Reconciled 01/12/25 by JOSEFINA Cueva albuterol sulfate 90 mcg/actuation 2 puffs inhalation Q4-6H PRN ferrous sulfate 324 mg PO DAILY 90 days MDD 324 mg fluticasone propion-salmeterol 100-50 mcg/dose (Advair Diskus) 1 inh inhalation Q12H ibuprofen 600 mg PO TID PRN ipratropium bromide 2 sprays intranasal BID 30 days lorazepam (Ativan) 0.5 mg PO BID PRN metoprolol succinate ER 25 mg PO DAILY trazodone 50 mg PO BEDTIME Tobacco use date assessed: 01/12/25 Dental Screening Dental Screen Date: 01/12/25 Did you have a dental visit in the last 12 months?: No Did you have a dental problem in the last 6 months where you did not have access to dental care?: No Was dental information given to patient?: No HPI Afib/sleep apnea/asthma/anxiety HPI Details The patient is a 44-year-old male presenting for follow-up on anemia, hypertension, and post-ablation recovery. The patient has a history of anemia, which has been stable but persistent. He was advised to take iron supplements but initially refrained due to concerns about constipation, which he experienced previously. He was encouraged to start iron supplements and is manage constipation with increasing fluid intake and MiraLax. The patient also has a history of hypertension, which he is managing through dietary modifications, although he finds it challenging due to family influences on his diet. He is attempting to reduce salt intake and maintain portion control despite familial pressures to consume traditional foods high in sodium. The patient underwent an ablation procedure and reports feeling better overall, though he experiences occasional fatigue and uses an inhaler to manage respiratory symptoms. He is also using a CPAP machine for sleep apnea, which he has adjusted to over time, improving his sleep quality. [facility] Medical History Anemia Anxiety Atrial fibrillation COVID-19 Obese Asthma Surgical History Hx of appendectomy Family History Family/Other Lung cancer Social History Housing: Apartment Alcohol intake: former Patient Tobacco Use Status: Never used Tobacco e-Cigarette/Vaping Use: Never Used Second Hand Smoke Exposure: No Substance Use Type: [employer] Medical service: No Current occupational status: employed Current occupational exposures/hazards: No Cognitive needs: No Hearing needs: No Vision needs: No Questionnaire PHQ-9 Over the last 2 weeks, how often have you been bothered by any of the following problems? 1. Little interest or pleasure in doing things: several days 2. Feeling down, depressed, or hopeless: several days 3. Trouble falling or staying asleep, or sleeping too much: nearly every day 4. Feeling tired or having little energy: more than half the days 5. Poor appetite or overeating: not at all 6. Feeling bad about yourself - or that you are a failure or have let yourself or your family down: not at all 7. Trouble concentrating on things, such as reading the newspaper or watching television: more than half the days 8. Moving or speaking so slowly that other people could have noticed. Or the opposite - being so fidgety or restless that you have been moving around a lot more than usual: more than half the days 9. Thoughts that you would be better off or of hurting yourself in some way: not at all Total score: 11 Depression Screening Interpretation: Positive Depression Screening Done: Yes Source: Developed by Drs. Kevin Waller, Kathrin Hahn, Neal Morelos and colleagues, with an educational rene from [employer]. Thrive Questionnaire Date Thrive assessed: 01/12/25 I am a: Patient What is your living situation today?: I have a place to live, but I am worried about losing it in the future Within the past 12 months, did the food you bought not last and you didn't have the money to get more?: Sometimes True Within the past 12 months, did you worry whether your food would run out before you got money to buy more?: Sometimes True Do you have trouble paying for medicines?: Yes Do you have trouble getting transportation to medical appointments?: No Do you have trouble paying your heating and electricity bill?: No Do you have trouble taking care of your child, family member or friend?: No Do you have trouble with day-to-day activities such as bathing, preparing meals, shopping, managing finances, etc.?: No Are you currently unemployed and looking for a job?: No Are you interested in more education?: Yes Currently or been in a relationship where the following occur: No concerns reported THRIVE Score: 3 AUDIT C Alcohol Use Questionnaire (AUDIT-C) 1. How often do you have a drink containing alcohol?: Never Total Score: 0 Score Reviewed/Action Taken: No CAM-7 AMB Questionnaire CAM-7 Date CAM - 7 assessed: 01/12/25 Feeling nervous, anxious, or on edge: 2 = More than half the days Not being able to stop or control worryin = Several days Worrying too much about different things: 1 = Several days Trouble relaxin = Nearly every day Being so restless that it is hard to sit still: 2 = More than half the days Becoming easily annoyed or irritable: 0 = Not at all Feeling afraid as if something awful might happen: 0 = Not at all Total CAM-7 score (0-4 normal; 5-9 mild; 10-14 moderate; 15-21 severe): 9 Source: Developed by Drs. Kevin Waller, Kathrin Hahn, Neal Morelos and colleagues, with an educational rene from [employer]. Review of Systems Const Reports fatigue (Sometimes) and Denies headache(s) Eyes Denies loss of vision ENT Denies vertigo, Denies dizziness, Denies headache(s) and Denies sore throat Card Denies chest pain, Denies leg edema and Denies lightheadedness Resp Denies cough, Denies hemoptysis and Denies wheezing GI Denies abdominal pain, Denies melena, Reports constipation (On and off), Denies diarrhea and Denies vomiting Denies dysuria, Denies urinary frequency and Denies urinary urgency Musc Denies arthralgias, Denies joint swelling, Denies numbness and Denies tingling Neuro Denies Abnormal speech present, Denies behavioral changes, Denies vertigo, Denies dizziness, Denies headache(s), Denies loss of vision, Denies memory loss, Denies numbness and Denies tingling Psych Reports anxiety (Improved), Denies behavioral changes, Denies depression, Denies memory loss and Denies panic attacks Endo Reports fatigue (Sometimes) Helder/Lymph Denies easy bleeding and Denies easy bruising Aller/Immun Denies wheezing Physical exam (Primary Care) Vital Signs: Last Vital Signs Temp 97.1 F 01/12/25 09:28 Pulse 67 01/12/25 09:28 Resp 18 01/12/25 09:28 BP 102/58 L 01/12/25 09:28 Pulse Ox 96 01/12/25 09:28 Oxygen Delivery Method Room Air 01/12/25 09:28 BMI result Body Mass Index 37.1 Tobacco/Smoking Status: Tobacco use Status Tobacco use date assessed 01/12/25 01/12/25 09:31 Patient Tobacco Use Status Never used Tobacco 01/12/25 09:31 e-Cigarette/Vaping Use Never Used 01/12/25 09:31 PHQ-9: PHQ-9 Score PHQ-9: Total score 11 01/12/25 09:56 Depression Screening Interpretation: Positive Thrive Assessment: Date of Thrive Assessment Date Thrive assessed 01/12/25 01/12/25 09:31 Currently or been in a relationship where the following occur: No concerns reported Const General: healthy appearing, no acute distress, alert and awake Nutritional Appearance: well nourished Orientation/consciousness: oriented to person, oriented to place and oriented to time HENMT Ears: TM's normal bilaterally General nose exam: Normal nasal mucous membranes and turbinates present Eyes Conjunctivae: conjunctivae normal Sclerae: sclerae normal Pupils: Equal, round and reactive pupils present Neck Neck: Yes no lymphadenopathy and Yes no JVD Thyroid: Thyroid normal Carotids: no bruits Resp Effort & Inspection: normal respiratory effort and not tachypneic Auscultation: no crackles, no rales, no rhonchi and no wheezes Cardio Rate: regular rate Rhythm: regular rhythm Heart sounds: no murmurs and normal S1 and S2 GI Palpation (GI): Soft to palpation, nontender, no hepatomegaly and no splenomegaly Auscultation: normal bowel sounds Skin General skin exam: no rashes or lesions noted and dry skin Neuro General: oriented to person, oriented to place and oriented to time Cranial nerves: Yes Equal, round and reactive pupils present Speech: No Abnormal speech present Gait exam (Neuro): Normal gait present Motor exam (neuro): no tremor noted Extrem Right upper extremity: full ROM Left upper extremity: full ROM Right lower extremity: full ROM; no edema Left lower extremity: full ROM; no edema Psych Mental Status: mental status grossly normal Speech and movement: Normal speech and movement present Affect: normal affect Attitude: cooperative Thought process: Normal thought process present Results Reviewed Results Reviewed: Laboratory Tests 01/10/25 01/10/25 09:52 09:56 WBC 5.3 RBC 4.50 L Hgb 12.3 L Hct 38.3 L MCV 85.1 MCH 27.3 MCHC 32.1 RDW 13.2 Plt Count 234 Sodium 144 Potassium 3.9 Chloride 110 H Carbon Dioxide 28 Anion Gap 10 L BUN 19 H Creatinine 1.00 Estimated GFR > 60 Fasting Glucose 108 H Calcium 8.7 Iron 92 TIBC 291 % Saturation 32 Unsat Iron Binding 199 Total Bilirubin 0.3 AST 17 ALT 21 Alkaline Phosphatase 53 Total Protein 6.9 Albumin 4.1 Triglycerides 95 Cholesterol 188 LDL Cholesterol, Calc 131 H HDL Cholesterol 38 L 25-OH Vitamin D Total 41.6 TSH 2.26 Urine Color Yellow Urine Appearance Clear Urine pH 5.5 Ur Specific [place] >= 1.030 H Urine Protein Negative Urine Glucose (UA) Negative Urine Ketones Negative Urine Blood Negative Urine Nitrite Negative Ur Leukocyte Esterase Negative Coding Level of Care Code Est Pt Level 4 (30979) Diagnoses Anxiety F41.9 Atrial fibrillation, unspecified type I48.91 Atrial fibrillation type: unspecified Elevated LDL cholesterol level E78.00 Heart burn R12 Iron deficiency anemia, unspecified iron deficiency anemia type D50.9 Anemia type: iron deficiency Iron deficiency anemia type: unspecified iron deficiency Severe persistent asthma, unspecified whether complicated J45.50 Asthma complication type: unspecified Asthma persistence: persistent Asthma severity: severe Sleep apnea, unspecified type G47.30 Sleep apnea type: unspecified type Blurry vision H53.8 Time Spent (min) 41 Assessment & Plan Assessment & Plan (1) Anxiety: Comment: on metoprolol? with svt? PAF? Code(s): F41.9 - Anxiety disorder, unspecified Category: Medical Plan: Encouraged CBT, still remains adamant about not wanting to speak to a therapist/psychiatrist The patient also has a history of bipolar 1, we will continue to encourage professional evaluation Reports staying busy is his strategies Continue lorazepam 0.5 mg b.i.d. p.r.n. (2) Atrial fibrillation: Comment: Patient with PAF, being treated with flecainide 100mg BID and Metoprolol 25mg daily by Cardiology Code(s): I48.91 - Unspecified atrial fibrillation Category: Medical Qualifiers: Atrial fibrillation type: unspecified Qualified Code(s): I48.91 - Unspecified atrial fibrillation Plan: The patient reports improvement post-ablation but should continue monitoring for any symptoms such as fatigue. Use of inhalers as needed is advised to manage respiratory symptoms. Denies an irregular heart sensation since ablation. Continues metoprolol succinate ER 25 mg daily. Reports that he is not taking flecainide 100mg anymore. Avoid triggers, will continue to monitor. (3) Elevated LDL cholesterol level: Code(s): E78.00 - Pure hypercholesterolemia, unspecified Category: Medical Plan: Triglycerides 95, total cholesterol 188, LDL 131-decreased from 147, HDL 38-decreased from 42. Reports that he struggled at home recovering from his ablation as family members kept bringing him food and would not take no for an answer. Reinforced low cholesterol diet and activity as tolerated. Will recheck lipid panel in 3 months. (4) Heart burn: Code(s): R12 - Heartburn Category: Medical Plan: Reinforced dietary restrictions Recently paused his PPI therapy; he is still doing well, denies heartburn We will continue to monitor (5) Anemia: Code(s): D64.9 - Anemia, unspecified Category: Medical Qualifiers: Anemia type: iron deficiency Iron deficiency anemia type: unspecified iron deficiency Qualified Code(s): D50.9 - Iron deficiency anemia, unspecified Plan: Continue to be anemic, but stable. He has stopped iron supplement due to constipation. Plans to restart ferrous sulfate 324 mg daily and maintain miralax 17 gm daily/increase fluids intake to aid in preventing constipation. (6) Asthma: Comment: Mild intermittent bronchial asthma since childhood , seems to be controlled Code(s): J45.909 - Unspecified asthma, uncomplicated Category: Medical Qualifiers: Asthma complication type: unspecified Asthma persistence: persistent Asthma severity: severe Qualified Code(s): J45.50 - Severe persistent asthma, uncomplicated Plan: Stable,recently he was started on advair Diskus 100-50 mcg/dose 1 inh Q12H along with his rescue inahler Follow up with pulmonology as scheduled (7) Sleep apnea: Comment: He is using cpap more consistently. Code(s): G47.30 - Sleep apnea, unspecified Category: Medical Qualifiers: Sleep apnea type: unspecified type Qualified Code(s): G47.30 - Sleep apnea, unspecified Plan: The patient should continue using the CPAP machine to manage sleep apnea, which has shown improvement in sleep quality. Follow-up assessments are recommended to ensure continued efficacy. Follow up with pulmonology as scheduled (8) Blurry vision: Code(s): H53.8 - Other visual disturbances Category: Medical Plan: The patient was seen a [facility] on 12/13/24. Noted in to have meibomian gland dysfunction all 4 lids. Presbyopia OU. The patient was given a new glasses RX Plan Follow up in 3 months Orders: Orders Comprehensive [place]. Panel Fast 3 Months D50.9 - Iron deficiency anemia, unspecified, F41.9 - Anxiety disorder, unspecified, G47.30 - Sleep apnea, unspecified, I48.91 - Unspecified atrial fibrillation, J45.50 - Severe persistent asthma, uncomplicated, R12 - Heartburn, Z01.810 - Encounter for preprocedural cardiovascular examination UA CC w/rflx Micro + Cult 3 Months D50.9 - Iron deficiency anemia, unspecified, F41.9 - Anxiety disorder, unspecified, G47.30 - Sleep apnea, unspecified, I48.91 - Unspecified atrial fibrillation, J45.50 - Severe persistent asthma, uncomplicated, R12 - Heartburn, Z01.810 - Encounter for preprocedural cardiovascular examination Vitamin D 25-OH Total 3 Months D50.9 - Iron deficiency anemia, unspecified, F41.9 - Anxiety disorder, unspecified, G47.30 - Sleep apnea, unspecified, I48.91 - Unspecified atrial fibrillation, J45.50 - Severe persistent asthma, uncomplicated, R12 - Heartburn, Z01.810 - Encounter for preprocedural cardiovascular examination Lipid Panel 3 Months D50.9 - Iron deficiency anemia, unspecified, F41.9 - Anxiety disorder, unspecified, G47.30 - Sleep apnea, unspecified, I48.91 - Unspecified atrial fibrillation, J45.50 - Severe persistent asthma, uncomplicated, R12 - Heartburn, Z01.810 - Encounter for preprocedural cardiovascular examination Complete Blood Count Auto Diff 3 Months D50.9 - Iron deficiency anemia, unspecified, F41.9 - Anxiety disorder, unspecified, G47.30 - Sleep apnea, unspecified, I48.91 - Unspecified atrial fibrillation, J45.50 - Severe persistent asthma, uncomplicated, R12 - Heartburn, Z01.810 - Encounter for preprocedural cardiovascular examination IRON PROFILE 3 Months D50.9 - Iron deficiency anemia, unspecified, F41.9 - Anxiety disorder, unspecified, G47.30 - Sleep apnea, unspecified, I48.91 - Unspecified atrial fibrillation, J45.50 - Severe persistent asthma, uncomplicated, R12 - Heartburn, Z01.810 - Encounter for preprocedural cardiovascular examination TSH reflex Free T4 3 Months D50.9 - Iron deficiency anemia, unspecified, F41.9 - Anxiety disorder, unspecified, G47.30 - Sleep apnea, unspecified, I48.91 - Unspecified atrial fibrillation, J45.50 - Severe persistent asthma, uncomplicated, R12 - Heartburn, Z01.810 - Encounter for preprocedural cardiovascular examination
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
== END 2025-01-12 10:04 | disposition home or self-care (01) ==
LOC: HO.HMCH 09:24
PROVIDERS: PCP Internal Medicine
DX: I48.91 Unspecified atrial fibrillation (principal); J45.50 Severe persistent asthma, uncomplicated; F41.9 Anxiety disorder, unspecified; E78.00 Pure hypercholesterolemia, unspecified; R12 Heartburn; D50.9 Iron deficiency anemia, unspecified; G47.30 Sleep apnea, unspecified; H53.8 Other visual disturbances

== ENCOUNTER 2025-01-28 10:01 | Outpatient (AMB) | payer OTHER, SELFPAY ==
--- OUTSIDE RECORDS SUMMARY | 2024-11-25 09:30 | XMS_ITS ---
Author Organization [facility] Address [address] [place] [address] Care Team Providers Care Anesthesiology Tech Name Role Phone Kylie Grant MD Primary Care Provider Kevin Gill [phone] REASON FOR VISIT rectal bleeding,fam hx colon ca Encounters Encounter Location Date Provider Diagnosis [facility] [place] [address] [place], [place] [phone] 11/25/2024 Kevin Andrews Plan Of Treatment No Information Progress Notes * PEDRO LUIS DUMONTDOB:[birth year] (44 yo M)Acc No.[id number]:11/25/2024 COLON WITH MAC Patient: PEDRO LUIS BOLES Provider: Sergio Andrews MD :1980 A ge:44 Y S ex:Male Date:11/25/2024 Address:[address] [place], [place] [phone] Pcp:Kylie Grant MD Subjective: * Chief Complaints: [...] 11/25/2024 Generated for Arely flower/William/Daviditting on: 0 01/28/2025 11:11 AM EDT
--- NOTE | 2025-01-28 10:04 | MHC.OFFVIS ---
Vital Signs 01/28/25 10:05 Height 5 ft 8 in Weight 249 lb 6 oz BMI 37.9 BP 110/78 Blood Pressure Location Lt brachial Position Sitting Pulse 73 Pulse Source Pulse Oximeter Pulse Oximetry (%) 98 Oxygen Delivery Method Room Air Intake Visit Reasons: 3 mnts f/u Intake Note: Patient presents follow up LIBRA. Hard time using machine looking for maybe ENT for sinus. Compliance in chart(90/90days, >=4hrs 98%, Average Usage-8hr 5min, Med Pressure- 9.8, Med Leaks- 2.9, AHI-0.6) Accompanied by: Self / Same As Patient Allergies No Known Allergies Allergy (Verified 01/28/25 10:07) HPI Comments Details: 44 y/o r. handed man with PAF/SVT comes for f/u of sleep apnea. Interval medical history: He had cardiac ablation at [facility] Dec 15, 2024 due to SVTS, on metropolol 12.5mg and Ativan PRN. LIBRA compliance October 2024- Jan 2025 Total use is 90/90 days and >4hours is 98% avg use is 8 hours and 5min Med press 9.8cmH20 and Med Leaks are 2.9cmH20 AHI is 0.6 He is training himself to become a nose breather, and he uses a travel pillow to elevate his head Uses himalayan salt with mint oil nasal stick, and saline nasal sprays every other day for congestion, he denies rhinorrhea, denies headaches.He goes to bed at 11:30 and wakes up 2x a night for the bathroom and keeps his urinal by the bed. He wakes up at 4am and re-adjust his mask and is able to sleep until 8am. He takes trazadone 50mg and melatonin 3mg prn difficult nights with insomnia. He no longer sleeps on the couch and feels energetic in the morning with the use of his cpap. He eats a clean, nutrient dense diet. RLS symptoms: He has RLS bilaterally in his feet which keeps him up all hours of night, with paresthesias and an uncomfortable sensation radiating down the legs. He has one cup of coffee 2x per week, which helps him to be more productive. He has acid reflux, managed with diet and lifestyle. Will f/u with colonoscopy at GI. He has a f/u with Pulmonology for PFT. STM is foggy, he forgets what he had for breakfast, conversations and names. Though not overly concerned. Mood is stable. [facility] Medical History Anemia Anxiety Atrial fibrillation COVID-19 Obese Asthma Surgical History Hx of appendectomy Family History Family/Other Lung cancer Social History Housing: Apartment Alcohol intake: former Patient Tobacco Use Status: Never used Tobacco e-Cigarette/Vaping Use: Never Used Second Hand Smoke Exposure: No Substance Use Type: Caffiene service: No Current occupational status: employed Current occupational exposures/hazards: No Cognitive needs: No Hearing needs: No Vision needs: No Physical Exam Vital Signs: Last Vital Signs Pulse 73 01/28/25 10:05 BP 110/78 01/28/25 10:05 Pulse Ox 98 01/28/25 10:05 Oxygen Delivery Method Room Air 01/28/25 10:05 BMI result Body Mass Index 37.9 Const General: cooperative, comfortable and no acute distress Nutritional Appearance: obese (BMI is 36.8) Orientation/consciousness: patient oriented x3 HEENT Face and sinus: Yes normal facial exam and Yes face symmetric Throat: Yes other ([place] score 4) Eyes Pupils: Equal, round and reactive pupils present Neck Neck: Yes full ROM and Yes supple Resp Effort & Inspection: normal respiratory effort and able to speak in complete sentences Neuro General: patient oriented x3 and moves all extremities Cranial nerves: Yes CN's II-XII intact bilaterally, Yes Facial sensation intact/muscles of mastication intact, Yes Equal, round and reactive pupils present, Yes Normal accommodation reflex present, Yes Normal facial strength present, Yes Midline tongue present, Yes Ability to bilaterally rotate head present and Yes Ability to bilaterally elevate shoulders present Gait exam (Neuro): Normal gait present Motor exam (neuro): 5/5 motor strength present throughout and Normal motor muscle tone present throughout Psych Appearance: grossly normal Speech and movement: Normal speech and movement present Attitude: cooperative Insight: Good insight present (Psych) Judgement: Good judgement present (Psych) Results Reviewed Results Reviewed: LIBRA compliance October 2024- Jan 2025 Total use is 90/90 days and >4hours is 98% avg use is 8 hours and 5min Med press 9.8cmH20 and Med Leaks are 2.9cmH20 AHI is 0.6 Assessment & Plan Assessment & Plan (1) LIBRA on CPAP: Code(s): G47.33 - Obstructive sleep apnea (adult) (pediatric) Category: Medical (2) LIBRA (obstructive sleep apnea): Code(s): G47.33 - Obstructive sleep apnea (adult) (pediatric) Category: Medical (3) RLS (restless legs syndrome): Code(s): G25.81 - Restless legs syndrome Category: Medical (4) Sleep apnea: Comment: He is using cpap more consistently. Code(s): G47.30 - Sleep apnea, unspecified Category: Medical Qualifiers: Sleep apnea type: unspecified type Qualified Code(s): G47.30 - Sleep apnea, unspecified (5) Anxiety: Comment: on metoprolol? and ativan for svts, now post ablation and improving Code(s): F41.9 - Anxiety disorder, unspecified Category: Medical (6) Fatigue due to sleep pattern disturbance: Code(s): R53.83 - Other fatigue; G47.9 - Sleep disorder, unspecified Category: Medical Plan LIBRA on cpap, compliance is reviewed with pt. Anemia start ferrous sulfate 325mg PO after the labs for Iron profile. RLS Check Ferittin level B12/ Iron / Folate , magnalife otc, and weighted blanket, will assess after ablation to administer supplement or dopamine agonist. Start Gabapentin 100mg po daily at night for paresthesias. Ventral Hernia f/u w/ GI and [facility]. PFTs, f/u with pulmonology. ENT for chronic congestion of nasal passages, deviated septum, polyps, cysts etc. Orders: Orders PFT pulmonary function test Today G47.33 - Obstructive sleep apnea (adult) (pediatric) Referrals Ear/Nose/Throat Referral G47.30 - Sleep apnea, unspecified, G47.33 - Obstructive sleep apnea (adult) (pediatric) Medications: New gabapentin 100 mg PO BEDTIME 90 caps 0RF 3 months Patient Instructions: Sleep Hygiene provided: set a scheduled bedtime and wake time to help regulate the circadian rhythm and balance the release of pituitary hormones. Sleep in a dark room, temperatures below 68 degrees, and no devices n bed. Limit caffeinated products 6 hours prior to bed, and limit fluids 2-4 hours prior to bed. Gentle night yoga, diffusing essential oils, and playing soft music can be relaxing. Coding Level of Care Code Est Pt Level 4 (05644) Diagnoses LIBRA on CPAP G47.33 LIBRA (obstructive sleep apnea) G47.33 RLS (restless legs syndrome) G25.81 Sleep apnea, unspecified type G47.30 Sleep apnea type: unspecified type Anxiety F41.9 Fatigue due to sleep pattern disturbance R53.83; G47.9
[2025-01-28 10:05] VITALS: BP 110/78; PULSE 73; O2SAT 98; BMI 37.9
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
== END 2025-01-28 10:59 | disposition home or self-care (01) ==
LOC: HO.HSMS 10:02
PROVIDERS: PCP Internal Medicine; Visit Provider Physician Assistant Medical
DX: G47.33 Obstructive sleep apnea (adult) (pediatric) (principal); G25.81 Restless legs syndrome; G47.30 Sleep apnea, unspecified; F41.9 Anxiety disorder, unspecified; R53.83 Other fatigue; G47.9 Sleep disorder, unspecified
CPT/HCPCS: 99214

== ENCOUNTER 2025-02-18 01:14 | Emergency (ER) | payer OTHER, SELFPAY ==
--- NOTE | ~2025-02-18 | CT_ITS ---
CLINICAL HISTORY: New Onset H a; Family Hx aneurysms Exam: 1. CT Head without contrast. 2. CT angiography head and neck with contrast. MIP postprocessing. Comparison: None provided Findings: HEAD CT: The size and shape of the ventricular system is within normal limits. Attenuation of the brain parenchyma is within normal limits. Khan-white differentiation is well preserved. No midline shift or mass effect. No intracranial hemorrhage. No calvarial fractures. HEAD AND NECK CTA: Aortic arch and cervical great vessels are patent. Intracranial arteries are patent. No aneurysm, dissection, or occlusion. No abnormal intracranial enhancement. The visualized thyroid gland is unremarkable. No cervical mass or fluid collection. Lung apices clear. No acute fracture. IMPRESSION: 1. Unremarkable head CT. 2. Patent head and neck CTA. This document has been electronically signed by: Fede Arellano MD on 02/18/2025 02:55:27
[2025-02-18 01:17] VITALS: BP 139/76; PULSE 66; RESP 20; TEMP 36.5; O2SAT 99; BMI 37.2
[2025-02-18 01:36] LABS: MANUAL DIFF FLAG NO
[2025-02-18 01:37] LABS: Hematocrit 41.5 % (42.0-52.0); Hemoglobin 13.4 g/dl (14.0-18.0); Imm Gran Abs Auto 0.03 X10*3/uL (0.00-0.03); Imm Gran Pct Auto 0.3 % (0.0-0.4); Lymphocytes Absolute Auto 2.9 X10*3/uL (1.2-4.9); Mean Corpuscular HGB Conc 32.3 g/dl (31.0-36.0); Mean Corpuscular Hemoglobin 27.0 pg (27.0-33.0); Mean Corpuscular Volume 83.5 fL (80.0-98.0); NRBC Abs Auto 0.000 X10*3/uL (0.0-0.012); NRBC Pct Auto 0.0 /100WBC (0.0-0.2); Platelet Count 268 X10*3/uL (160-400); Red Blood Count 4.97 X10*6/uL (4.60-5.80); White Blood Count 10.3 X10*3/uL (4.8-10.8)
[2025-02-18 02:00] LABS: Alanine Aminotransferase 31 U/L (0-40); Albumin Level 4.4 g/dL (3.5-5.0); Anion Gap 13 (12-20); Aspartate Amino Transferase 23 U/L (5-37); Blood Urea Nitrogen 22 mg/dL (9-16); Calcium 9.5 mg/dL (8.4-10.2); Carbon Dioxide 26 mmol/L (22-29); Chloride 107 mmol/L (96-108); Creatinine Clr Calc Pharmacy 105.1; Estimated Glomerular Filt Rate > 60; Potassium 4.2 mmol/L (3.3-5.1); Sodium 142 mmol/L (135-145); Total Protein 7.3 g/dL (6.5-8.0)
[2025-02-18 02:13] LABS: Alkaline Phosphatase 57 U/L (39-117)
[2025-02-18 02:18] VITALS: RESP 20
[2025-02-18] MEDS: iohexoL 350 MG/ML 100 ML INFUS..BTL IV (02:28)
--- NOTE | 2025-02-18 02:41 | ED_ITS ---
HPI - Headache General Chief Complaint: Headache Stated Complaint: migraine Time Seen by Provider: 02/18/25 01:31 Source: patient Mode of arrival: ambulatory Limitations: no limitations History of Present Illness ED Provider: Harris CHRISTINE HPI Narrative: The patient is a 45-year-old male presenting to the emergency department reporting for the past week he has been experiencing intermittent waxing and waning headache which initially responded partially to OTC NSAIDs. Patient denies history of chronic headaches, reports any previous headaches have resolved after 1 or 2 doses of ibuprofen and not recurred. The patient reports despite using NSAIDs over the past week his headache has persisted and is now increasing in severity. The patient reports over the past 2 days he has been taking multiple doses of ibuprofen without any relief, today he began experiencing associated nausea, photophobia, and increasing throbbing headache, mostly in the frontal region. Patient has a friend with a reported history of migraine headaches, gave the patient a dose of sumatriptan. Patient reports despite ibuprofen this morning, sumatriptan at 20:00, and both 81 mg aspirin and 400 mg ibuprofen at midnight, his headache is persistent and now intolerable. The patient reports he also had noted some viral URI type symptoms, with chest congestion, intermittent nonproductive cough, and sinus congestion, patient reports he did attempt taking OTC Tylenol cold and flu a few days ago without relief. The patient denies associated fever, vomiting, diarrhea, chest pain, shortness of breath, hemoptysis, pleurisy, abdominal pain, recent sick contacts, recent trauma, focal neurological deficit. The patient reports a history of atrial fibrillation for which he was treated with ablation in December, took Eliquis for 3 weeks before and after the procedure, is not currently anticoagulated. The patient also reports a family history of aneurysms. Related Data Previous Rx's ?Medication ?Instructions ?Recorded albuterol sulfate 90 mcg/actuation 2 puff inhalation Q 4-6H PRN 06/01/21 aerosol inhaler shortness of breath or wheez ing #8.5 grams ibuprofen 600 mg tablet 600 mg PO TID PRN fever or p ain 05/23/24 #20 tabs lorazepam 0.5 mg tablet (Ativan) 0.5 mg PO BID PRN anx iety #10 tabs 06/08/24 metoprolol succinate 25 mg 25 mg PO DAILY #90 tabs 10/27 tablet,extended release 24 hr trazodone 50 mg tablet 50 mg PO BEDTIME for insomni a #90 10/15/24 tabs fluticasone 100 mcg-salmeterol 50 1 inh inhalation Q12 H #60 ea 10/21/24 mcg/dose blistr powdr for inhalation (Advair Diskus) ferrous sulfate 324 mg (65 mg 324 mg PO DAILY anemia 9 0 days #90 11/25/24 iron) tablet,delayed release tabs ipratropium bromide 21 mcg (0.03 2 spray intranasal BI D for 01/17/25 %) nasal spray congestion #90 mL gabapentin 100 mg capsule 100 mg PO BEDTIME 3 months # 90 caps 01/28/25 Allergies Allergy/AdvReac Type Severity Reaction Status Date / Time No Known Allergies Allergy Verified 02/18/25 01:20 Review of Systems 2 Review of Systems: Yes all other systems are reviewed and are negative [facility] Past Medical History Medical History Anemia Anxiety Atrial fibrillation COVID-19 Obese Asthma Surgical History Hx of appendectomy Family History Family History Family/Other Lung cancer Social History Social History Housing: Apartment Alcohol intake: former Patient Tobacco Use Status: Never used Tobacco Smoked in Last 30 Days: No e-Cigarette/Vaping Use: Never Used Second Hand Smoke Exposure: No Use of substances other than those prescribed or required for medical reasons: No Substance Use Type: Caffiene Advance Directives: No service: No Current occupational status: employed Current occupational exposures/hazards: No Cognitive needs: No Hearing needs: No Vision needs: No Physical Exam 2 Vital Signs: Vital Signs: Last Vital Signs Temp 97.9 F 02/18/25 04:13 Pulse 70 02/18/25 04:13 Resp 16 02/18/25 04:13 BP 125/84 02/18/25 04:13 Pulse Ox 98 02/18/25 04:13 O2 Del Method Room Air 02/18/25 04:13 BMI result Body Mass Index 37.2 CONSTITUTIONAL: The patient appears non-toxic, well nourished and in no acute distress. Vital signs as documented. HEAD: Atraumatic, normocephalic. EYES: EOMs intact, pupils equal and reactive to light, conjunctiva clear, no exudate. ENT: Nares patent, no discharge. Airway patent, no audible stridor, visible mucosa is pink and moist without noted lesions. NECK: Full nonpainful range of motion, no nuchal rigidity. Trachea is midline, no obvious masses or gross abnormalities. CHEST: Symmetric movement, normal appearance. LUNGS: LS present and CTAB, no w/r/r. Non-labored work of breathing. CARDIAC: Regular Rhythm, S1/S2 appreciated, no murmurs, rubs or gallops. ABDOMEN: Abdomen soft and non-tender x4 quadrants, no palpable masses or organomegaly. : Deferred. EXTREMITIES: Normal tone, moves all extremities spontaneously without reported pain. No obvious acute injury or deformity noted. NEURO: Alert and oriented x3, CN II-XII intact. Cerebellar Functioning intact. Strength 5/5 x4. No sensory or motor deficits. Speech clear and appropriate. PSYCH: normal affect, appropriate eye contact, fluid speech, with appropriate response to questioning. No reported suicidality or homicidality. SKIN: Warm, dry, color appropriate, normal turgor. No rashes noted. Medications Administered Discontinued Medications Generic Name Dose Route Start Last Admin Trade Name Freq PRN Reason Stop Dose Admin Acetaminophen 975 mg 02/18/25 03:06 02/18/25 03:29 Acetaminophen 325 Mg Tablet PO 02/18/25 03:07 975 mg ONCE ONE Administration Diphenhydramine HCl 50 mg 02/18/25 03:06 02/18/25 03:29 Diphenhydramine Hcl 50 Mg/Ml Vial IVPUSH 02/18/25 03:07 50 mg ONCE ONE Administration Sodium Chloride 1,000 mls @ 999 mls/hr 02/18/25 02:15 02/18/25 02:15 Ns IV 02/18/25 03:15 999 mls/hr .Q1H1M SHARMIN Administration Sodium Chloride 1,000 mls @ 999 mls/hr 02/18/25 03:15 02/18/25 03:29 Ns IV 02/18/25 04:15 999 mls/hr .Q1H1M SHARMIN Administration Iohexol 100 ml 02/18/25 02:27 02/18/25 02:28 Iohexol 350 Mg/Ml 100 Ml Infus..Btl IV 02/18/25 02:28 75 ml ONCE ONE Administration Metoclopramide HCl 10 mg 02/18/25 03:06 02/18/25 03:29 Metoclopramide Hcl 10 Mg/2 Ml Vial IVPUSH 02/18/25 03:07 10 mg ONCE ONE Administration Morphine Sulfate 4 mg 02/18/25 02:09 02/18/25 02:18 Morphine Sulfate 4 Mg/Ml Cartridge IVPUSH 02/18/25 02:10 4 mg ONCE ONE Administration Protocol Ondansetron HCl 4 mg 02/18/25 02:09 02/18/25 02:18 Ondansetron Hcl 4 Mg/2 Ml Vial IVPUSH 02/18/25 02:10 4 mg ONCE ONE Administration Medical Decision Making Medical Decision Making MDM Narrative: 2:41 AM 02/18/2025 (Jignesh CHRISTINE): The patient is a 45-year-old male presenting to the emergency department reporting for the past week he has been experiencing intermittent waxing and waning headache which initially responded partially to OTC NSAIDs. Patient denies history of chronic headaches, reports any previous headaches have resolved after 1 or 2 doses of ibuprofen and not recurred. The patient reports despite using NSAIDs over the past week his headache has persisted and is now increasing in severity. The patient reports over the past 2 days he has been taking multiple doses of ibuprofen without any relief, today he began experiencing associated nausea, photophobia, and increasing throbbing headache, mostly in the frontal region. Patient has a friend with a reported history of migraine headaches, gave the patient a dose of sumatriptan. Patient reports despite ibuprofen this morning, sumatriptan at 20:00, and both 81 mg aspirin and 400 mg ibuprofen at midnight, his headache is persistent and now intolerable. The patient reports he also had noted some viral URI type symptoms, with chest congestion, intermittent nonproductive cough, and sinus congestion, patient reports he did attempt taking OTC Tylenol cold and flu a few days ago without relief. The patient denies associated fever, vomiting, diarrhea, chest pain, shortness of breath, hemoptysis, pleurisy, abdominal pain, neck pain, neck stiffness, maximal intensity at onset, recent sick contacts, recent trauma, focal neurological deficit. The patient reports a history of atrial fibrillation for which he was treated with ablation in December, took Eliquis for 3 weeks before and after the procedure, is not currently anticoagulated. The patient also reports a family history of aneurysms. On exam the patient appears uncomfortable but in no acute distress, no focal neurological deficit, no other acute findings. The patient will be evaluated with CT head, and CTA head and neck to rule out acute intracranial pathology, and also to evaluate for possible sinusitis. Pending unremarkable CT head we will consider treatment with migraine cocktail versus antibiotics for sinusitis if evident on CT. 3:00 AM 02/18/2025 (Jignesh CHRISTINE): The patient's laboratory evaluation shows no leukocytosis, significant anemia, or electrolyte abnormality, LFTs are unremarkable. The patient's BUN is mildly elevated at 22, possibly representing dehydration. The patient's CT head and CTA head and neck are unremarkable, no aneurysm, hemorrhage, or occlusion. No mention of severe sinus disease, on this provider's review there was no significant opacification of the sinuses. Patient will be treated with migraine cocktail including additional IV fluid hydration, and we will reassess. 5:10 AM 02/18/2025 (Jignesh CHRISTINE): The patient's COVID and influenza swabs are negative. The patient is reporting resolution of symptoms following IV fluid hydration and migraine cocktail. Patient states he is comfortable with plan for discharge home and outpatient follow up with PCP as needed. Admission/Observation Consideration of admission/observation: Escalation of care including admission/observation considered Lab Data MDM Lab Attestation statement: I reviewed the patient's lab results. 02/18/25 01:29 02/18/25 01:29 Labs: Lab Results 02/18/25 02/18/25 Range/Units 01:29 04:16 WBC 10.3 (4.8-10.8) X10*3/uL RBC 4.97 (4.60-5.80) X10*6/uL Hgb 13.4 L (14.0-18.0) g/dl Hct 41.5 L (42.0-52.0) % MCV 83.5 (80.0-98.0) fL MCH 27.0 (27.0-33.0) pg MCHC 32.3 (31.0-36.0) g/dl RDW 12.9 (11.0-16.0) % Plt Count 268 (160-400) X10*3/uL MPV 9.1 L (9.4-12.4) fL Immature Gran % (Auto) 0.3 (0.0-0.4) % Neut % (Auto) 61.5 (45-73) % Lymph % (Auto) 28.4 (20-40) % Cooper % (Auto) 8.1 (2-11) % Eos % (Auto) 1.4 (0-4) % Baso % (Auto) 0.3 (0-2) % Lymph # (Auto) 2.9 (1.2-4.9) X10*3/uL Cooper # (Auto) 0.8 (0.1-1.2) X10*3/uL Eos # (Auto) 0.1 (0.0-0.4) X10*3/uL Baso # (Auto) 0.0 (0.0-0.2) X10*3/uL Abs Immat Gran (auto) 0.03 (0.00-0.03) X10*3/uL Absolute Neuts (auto) 6.3 (2.0-8.3) x10*3/uL Absolute Nucleated RBC 0.000 (0.0-0.012) X10*3/uL Nucleated RBC % (auto) 0.0 (0.0-0.2) /100WBC Sodium 142 (135-145) mmol/L Potassium 4.2 (3.3-5.1) mmol/L Chloride 107 (96-108) mmol/L Carbon Dioxide 26 (22-29) mmol/L Anion Gap 13 (12-20) BUN 22 H (9-16) mg/dL Creatinine 1.05 (0.5-1.4) mg/dL Estim Creat Clear Calc 105.1 Estimated GFR > 60 Random Glucose 107 (60-115) mg/dL Calcium 9.5 D (8.4-10.2) mg/dL Total Bilirubin 0.2 (0.0-1.0) mg/dL AST 23 (5-37) U/L ALT 31 (0-40) U/L Alkaline Phosphatase 57 (39-117) U/L Total Protein 7.3 (6.5-8.0) g/dL Albumin 4.4 (3.5-5.0) g/dL COVID-19 (HERMAN) Negative (Negative) COVID-19 Clin Com See Note Influenza Type A (ISABELLA) Negative (Negative) Influenza Type B (ISABELLA) Negative (Negative) Influenza A & B Note See Note Radiology Impression Discussion of test interpretation with radiology: I have reviewed the radiologist's reading. Radiologist Impression: Exam: 1. CT Head without contrast. 2. CT angiography head and neck with contrast. MIP postprocessing. Comparison: None provided Findings: HEAD CT: The size and shape of the ventricular system is within normal limits. Attenuation of the brain parenchyma is within normal limits. Khan-white differentiation is well preserved. No midline shift or mass effect. No intracranial hemorrhage. No calvarial fractures. HEAD AND NECK CTA: Aortic arch and cervical great vessels are patent. Intracranial arteries are patent. No aneurysm, dissection, or occlusion. No abnormal intracranial enhancement. The visualized thyroid gland is unremarkable. No cervical mass or fluid collection. Lung apices clear. No acute fracture. IMPRESSION: 1. Unremarkable head CT. 2. Patent head and neck CTA. This document has been electronically signed by: Fede Arellano MD on 02/18/2025 02:55:27 Discharge Plan Discharge Clinical Impression: Acute viral syndrome Headache Qualifiers: Headache type: unspecified Headache chronicity pattern: acute headache I ntractability: not intractable Qualified Code(s): R51.9 - Headache, unspecified Patient Disposition: Home, Self-Care Instructions: Acute Headache (ED), Viral Syndrome (ED) Additional Instructions: Thank you for choosing [facility] Emergency Department for your care today. Thankfully your CT head, and CTA head and neck show no evidence of acute hemorrhage, vascular occlusion, or aneurysm. Your laboratory evaluation is reassuring. There does not appear to be any emergent cause for your headaches over the past week. At this time there is no indication for admission to the hospital or continued ED observation, and it is safe to discharge you home. Your headache occurred in conjunction with sinus congestion, chest congestion, and other viral URI symptoms. Your headache may be a result of a viral upper respiratory infection causing inflammation of your sinuses, however thankfully your workup was negative for COVID and influenza. You should take alternating (staggered) doses of ibuprofen 600mg and Tylenol 1000mg every 4 hours as needed for any additional pain. Please stay well hydrated and get plenty of rest. Please follow up with your primary care physician for re-evaluation, consideration of antibiotics if symptoms persist for greater than 10-14 days, additional management of your symptoms, and continued preventative care. If you do not have a primary care physician, please call the [facility] at [phone] to establish a new primary care physician. While waiting to establish your new primary care physician, you can call our Walk[facility]in [facility] at [phone] for non-emergency needs. Please return to the emergency department if you develop a severe or sudden change in your symptoms, a fever over 100.4 that does not improve with Tylenol or Ibuprofen, recurrent vomiting, or any other new or worsening symptoms or concerns. Prescriptions: No Action metoprolol succinate 25 mg tablet extended release 24 hr 25 mg PO DAILY Qty: 90 3RF trazodone 50 mg tablet 50 mg PO BEDTIME Qty: 90 1RF fluticasone propion-salmeterol [Advair Diskus] 100-50 mcg/dose blister with device 1 inh inhalation Q12H Qty: 60 3RF ferrous sulfate 324 mg (65 mg iron) tablet,delayed release (DR/EC) 324 mg PO DAILY MDD 324 mg 90 Days Qty: 90 0RF Rx Instructions: take one tablet by mouth daily. ipratropium bromide 21 mcg (0.03 %) spray,non-aerosol 2 spray intranasal BID Qty: 90 1RF albuterol sulfate 90 mcg/actuation HFA aerosol inhaler 2 puff inhalation Q4-6H PRN (Reason: shortness of breath or wheezing) Qty: 8.5 0RF ibuprofen 600 mg tablet 600 mg PO TID PRN (Reason: fever or pain) Qty: 20 0RF lorazepam [Ativan] 0.5 mg tablet 0.5 mg PO BID PRN (Reason: anxiety) Qty: 10 0RF gabapentin 100 mg capsule 100 mg PO BEDTIME 90 Days Qty: 90 0RF Referrals: Po,Kylie Wilson MD [Primary Care Provider, Internal Medicine] Clinical Impression: Acute viral syndrome; Headache Print Language: Nauruan
[2025-02-18 04:13] VITALS: BP 125/84; PULSE 70; RESP 16; TEMP 36.6; O2SAT 98
[2025-02-18 04:38] LABS: COVID-19 Test Negative (Negative); IDNOW Serial# 55D5AD1C; IDNOW Serial# 58CA691E; Influenza B2 Negative (Negative)
[2025-02-18 05:19] VITALS: BP 125/84; PULSE 70; RESP 16; TEMP 36.6; O2SAT 98
== END 2025-02-18 05:20 | disposition home or self-care (01) ==
PROVIDERS: Physician Assistant; Emergency Provider Emergency Medicine; PCP Internal Medicine
DX: B34.9 Viral infection, unspecified (principal); R51.9 Headache, unspecified; R11.0 Nausea; H53.143 Visual discomfort, bilateral; Z11.52 Encounter for screening for COVID-19; Z79.899 Other long term (current) drug therapy
CPT/HCPCS: 36415; 70496; 70498; 80053; 85025; 87502; 87635; 96361; 96374; 96375; 99284; 99285; J1200; J2270; J2405; J2765; Q9967

== ENCOUNTER → 2025-02-18 02:07 | Outpatient (BNV) | payer OTHER, SELFPAY | PROVIDERS: Emergency Provider Emergency Medicine; PCP Internal Medicine; Visit Provider Radiology Diagnostic Radiology | DX: R51.9 Headache, unspecified (principal) | CPT/HCPCS: 70496; 70498 ==

== ENCOUNTER 2025-02-22 08:56 | Outpatient (AMB) | payer OTHER, SELFPAY ==
--- OUTSIDE RECORDS SUMMARY | 2024-11-25 09:30 | XMS_ITS ---
Author Organization [facility] Address [address] [place] [address] Care Team Providers Care Net Architect Name Role Phone Kylie Grant MD Primary Care Provider Kevin Gill [phone] REASON FOR VISIT rectal bleeding,fam hx colon ca Encounters Encounter Location Date Provider Diagnosis [facility] [place] Outpatient [address] [place], [place] [phone] 11/25/2024 Kevin Andrews Plan Of Treatment No Information Progress Notes * PEDRO LUIS DUMONTDOB:[birth year] (45 yo M)Acc No.[id number]:11/25/2024 COLON WITH MAC Patient: PEDRO LUIS BOLES Provider: Sergio Andrews MD :1980 A ge:44 Y S ex:Male Date:11/25/2024 Address:[address] [place], [place] [phone] Pcp:Kylie Grant MD Subjective: * Chief Complaints: [...] MD Date: 0 11/25/2024 Generated for Arely flower/William/Daviditting on: 09:33 AM EDT
--- NOTE | 2025-02-22 09:00 | A.OFFVIS_ITS ---
Vital Signs 02/22/25 09:15 Height 5 ft 8 in Weight 253 lb 8.505 oz BMI 38.5 BP 136/86 Blood Pressure Location Lt brachial Position Sitting Pulse 77 Intake Visit Reasons: 4+ mth f/up Intake Note: Follow-up hasn't had afib c/o some fluttering, headache, flushing Contract Negotiation Specialist Required: No Allergies No Known Allergies Allergy (Verified 02/18/25 01:20) Medication List - Last Reconciled 02/22/25 by Luba Wang, MARCO-C albuterol sulfate 90 mcg/actuation 2 puffs inhalation Q4-6H PRN ferrous sulfate 324 mg PO DAILY 90 days MDD 324 mg fluticasone propion-salmeterol 100-50 mcg/dose (Advair Diskus) 1 inh inhalation Q12H gabapentin 100 mg PO BEDTIME 3 months ibuprofen 600 mg PO TID PRN ipratropium bromide 2 sprays intranasal BID lorazepam (Ativan) 0.5 mg PO BID PRN metoprolol succinate ER 25 mg PO DAILY trazodone 50 mg PO BEDTIME HPI HPI 4+ mth f/up: Details: Livan is a 45-year-old male with past medical history of asthma, sleep apnea, obesity, newer paroxysmal atrial fibrillation treated with rhythm control using Metoprolol and Flecanide 100mg bid who was referred to electrophysiology for ablation and underwent ablation 12/15/2024 and now presents for follow-up. Today he reports he had said some brief palpitations since the time of the ablation. He has had not had any definitive atrial fibrillation. He does wear a smart watch which tells him about his heart rates has not had anything concerning. He is no longer on flecainide and does not take anticoagulation. He is still on the metoprolol. His asthma has been controlled. No chest discomfort, shortness of breath, lightheadedness, presyncope, syncope. No leg edema. Describes himself as active throughout the day. Compliant with CPAP. [facility] Medical History Anemia Anxiety Atrial fibrillation COVID-19 Obese Asthma Surgical History Hx of appendectomy Family History Family/Other Lung cancer Social History Housing: Apartment Alcohol intake: former Patient Tobacco Use Status: Never used Tobacco e-Cigarette/Vaping Use: Never Used Second Hand Smoke Exposure: No Substance Use Type: Caffiene service: No Current occupational status: employed Current occupational exposures/hazards: No Cognitive needs: No Hearing needs: No Vision needs: No Review of Systems Const All systems reviewed & are unremarkable except as noted in HPI and below Denies chills, Denies fatigue, Denies fever(s), Denies frequent falls, Denies weakness, Denies weight gain and Denies weight loss ENT Denies dizziness Card Denies chest pain, Denies leg edema, Denies lightheadedness, Denies palpitations, Denies dyspnea, Denies dyspnea on exertion, Denies orthopnea and Denies other (loss of consciousness) Resp Denies cough, Denies dyspnea and Denies dyspnea on exertion GI Denies hematochezia and Denies change in stool character Musc Denies abnormal gait, Denies muscle weakness, Denies numbness, Denies radiating pain into limb and Denies tingling Neuro Denies abnormal gait, Denies dizziness, Denies frequent falls, Denies numbness, Denies tingling and Denies weakness Endo Denies fatigue and Denies palpitations Physical Exam Vital Signs: Last Vital Signs Pulse 77 02/22/25 09:15 BP 136/86 02/22/25 09:15 BMI result Body Mass Index 38.5 Const General: cooperative, healthy appearing, comfortable and no acute distress Orientation/consciousness: patient oriented x3 Neck Neck: Yes normal visual inspection and Yes no JVD Resp Effort & Inspection: normal respiratory effort Auscultation: clear to auscultation bilaterally, no crackles, no rales, no rhonchi and no wheezes Cardio Rate: regular rate Rhythm: regular rhythm Heart sounds: S1 normal heart sound present, S2 normal heart sound present, no gallops, no murmurs and no rubs Peripheral pulses: Peripheral pulses 2+ throughout Neuro General: patient oriented x3 Extrem General: Yes normal to inspection, No no pedal edema and No calf tenderness Psych Appearance: grossly normal Mental Status: mental status grossly normal Speech and movement: Normal speech and movement present Assessment & Plan Assessment & Plan (1) Paroxysmal A-fib: Code(s): I48.0 - Paroxysmal atrial fibrillation Category: Medical Plan: New finding of paroxysmal atrial fibrillation, May 2024 that was treated with rhythm control using metoprolol and flecainide. Chads Vasc score is 0 and he was not on anticoagulation. Echo done on 05/21/2024 showed EF greater than 70%, no regional wall motion abnormalities, no significant valve issues, left atrium normal size. Stress echocardiogram done 07/05/2024 with exercise 9 minutes, moderate shortness of breath, no EKG changes and no echo evidence of ischemia. Holter monitor 07/05/2024 for 3 days shows sinus rhythm with average heart rate 59, 2 minute episode of PAF, rate 133, rare VE. Home sleep study done 08/16/2024 shows mild sleep apnea which was treated with CPAP. He saw Dr. Collazo for electrophysiology and underwent atrial fibrillation ablation on 12/15/2024. At this time his only medication is metoprolol XL 25 mg daily. No known recurrent atrial fibrillation since his procedure. Pulse is regular on examination today. Has EP follow-up next month. Cardiology follow-up this office 6 months, sooner if needed. (2) Sleep apnea: Comment: He is using cpap more consistently. Code(s): G47.30 - Sleep apnea, unspecified Category: Medical Qualifiers: Sleep apnea type: unspecified type Qualified Code(s): G47.30 - Sleep apnea, unspecified Plan: Mild sleep apnea, following with pulmonology. Now on CPAP. Plan I discussed with the patient the management of atrial fibrillation post- ablation, emphasizing the importance of monitoring heart rate and synmptoms. Patient Instructions: - Continue taking metoprolol as prescribed. - Monitor heart rate using your smartwatch. - Follow up in six months for routine evaluation. Patient was informed and verbally consented to the use of an ambient scribe for clinic note documentation during this visit. Visit time spent on chart review, interview, assessment, orders, documentation. Coding Level of Care Code Est Pt Level 4 (18762) Complex EM visit Add On G2211 Diagnoses Paroxysmal A-fib I48.0 Sleep apnea, unspecified type G47.30 Sleep apnea type: unspecified type Time Spent (min) 28
[2025-02-22 09:15] VITALS: BP 136/86; PULSE 77; BMI 38.5
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
== END 2025-02-22 09:42 | disposition home or self-care (01) ==
LOC: HO.HCS 08:57
PROVIDERS: PCP Internal Medicine; Visit Provider Nurse Practitioner Family
DX: I48.0 Paroxysmal atrial fibrillation (principal); G47.30 Sleep apnea, unspecified
CPT/HCPCS: 99214; G2211

== ENCOUNTER 2025-02-24 10:55 | Outpatient (AMB) | payer OTHER, SELFPAY ==
--- OUTSIDE RECORDS SUMMARY | 2024-11-25 09:30 | XMS_ITS ---
Author Organization [facility] Address [address] [place] [address] Care Team Providers Care Tire Room Supervisor Name Role Phone Kylie Grant MD Primary Care Provider Kevin Gill [phone] REASON FOR VISIT rectal bleeding,fam hx colon ca Encounters Encounter Location Date Provider Diagnosis [facility] [place] Outpatient [address], [place] [phone] 11/25/2024 Kevin Andrews Plan Of Treatment No Information Progress Notes * PEDRO LUIS DUMONTDOB:[birth year] (45 yo M)Acc No.[id number]:11/25/2024 COLON WITH MAC Patient: PEDRO LUIS BOLES Provider: Sergio Andrews MD :1980 A ge:44 Y S ex:Male Date:11/25/2024 Address:[address] [place], [place] [phone] Pcp:Kylie Grant MD Subjective: * Chief Complaints: * 1 . Rectal bleeding,fam hx colon ca. * Medical History: Objective: * Vitals: Assessment: Plan: * Treatment: * * The named appointment provid er may or may not be the originator of this progress note, and it is not deemed complete until electronically signed by the appointment provider. Sign off status: Pending * Provider: Sergio Andrews MD Date: 0 11/25/2024 Generated for Arely flower/William/Afia on: 01:31 PM EDT
--- NOTE | 2025-02-24 11:04 | MHC.OFFVIS ---
Vital Signs 02/24/25 11:05 Height 5 ft 8 in Weight 252 lb 6.868 oz BMI 38.4 BP 108/72 Blood Pressure Location Lt brachial Position Sitting Pulse 79 Pulse Source Pulse Oximeter Pulse Oximetry (%) 98 Oxygen Delivery Method Room Air Intake Visit Reasons: Asthma Intake Note: pt is here for follow up of LIBRA and states asthma is okay and cpap is going well. Capacity Management Specialist Required: No Cattle Sticker: Cattle Sticker offered & declined Allergies No Known Allergies Allergy (Verified 02/24/25 11:16) Medication List - Last Reconciled 02/24/25 by Rose Obando MD albuterol sulfate 90 mcg/actuation 2 puffs inhalation Q4-6H PRN ferrous sulfate 324 mg PO DAILY 90 days MDD 324 mg fluticasone propion-salmeterol 100-50 mcg/dose (Advair Diskus) 1 inh inhalation Q12H gabapentin 100 mg PO BEDTIME 3 months ibuprofen 600 mg PO TID PRN ipratropium bromide 2 sprays intranasal BID lorazepam (Ativan) 0.5 mg PO BID PRN metoprolol succinate ER 25 mg PO DAILY trazodone 50 mg PO BEDTIME Do you need a note to return to daycare/school/sports/work: No HPI HPI Asthma: Details: Livan, 45 years old gentleman who is grossly obese, has diagnosis of obstructive sleep apnea partly due to his obesity and partly due to allergic rhinitis. He has been using CPAP regularly and sleeps good. He also has bronchial asthma which has remained under good control, by using Advair Diskus 100-50 b.i.d.. He hardly needs to use albuterol .. For his allergic rhinitis he does use ipratropium bromide 2 spray intranasal b.i.d., and is going to see ENT specialist in the near future. For sleep he does use trazodone 50 mg at bedtime and lorazepam 0.5 mg only p.r.n. [facility] Medical History (Updated 02/24/25 @ 11:28 by Rose Obando MD) Obesity (BMI 30-39.9) Anemia Anxiety Atrial fibrillation COVID-19 Obese Asthma Surgical History Hx of appendectomy Family History Family/Other Lung cancer Social History Housing: Apartment Alcohol intake: former Patient Tobacco Use Status: Never used Tobacco e-Cigarette/Vaping Use: Never Used Second Hand Smoke Exposure: No Substance Use Type: Caffiene service: No Current occupational status: employed Current occupational exposures/hazards: No Cognitive needs: No Hearing needs: No Vision needs: No Review of Systems Const All systems reviewed & are unremarkable except as noted in HPI and below Eyes Reports no additional complaints ENT Reports nasal congestion (Frequently especially if he tries to use the CPAP) Card Reports irregular heart rhythm (Recent history of paroxysmal atrial fib.) and Denies leg edema Resp Reports as per HPI GI Reports no additional complaints Reports no additional complaints Musc Reports no additional complaints Skin/Breast Reports system reviewed and no additional complaints, except as documented Neuro Reports no additional complaints Psych Reports no additional complaints Endo Reports no additional complaints Helder/Lymph Reports no additional complaints Physical Exam Vital Signs: Last Vital Signs Pulse 79 02/24/25 11:05 BP 108/72 02/24/25 11:05 Pulse Ox 98 02/24/25 11:05 Oxygen Delivery Method Room Air 02/24/25 11:05 BMI result Body Mass Index 38.4 Const General: healthy appearing (Except for being overweight), comfortable, no acute distress, alert and awake Orientation/consciousness: patient oriented x3 HEENT Head: Yes normal to inspection General nose exam: No nasal polyps present and No nasal discharge present Face and sinus: Yes sinuses nontender Mouth: oropharynx abnormals (Narrow and crowded, Mallampati scale 3) Throat: Yes posterior oropharynx normal Eyes General: appearance normal, both eyes and all related structures Neck Neck: Yes normal visual inspection, Yes no lymphadenopathy, Yes trachea midline and Yes no JVD Thyroid: Thyroid normal Chest Chest palpation & inspection: normal inspection of the chest, normal palpation of entire chest wall and no tenderness Resp Other: Lungs clear bilaterally, no wheezing or crepitations heard Effort & Inspection: normal respiratory effort Cardio Palpation: normal PMI Rate: regular rate Rhythm: regular rhythm Heart sounds: no gallops and no murmurs Peripheral pulses: Peripheral pulses 2+ throughout GI Palpation (GI): Soft to palpation, nontender, No hepatosplenomegaly present and no masses Auscultation: normal bowel sounds Back/Spine/Pelvis Thoracic/Lumbar Spine: thoracic and lumbar spine normal to inspection Skin General skin exam: no rashes or lesions noted Neuro General: patient oriented x3 and no focal motor deficits Cranial nerves: Yes CN's II-XII intact bilaterally Extrem General: Yes normal to inspection, Yes no clubbing, cyanosis or edema and Yes no calf tenderness Psych Appearance: grossly normal and well kempt Speech and movement: Normal speech and movement present Results Reviewed Results Reviewed: Compliance report is reviewed. He has used 30/30 nights., 100% Average use it per night 7 hours 28 minutes. Pressure used 10 -11 cm. .No significant air leak Residual AHI only 0.4 Assessment & Plan Assessment & Plan (1) Obesity (BMI 30-39.9): Comment: He remains grossly obese but has lost a few lb of weight Code(s): E66.9 - Obesity, unspecified Category: Medical Plan: Discussed with him and told him that he needs to continue losing weight, by controlling his diet. (2) Asthma: Comment: Mild intermittent bronchial asthma since childhood , seems to be controlled , as long as he is using Advair Diskus b.i.d.. Code(s): J45.909 - Unspecified asthma, uncomplicated Category: Medical Qualifiers: Asthma severity: severe Asthma persistence: persistent Asthma complication type: unspecified Qualified Code(s): J45.50 - Severe persistent asthma, uncomplicated Plan: Continue Advair Diskus 100-50 1 inhalation b.i.d. Albuterol HFA 2 puffs Q 4-6 hours only p.r.n.. (3) LIBRA on CPAP: Comment: He is known to have obstructive sleep apnea which is well controlled with the use of CPAP. Compliance is good and he sleeps well. Code(s): G47.33 - Obstructive sleep apnea (adult) (pediatric) Category: Medical Plan: Commended for good compliance and advised to continue using the CPAP regularly every night Coding Level of Care Code Est Pt Level 3 (91932) Diagnoses Obesity (BMI 30-39.9) E66.9 Severe persistent asthma, unspecified whether complicated J45.50 Asthma severity: severe Asthma persistence: persistent Asthma complication type: unspecified LIBRA on CPAP G47.33
[2025-02-24 11:05] VITALS: BP 108/72; PULSE 79; O2SAT 98; BMI 38.4
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
== END 2025-02-24 11:22 | disposition home or self-care (01) ==
LOC: HO.HPS 10:56
PROVIDERS: PCP Internal Medicine; Visit Provider Internal Medicine
DX: E66.9 Obesity, unspecified (principal); J45.50 Severe persistent asthma, uncomplicated; G47.33 Obstructive sleep apnea (adult) (pediatric)
CPT/HCPCS: 99213

== ENCOUNTER 2025-04-20 08:58 | Outpatient (REF) | payer OTHER, SELFPAY ==
--- NOTE | 2025-04-20 09:02 | PFT_ITS ---
Flows: FEV1: 89 % of predicted at 3.34 L FVC: 94 % of predicted at 4.45 L FEV1/FVC: 75 % Bronchodilator response: Present Volumes: Total lung capacity: 81 % of predicted at 5.44 L Residual volume: 73 % of predicted at 1.22 L Slow vital capacity: 83 % of predicted at 4.22 L Expiratory reserve volume: 43 % of predicted at 0.58 L Diffusion capacity: Normal Impression: No obstructive or restrictive ventilatory defect. Positive bronchodilator response. Decreased expiratory reserve volume suggests extrathoracic restriction likely secondary to abdominal obesity. MTDD
[2025-04-20 09:37] VITALS: PULSE 73
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
== END 2025-04-20 08:59 | disposition home or self-care (01) ==
LOC: HO.RESP 08:58
PROVIDERS: PCP Internal Medicine; Visit Provider Physician Assistant Medical
DX: G47.33 Obstructive sleep apnea (adult) (pediatric) (principal)
CPT/HCPCS: 94060; 94640; 94727; 94729

== ENCOUNTER → 2025-04-20 09:02 | Outpatient (BNV) | payer OTHER, SELFPAY | PROVIDERS: PCP Internal Medicine; Visit Provider Internal Medicine Pulmonary Disease | DX: G47.33 Obstructive sleep apnea (adult) (pediatric) (principal) | CPT/HCPCS: 94060; 94727; 94729 ==

== ENCOUNTER 2025-04-22 10:38 | Outpatient (REF) | payer OTHER, SELFPAY ==
[2025-04-22 11:04] LABS: MANUAL DIFF FLAG NO
[2025-04-22 11:13] LABS: Hematocrit 42.5 % (42.0-52.0); Hemoglobin 13.4 g/dl (14.0-18.0); Imm Gran Abs Auto 0.04 X10*3/uL (0.00-0.03); Imm Gran Pct Auto 0.5 % (0.0-0.4); Lymphocytes Absolute Auto 1.7 X10*3/uL (1.2-4.9); Mean Corpuscular HGB Conc 31.5 g/dl (31.0-36.0); Mean Corpuscular Hemoglobin 27.0 pg (27.0-33.0); Mean Corpuscular Volume 85.7 fL (80.0-98.0); NRBC Abs Auto 0.000 X10*3/uL (0.0-0.012); NRBC Pct Auto 0.0 /100WBC (0.0-0.2); Platelet Count 287 X10*3/uL (160-400); Red Blood Count 4.96 X10*6/uL (4.60-5.80); White Blood Count 7.7 X10*3/uL (4.8-10.8)
[2025-04-22 11:19] LABS: Appearance Urine Clear; Glucose Urine UA Negative (Negative); PH 6.5 (5.0-9.0); Specific Gravity - Urine 1.020 (1.005-1.025); UMIC TRIGGER UACC YES
[2025-04-22 11:44] LABS: Alanine Aminotransferase 31 U/L (0-40); Albumin Level 4.5 g/dL (3.5-5.0); Alkaline Phosphatase 65 U/L (39-117); Anion Gap 10 (12-20); Aspartate Amino Transferase 24 U/L (5-37); Blood Urea Nitrogen 22 mg/dL (9-16); Calcium 9.5 mg/dL (8.4-10.2); Carbon Dioxide 30 mmol/L (22-29); Chloride 107 mmol/L (96-108); Cholesterol 197 mg/dL (<200); Estimated Glomerular Filt Rate > 60; HDL Cholesterol 48 mg/dL (>40); Iron 77 mcg/dL (45-160); Percent Iron Saturation 25 % (15-50); Potassium 4.5 mmol/L (3.3-5.1); Sodium 142 mmol/L (135-145); Total Iron Binding Capacity 302 mcg/dL (228-428); Total Protein 7.5 g/dL (6.5-8.0); Triglycerides 82 mg/dL (<150); Unsaturated Iron Binding 225 ug/dL
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
== END 2025-04-22 10:39 | disposition home or self-care (01) ==
LOC: HO.LAB 10:38
PROVIDERS: PCP Internal Medicine
DX: Z01.810 Encounter for preprocedural cardiovascular examination (principal); F41.9 Anxiety disorder, unspecified; I48.91 Unspecified atrial fibrillation; D50.9 Iron deficiency anemia, unspecified; J45.50 Severe persistent asthma, uncomplicated; G47.30 Sleep apnea, unspecified; R12 Heartburn; Z13.21 Encounter for screening for nutritional disorder; Z13.6 Encounter for screening for cardiovascular disorders
CPT/HCPCS: 36415; 80053; 80061; 81001; 82306; 83540; 84443; 85025

== ENCOUNTER 2025-04-25 10:51 | Outpatient (AMB) | payer OTHER, SELFPAY ==
[2025-04-25 10:55] VITALS: BP 112/70; PULSE 64; RESP 18; O2SAT 97; BMI 40.3
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
== END 2025-04-25 11:42 | disposition home or self-care (01) ==
LOC: HO.HMCH 10:52
PROVIDERS: PCP Internal Medicine
DX: I48.91 Unspecified atrial fibrillation (principal); J45.50 Severe persistent asthma, uncomplicated; E66.01 Morbid (severe) obesity due to excess calories; Z68.41 Body mass index [BMI] 40.0-44.9, adult; F41.9 Anxiety disorder, unspecified; E78.00 Pure hypercholesterolemia, unspecified; R12 Heartburn; D50.9 Iron deficiency anemia, unspecified; G47.30 Sleep apnea, unspecified; H53.8 Other visual disturbances